=== PATIENT | female | born 1930 | race Two or more races ===

== ENCOUNTER 2016-03-18 13:18 | Inpatient (IN) | payer MEDICARE, OTHER ==
--- NOTE | 2016-03-18 17:34 | RAD ---
INDICATION: Shortness of breath. History of asthma. Previous cardiac surgery. COMPARISON: February 16, 2015 TECHNIQUE: Dual energy PA and routine lateral views of the chest were obtained. REPORT: Elevated lung volumes with mildly coarsened interstitial markings without change. Small calcified granulomas in the RIGHT mid to upper lung zone. LEFT nipple shadow noted. No alveolar consolidation, pleural effusion, pneumothorax. Median sternotomy wires, prosthetic aortic valve, RIGHT ventricular level solitary pacemaker lead. Cardiomegaly. Unremarkable central pulmonary vasculature. IMPRESSION: Stigmata of chronic obstructive pulmonary disease without superimposed acute pulmonary finding. Cardiomegaly without evidence for pulmonary edema.
[2016-03-18] MEDS ORDERED: Albuterol/Ipratropium NEB.SOL* Albuterol 2.5 MG/Ipratropium 0.5 MG 3 ML INH ONE (17:36)
[2016-03-18] MEDS ORDERED: predniSONE TAB* 20 MG PO ONE (17:36)
[2016-03-18 18:04] LABS: Add Diff/Slide Review? Slide Review Added; Comments Flag Yes; Hematocrit 25 % (35-47); Hemoglobin 8.6 g/dl (12.0-16.0); Mean Corpuscular HGB Conc 34 g/dl (31-36); Mean Corpuscular Hemoglobin 41 pg (27-31); Mean Corpuscular Volume 118 fL (80-97); Mean Platelet Volume 8 um3 (7.4-10.4); Red Blood Count 2.13 10^6/ul (4.0-5.4); Red Cell Distribution Width 22 % (10.5-15); White Blood Count 6.9 10^3/ul (3.5-10.8)
[2016-03-18 18:15] LABS: Albumin 4.7 g/dL (3.2-5.2); BUN/Creatinine Ratio 15.7 (8-20); EGFR African American 101.8 (>60); EGFR Non-African American 79.2 (>60); Globulin 2.1 g/dL (2-4); Potassium 3.6 mmol/L (3.5-5.0); Total Bilirubin 1.7 mg/dL (0.2-1.0); Total Protein 6.8 g/dL (6.4-8.9); Troponin I 0.03 ng/mL (<0.04)
[2016-03-18 18:24] LABS: Basophilic Stippling 1+; Macrocytosis 2+; Microcytosis 1+
[2016-03-18] MEDS ORDERED: Iodixanol* (CONTRAST) 320 MG/ML 100 ML SDV IV ONE (18:33)
--- NOTE | 2016-03-18 19:23 | RAD ---
INDICATION: Shortness of breath. Elevated d-dimer. COMPARISON: Chest radiograph of the same date. June 13, 2007 CT. TECHNIQUE: Multidetector CT images were obtained from the lung apices to the upper abdomen with 51 mL Visipaque 320 IV contrast. Pulmonary angiogram protocol. Multiplanar reformation including with maximum intensity projection. REPORT: Severe cardiomegaly as well as small dependent RIGHT pleural effusion with associated volume loss and bilateral compressive atelectasis. Prominence of the interstitial markings bilaterally with patchy groundglass opacity and prominent interlobular septa. Small calcified granulomas at the RIGHT upper to mid lung zone. No suspicious focal pulmonary lesions. Negative for pneumothorax. Negative for thoracic lymphadenopathy. Median sternotomy wires and prosthetic aortic valve. RIGHT ventricular pacemaker lead. Normal diameter thoracic aorta with calcific plaque. Early phase of enhancement precludes assessment for aortic dissection. Artifact mildly limits the CT pulmonary angiogram. No compelling filling defects are identified from the main to the subsegmental pulmonary arteries to indicate presence of a pulmonary embolism. Limited images through the upper abdomen are remarkable for cholelithiasis. Multiple healed bilateral rib fractures. Multilevel degenerative spondylosis. T10-T11 ankylosis. No suspicious focal osseous lesions evident. IMPRESSION: 1. No compelling evidence for pulmonary embolism. 2. The constellation of findings is most consistent with interstitial pulmonary edema with associated small RIGHT pleural effusion.
[2016-03-18] MEDS ORDERED: Ondansetron INJ* 2 MG/ML VIAL IV PRN (20:09)
[2016-03-18] MEDS ORDERED: Acetaminophen TAB* 325 MG PO PRN (20:09)
[2016-03-18] MEDS ORDERED: Furosemide IV* 10 MG/ML 10 ML VIAL (100 MG) IV ONE (20:16)
[2016-03-18] MEDS ORDERED: Potassium Chlor TAB* 20 MEQ TAB.ER PO ONE (20:47)
[2016-03-18] MEDS ORDERED: Enoxaparin(*) 30 MG/0.3 ML SYR SUBCUT SCH (21:00)
[2016-03-18 21:04] LABS: Magnesium 1.9 mg/dL (1.9-2.7)
[2016-03-18] MEDS: Albuterol 2.5 MG/3 ML NEB.SOL* (0.083%) INH PRN (21:04)
[2016-03-18] MEDS ORDERED: Magnesium Sulfate 1 GM IV* 1 GM/100 ML BAG IV ONE (21:10)
[2016-03-18] MEDS: Enoxaparin(*) 30 MG/0.3 ML SYR SUBCUT SCH (22:17)
[2016-03-19] MEDS: CMCS Pravastatin (NF) 20 MG TAB PO SCH ×2 (01:08→20:02)
[2016-03-19] MEDS ORDERED: Magnesium Oxide TAB* 400 MG PO ONE (01:41)
--- NOTE | 2016-03-19 01:44 | HP ---
MEDICINE HISTORY AND PHYSICAL: DATE OF ADMISSION: 03/18/16 PROVIDER: Eulogio Lynne NP ATTENDING PHYSICIAN: Dr. Lisa Marin* (as dictated by Eulogio Lynne NP). PRIMARY CARE PHYSICIAN: Dr. Emperatriz Holloway; Dr. Ana Oakley, Cardiology and Dr. Lunsford, credit risk specialist. CHIEF COMPLAINT: Shortness of breath, referred to ED by her credit risk specialist. HISTORY OF PRESENT ILLNESS: Ms. Hernandez is an 85-year-old female with a past medical history of chronic atrial fibrillation, hypertension, and COPD, who presents to the ED today for evaluation of shortness of breath. The patient herself is a fair historian and is able to tell me about events in her life in the past couple of days. However, in terms of medical history, the patient is very vague in terms of review of symptoms. She states that she does not know why she was brought here. She states that she went to her credit risk specialist this morning for her allergy shot, and she was seen by the credit risk specialist and told to come to the ER and was accompanied here by her aide. In discussion with the patient, I determined from the patient's conversation that she has been increasingly more short of breath, especially with activity. She says that she and her live in a two story home and that she goes up and down the stairs approximately "30 times a day" with no problem. However, recently she has had to stop and take a break while on the stairs. She also reports feeling weak last evening and having some weakness as well as not eating dinner the last evening and having decreased appetite and fluid intake. She also has not been able to do cooking at home as she usually does and does rely on her home health aide to assist with ADLs and activities throughout the home. She denies any chest pain. She denies any recent fever, cold or flu-like symptoms. She denies any weight gain or weight loss. She does not weigh herself. She denies any edema or orthopnea. She denies palpitations, dizziness or syncope. She denies abdominal pain, nausea, vomiting, diarrhea or dysuria. She denies any focal weakness or sensory loss, visual changes, hearing changes or swallowing difficulties. Upon arrival to the ED, the patient was reportedly short of breath and was found to be in AFib in the 80s and 90s. She reportedly was very dyspneic when lying flat on the ED stretcher. She did receive a DuoNeb, prednisone while here in the ER and reports feeling better at this time. At the time of my assessment, she is sitting up in the ED stretcher and is able to speak in full sentences without difficulty. PAST MEDICAL HISTORY: 1. Atrial fibrillation. 2. Hypertension. 3. COPD. 4. History of cardiac arrest x2. 5. History of tracheostomy with removal in the past. 6. History of PEG tube with removal in the past. 7. Osteoarthritis. 8. Osteoporosis. 9. Dyslipidemia. 10. History of TIA. 11. History of GI bleed while on Coumadin in 2012, not anticoagulated. 12. History of anxiety with depression. 13. Hypercholesterolemia. 14. History of hospitalization for chest pain in June 2011 during which time the patient's troponins were 0.1, 0.13 and 0.13. At that time, she was seen by Cardiology and discharged home. PAST SURGICAL HISTORY: 1. Aortic valve replacement with bioprosthetic valve and tricuspid repair at [facility] in January 2011. 2. Pacemaker placement in 2011. 3. History of bilateral total knee replacement. HOME MEDICATIONS: Per the patient's include: 1. Diltiazem ER 240 mg daily. 2. Aspirin 81 mg daily. 3. Pravastatin 10 mg daily. 4. Potassium chloride 20 mEq daily. 5. Levothyroxine 25 mcg daily. 6. Torsemide 10 mg Wednesday, Wednesdays and Fridays. 7. Albuterol 2 puffs inhaled q.4h. p.r.n. 8. Azelastine drops 1 drop both eyes b.i.d. ALLERGIES: No known allergies. FAMILY HISTORY: The patient reports parents who in their 50s while in [place]. No other known history. SOCIAL HISTORY: The patient denies any tobacco, alcohol or illicit drug use. She is retired. She used to do a lot of volunteer work, but states that she is no longer able to do this due to illness. She lives at home with her who is a [employer] professor. She does have a home health aide that helps to provide care at home. Her , Mr. Dariel Hernandez is her healthcare proxy and surrogate decision maker. REVIEW OF SYSTEMS: As per above. A 14-point review of systems was completed. All pertinent positives and negatives are included in the HPI, others not mentioned are negative. PHYSICAL EXAMINATION GENERAL: Ms. Hernandez is a very pleasant, talkative 85-year-old female. She is thin, frail appearing, sitting up in the ED stretcher in no acute distress. She is able to speak in full sentences. VITAL SIGNS: Temperature 97.2, heart rate 83, respiratory rate 22, blood pressure 110/58, and O2 saturation 96% on room air. HEENT: Head is atraumatic, normocephalic. Face is symmetrical. Pupils are equal, round and reactive to light. External ears and nose are normal. Oral mucosa appears moist. There is no oropharyngeal erythema. NECK: Supple. No lymphadenopathy appreciated. No JVD or bruits bilaterally. RESPIRATORY: Lungs are clear to auscultation but there are some mild basilar rales on auscultation posteriorly. There is no visible accessory muscle use. CARDIAC: Irregularly irregular rhythm with a notable systolic murmur that is heard at the upper sternal border and also at the apex. The patient did not have any lower extremity edema and distal pulses are 2+. ABDOMEN: Soft, nontender, nondistended. Bowel sounds are present in all 4 quadrants. MUSCULOSKELETAL: There is a no clubbing or cyanosis. The patient has full range of motion. NEUROLOGIC: Cranial nerves II through XII are grossly intact. The patient has equal other spatial scientist bilaterally. She is able to move all extremities. Sensation is intact to light touch to lower extremities. PSYCH: She is alert and oriented x3. Affect is appropriate. SKIN: Appears grossly intact. LABORATORY DATA AND DIAGNOSTIC STUDIES: CBC: WBC 6.9, hemoglobin 8.6, hematocrit 25, platelet count 307. D-dimer is 300. CMP: Sodium 125, potassium 3.6, chloride 97, carbon dioxide 29, BUN 11, creatinine 0.70, glucose 82. Lactic acid 1.0, calcium 10.0, total bilirubin 1.7, AST 24, ALT 18, alk phos 28, troponin 0.03. BNP 557. Albumin 4.7. The patient's chest x-ray shows stigmata of chronic obstructive pulmonary disease without superimposed acute pulmonary finding. Cardiomegaly without evidence of pulmonary edema. CT of the chest and thorax shows: 1. No compelling evidence of pulmonary embolism. 2. The constellation of findings is most consistent with interstitial pulmonary edema with associated small right pleural effusion. EKG shows atrial fibrillation with an incomplete right bundle branch blocks and nonspecific ST depression in the anterior leads. Old medical records were reviewed. ASSESSMENT AND PLAN: Ms. Hernandez is an 85-year-old female with a past medical history as stated above who presents today with shortness of breath, clinical history secondary to atrial fibrillation and mild congestive heart failure. We will admit her under OBV status to the telemetry floor. The plans are as follows: 1. Dyspnea, suspect congestive heart failure. Admit to telemetry. The patient will be on daily weights, I's and O's. Additionally, I will give her Lasix here and a small dose here in the ER, repeat in the morning. We will monitor patient on telemetry. She is currently rate controlled. Chest x-rays do not show any convincing infiltrates, and the patient is afebrile and has leukocytosis. She already appears to be somewhat improved. She did receive prednisone here in the ED. I did not appreciate any wheezing and will not continue the prednisone at this time but we will monitor closely. She is ordered p.r.n. albuterol as she does take at home. She is on torsemide at home which we will hold for the time being while she is taking IV Lasix. Also, recheck her troponins and maintain patient on aspirin. 2. Atrial fibrillation. Again, patient will be on telemetry, we will continue her on aspirin. Continue her home diltiazem per the patient's previous history and notes she was taken off Coumadin in the past due to gastrointestinal bleeding and is currently not anticoagulated. She is rate controlled, continue to monitor. Check K and mag and keep K above 4 and mag above 2, as well as trend troponins. 3. Asthma and chronic obstructive pulmonary disease. P.r.n. albuterol nebulizers are ordered. The patient has not ordered any other scheduled inhalers and does not appear she takes any other inhalers at home other than p.r.n. albuterol. I will ask nursing to obtain a medication list from the PCP to see if she is on other inhalers. However, the patient states that she only takes ProAir at home. 4. Anemia. The patient is markedly macrocytic, which I see she has had in the past. I will check a stool occult as well as a vitamin B12 and folate. This also may be secondary to chronic disease. Monitor this closely as this may be contributing to her symptoms. Recheck CBC tomorrow. 5. Hyperlipidemia. Continue statin. 6. Hypothyroidism. Continue levothyroxine. 7. FEN. The patient is ordered a heart healthy diet. 8. DVTs prophylaxis. Subcu Lovenox. 9. Code status. The patient is a full code. TIME SPENT: Time spent on this admission was approximately 60 minutes; more than half the time was spent [id number] with the patient obtaining history and physical, performing physical examination, and reviewing the plan of care. The plan of care was also reviewed with my attending, Dr. Marin, who is in agreement. EULOGIO LYNNE NP CC: Dr. Emperatriz Holloway; Dr. Ana Oakley* [id number]/CPS #: [id number] SOUMYA
[2016-03-19] MEDS: Azelastine 0.05% (OPHTH)(NF) 6 ML BTL BOTH EYES SCH ×3 (02:19→19:57)
[2016-03-19 05:08] LABS: Hematocrit 22 % (35-47); Hemoglobin 7.6 g/dl (12.0-16.0); Mean Corpuscular HGB Conc 34 g/dl (31-36); Mean Corpuscular Hemoglobin 40 pg (27-31); Mean Platelet Volume 8 um3 (7.4-10.4); Red Blood Count 1.89 10^6/ul (4.0-5.4); Red Cell Distribution Width 21 % (10.5-15)
[2016-03-19 05:10] LABS: Comments Flag Yes; Mean Corpuscular Volume 118 fL (80-97)
[2016-03-19 05:11] LABS: Add Diff/Slide Review? Slide Review Added
[2016-03-19 05:26] LABS: ALT 15 U/L (7-52); AST 20 U/L (13-39); Alkaline Phosphatase 40 U/L (34-104); Anion Gap 4 mmol/L (2-11); BUN/Creatinine Ratio 20.3 (8-20); Blood Urea Nitrogen 16 mg/dL (6-24); CO2 Carbon Dioxide 29 mmol/L (22-32); Calcium 9.3 mg/dL (8.6-10.3); Chloride 99 mmol/L (101-111); EGFR African American 88.5 (>60); EGFR Non-African American 68.8 (>60); Globulin 1.8 g/dL (2-4); Glucose 190 mg/dL (70-100); Indirect Bilirubin 0.8 mg/dL (0.3-1.0); Potassium 4.8 mmol/L (3.5-5.0); Sodium 132 mmol/L (133-145); Total Protein 5.8 g/dL (6.4-8.9)
[2016-03-19 05:28] LABS: Troponin I 0.03 ng/mL (<0.04)
[2016-03-19] MEDS: Levothyroxine TAB* 25 MCG TAB PO SCH (05:28)
[2016-03-19 06:08] LABS: Folate > 20.00 ng/mL (>3.99)
[2016-03-19 06:09] LABS: Vitamin B12 > 1450 pg/mL (180-914)
[2016-03-19 06:18] LABS: Immature Granulocytes 5 % (0-9); Neutrophil % 80 % (38-83)
[2016-03-19 06:19] LABS: Basophilic Stippling 1+; Hypochromasia 2+; Macrocytosis 2+; Polychromasia 1+
[2016-03-19] MEDS: Diltiazem CD CAP* 240 MG PO SCH (08:40)
[2016-03-19] MEDS: Aspirin Low Dose CHEW TAB* 81 MG PO SCH (08:41)
[2016-03-19] MEDS: Potassium Chlor TAB* 20 MEQ TAB.ER PO SCH (08:42)
[2016-03-19] MEDS: Furosemide IV* 10 MG/ML 10 ML VIAL (100 MG) IV SCH (08:43)
--- NOTE | 2016-03-19 10:53 | PN ---
Subjective Date of Service: 03/19/16 Interval History: Patient seen and examined at bedside. She denies CP, SOB, abd pain, n/v. She states, "I feel okay." Patient is calling out to staff on unit, rather than using call andrews. Telemetry: Atrial fibrillation 120s-140s Family History: Unchanged from Admission Social History: Unchanged from Admission Past Medical History: Unchanged from Admission Objective Active Medications: Acetaminophen (Tylenol Tab*) 650 mg PO Q4H PRN PRN Reason: FEVER/PAIN Albuterol (Ventolin 2.5 Mg/3 Ml Neb.Sasha*) 2.5 mg INH [id number] AWAKE PRN PRN Reason: sob/wheezing Last Admin: 03/18/16 21:04 Dose: 2.5 mg Aspirin (Aspirin Low Dose Tab*) 81 mg PO DAILY [facility] Last Admin: 03/19/16 08:41 Dose: 81 mg Azelastine HCl (Optivar 0.05% (Nf)) 1 drop BOTH EYES BID [facility] Last Admin: 03/19/16 07:18 Dose: Not Given Diltiazem HCl (Cardizem Cd Cap*) 240 mg PO DAILY [facility] Last Admin: 03/19/16 08:40 Dose: 240 mg Enoxaparin Sodium (Lovenox(*)) 30 mg SUBCUT Q24H [facility] Last Admin: 03/18/16 22:17 Dose: 30 mg Furosemide (Lasix Iv*) 20 mg IV DAILY [facility] Last Admin: 03/19/16 08:43 Dose: 20 mg Levothyroxine Sodium (Synthroid Tab*) 25 mcg PO DAILY@0600 [facility] Last Admin: 03/19/16 05:28 Dose: 25 mcg Ondansetron HCl (Zofran Inj*) 4 mg IV Q6H PRN PRN Reason: NAUSEA/VOMITING Potassium Chloride (Klor Con Er Tab*) 20 meq PO DAILY [facility] Last Admin: 03/19/16 08:42 Dose: 20 meq Pravastatin Sodium (Pravachol (Nf)) 10 mg PO QPM [facility] PRN Reason: Protocol Last Admin: 03/19/16 01:08 Dose: 10 mg Vital Signs 03/18/16 03/18/16 03/18/16 21:00 21:06 21:30 Temperature Pulse Rate 78 86 130 Respiratory 21 20 Rate Blood Pressure 124/66 119/75 (mmHg) O2 Sat by Pulse 97 99 94 Oximetry 03/18/16 03/18/16 03/18/16 22:00 22:11 22:30 Temperature Pulse Rate 84 79 91 Respiratory 24 24 27 Rate Blood Pressure 97/73 130/43 (mmHg) O2 Sat by Pulse 93 96 96 Oximetry 03/18/16 03/18/16 03/19/16 23:00 23:30 00:00 Temperature Pulse Rate 81 78 60 Respiratory 24 26 21 Rate Blood Pressure 132/78 (mmHg) O2 Sat by Pulse 93 95 97 Oximetry 03/19/16 03/19/16 03/19/16 00:01 00:30 01:00 Temperature Pulse Rate 72 65 82 Respiratory 23 26 25 Rate Blood Pressure 126/66 125/42 118/39 (mmHg) O2 Sat by Pulse 98 95 96 Oximetry 03/19/16 03/19/16 03/19/16 01:30 02:00 02:44 Temperature 98.3 F Pulse Rate 117 99 89 Respiratory 27 27 18 Rate Blood Pressure 147/47 114/69 141/50 (mmHg) O2 Sat by Pulse 95 97 99 Oximetry 03/19/16 03/19/16 03/19/16 02:54 03:06 07:32 Temperature 98.3 F 98.1 F Pulse Rate 89 85 Respiratory 16 16 18 Rate Blood Pressure 141/50 104/44 (mmHg) O2 Sat by Pulse 99 98 Oximetry 03/19/16 09:41 Temperature Pulse Rate 100 Respiratory 16 Rate Blood Pressure (mmHg) O2 Sat by Pulse 98 Oximetry Oxygen Devices in Use Now: None Appearance: Frail, elderly female, lying in bed, mildly tachypneic but able to talk in complete sentences Eyes: PERRLA Ears/Nose/Mouth/Throat: Clear Oropharnyx, Mucous Membranes Moist Neck: NL Appearance and Movements; NL JVP Respiratory: Symmetrical Chest Expansion and Respiratory Effort, Clear to Auscultation - diminished Cardiovascular: - - irregularly irregular, rapid, systolic murmur 3/6 Abdominal: NL Sounds; No Tenderness; No Distention Extremities: - - 1+ BLE edema Neurological: Alert and Oriented x 3 Lines/Tubes/Other Access: Clean, Dry and Intact Peripheral IV Nutrition: Taking PO's Result Diagrams: 03/19/16 04:58 03/19/16 04:58 Assess/Plan/Problems-Billing Assessment: Ms. Hernandez is an 85 yo female with a PMH of afib, HTN, COPD, OA, dyslipidemia, TIA, GIB, and anxiety/depression who presented on 03/18/16 with SOB secondary to afib and suspected CHF. - Patient Problems (1) Dyspnea Code(s): R06.00 - DYSPNEA, UNSPECIFIED Comment: Improved. Patient a poor historian; per her axle turner, pt presented to axle turner 's office SOB and with peripheral edema, suspect CHF exacerbation and afib with RVR. Patient also anemic. Continue small doses of IV Lasix, transfuse 2 unit PRBC today. Echocardiogram ordered. No increased O2 needs. (2) Atrial fibrillation with RVR Code(s): I48.91 - UNSPECIFIED ATRIAL FIBRILLATION Comment: Patient in RVR this morning; home diltiazem given. Patient also received 1 dose of digoxin with good effect, now rate controlled. Patient has a history of chronic atrial fibrillation, per her records. She is not on warfarin due to a previous GI bleed. (3) COPD (chronic obstructive pulmonary disease) Code(s): J44.9 - CHRONIC OBSTRUCTIVE PULMONARY DISEASE, UNSPECIFIED Comment: Continue Spiriva, PRN nebulizers. No increased oxygen needs. (4) Myelodysplasia (myelodysplastic syndrome) Code(s): D46.9 - MYELODYSPLASTIC SYNDROME, UNSPECIFIED Comment: Follows with Dr. Steel in the outpatient. Stool occult ordered. Patient dyspneic and has complicated cardiac history - in the presence of 7.6/22 on CBC , will transfuse 2 units. Recheck CBC in AM. (5) HLD (hyperlipidemia) Code(s): E78.5 - HYPERLIPIDEMIA, UNSPECIFIED Comment: Continue pravastatin. (6) Hypothyroidism Code(s): E03.9 - HYPOTHYROIDISM, UNSPECIFIED Comment: Continue levothyroxine. (7) DVT prophylaxis Comment: SQ Lovenox Status and Disposition: OBV admit to inpatient.
[2016-03-19] MEDS ORDERED: Digoxin IV* 0.5 MG/2 ML AMP (0.25 MG/ML) IV SLOW PU ONE (11:08)
[2016-03-19] MEDS: Albuterol 2.5 MG/3 ML NEB.SOL* (0.083%) INH PRN ×2 (17:09→21:21)
[2016-03-19] MEDS: MAGNESIUM CITRATE PO SCH (20:03)
[2016-03-19] MEDS: Enoxaparin(*) 30 MG/0.3 ML SYR SUBCUT SCH (21:26)
[2016-03-20 05:31] LABS: Hematocrit 32 % (35-47); Hemoglobin 11.2 g/dl (12.0-16.0); Mean Corpuscular HGB Conc 35 g/dl (31-36); Mean Corpuscular Hemoglobin 37 pg (27-31); Mean Corpuscular Volume 105 fL (80-97); Mean Platelet Volume 8 um3 (7.4-10.4); Red Blood Count 3.08 10^6/ul (4.0-5.4); Red Cell Distribution Width 30 % (10.5-15); White Blood Count 8.2 10^3/ul (3.5-10.8)
[2016-03-20 05:33] LABS: Add Diff/Slide Review? Slide Review Added; Comments Flag Yes
[2016-03-20] MEDS: Levothyroxine TAB* 25 MCG TAB PO SCH (05:39)
[2016-03-20] MEDS: MAGNESIUM CITRATE PO SCH (08:10)
[2016-03-20] MEDS: Azelastine 0.05% (OPHTH)(NF) 6 ML BTL BOTH EYES SCH (08:10)
[2016-03-20] MEDS: Potassium Chlor TAB* 20 MEQ TAB.ER PO SCH (08:15)
[2016-03-20] MEDS: Aspirin Low Dose CHEW TAB* 81 MG PO SCH (08:15)
[2016-03-20] MEDS: Diltiazem CD CAP* 240 MG PO SCH (08:15)
[2016-03-20] MEDS: Furosemide IV* 10 MG/ML 10 ML VIAL (100 MG) IV SCH (08:15)
[2016-03-20] MEDS ORDERED: Spiriva Inhaler DEVICE* 1 EACH DEVICE INH ONE (09:00)
[2016-03-20] MEDS ORDERED: Prenatal Vitamin TAB PO SCH (09:00)
[2016-03-20] MEDS ORDERED: Calcium Citrate TAB* 200 MG PO SCH (09:00)
[2016-03-20] MEDS ORDERED: Tiotropium CAP.INH* CAP.INH/18 MCG (USE ORDER SET !) INH SCH (09:00)
[2016-03-20] MEDS ORDERED: Cholecalciferol TAB* 400 UNIT PO SCH (09:00)
[2016-03-20] MEDS: Albuterol 2.5 MG/3 ML NEB.SOL* (0.083%) INH PRN (09:20)
[2016-03-20 11:29] VITALS: BP 126/50
--- NOTE | 2016-03-20 11:56 | ED ---
Brisa Gabriel Adam, scribed for Vito Hoyos MD on 03/18/16 at 1725 . Shortness of Breath - HPI Summary HPI Summary: An 85 y/o female presents to the ED sent from her carton forming machine tender (Dr. Lunsford) c/o SOB for 1 week, aggravated by movement and worse in the morning. Other symptoms include increased edema in her lower extremities, increased thirst, and decreased appetite. Uses a nebulizer at home. She denies any cough or CP. PMHx includes hyperlipidemia, paroxysmal Afib, osteoporosis, asthma, and an implanted pacemaker. FHx is negative. Does not use alcohol or tobacco. - History of Current Complaint Chief Complaint: EDShortnessOfBreath Time Seen by Provider: 03/18/16 16:42 Hx Obtained From: Patient, Family/Cooker Helper - and tree worker Onset/Duration: Gradual Onset, Lasting Weeks - 1 week Current Severity: Mild Dyspnea At: Exertion Aggrevating Factors: Movement Alleviating Factors: Nothing Associated Signs & Symptoms: Edema - lower extremity - Allergy/Home Medications Allergies/Adverse Reactions: Allergies Allergy/AdvReac Type Severity Reaction Status Date / Time No Known Allergies Allergy Verified 02/16/15 08:14 PMH/Surg Hx/FS Hx/Imm Hx Cardiovascular History: Reports: Hx Atrial Fibrillation, Hx Hypercholesterolemia , Hx Pacemaker/ICD, Other Cardiovascular Problems/Disorders - open heart surgery Respiratory History: Reports: Hx Asthma, Hx Chronic Obstructive Pulmonary Disease (COPD) - Surgical History Surgery Procedure, Year, and Place: open heart, unsure of year. knee surgery. Pacemaker Infectious Disease History: No Infectious Disease History: Denies: Traveled Outside the [place] in Last 30 Days - Family History Known Family History: Negative: Cardiac Disease, Diabetes - Social History Occupation: Retired Lives: With Family Alcohol Use: None Substance Use Type: Reports: None Smoking Status (MU): Never Smoked Tobacco Review of Systems Positive: Other - Decreased appetite. Increased thirst.. Negative: Fever, Chills Eyes: Negative Negative: Erythema ENT: Negative Negative: Sore Throat Cardiovascular: Negative Negative: Chest Pain Positive: Shortness Of Breath. Negative: Cough Negative: Abdominal Pain, Vomiting, Nausea Genitourinary: Negative Negative: dysuria, hematuria Positive: Edema - Lower extremity. Negative: Myalgia Skin: Negative Negative: Rash Neurological: Negative, Other - Negative: dizziness Psychological: Normal All Other Systems Reviewed And Are Negative: Yes Physical Exam - Summary Physical Exam Summary: Constitutional: Well-developed, Well-nourished, Alert. (-) Distressed Skin: Warm, Dry HENT: Normocephalic; Atraumatic Eyes: Conjunctiva normal Neck: Musculoskeletal ROM normal neck. (-) JVD, (-) Stridor, (-) Tracheal deviation Cardio: Rhythm regular, rate normal, Heart sounds normal; Intact distal pulses; The pedal pulses are 2+ and symmetric. Radial pulses are 2+ and symmetric. (-) Murmur Pulmonary/Chest wall: Effort normal. (-) Respiratory distress, (-) Wheezes, (-) Rales, Faint crackles in bilateral lung bases Abd: Soft, (-) Tenderness, (-) Distension, (-) Guarding, (-) Rebound Musculoskeletal: (-) Edema Lymph: (-) Cervical adenopathy Neuro: Alert, Oriented x3 Psych: Mood and affect Normal Vital Signs On Initial Exam: Initial Vitals Temp Pulse Resp BP Pulse Ox 97.2 F 90 16 121/78 97 03/18/16 13:26 03/18/16 13:26 03/18/16 13:26 03/18/16 13:26 03/18/16 13:26 Diagnostics - Vital Signs Vital Signs Temp Pulse Resp BP Pulse Ox 03/18/16 13:26 97.2 F 90 16 121/78 97 - Laboratory Result Diagrams: 03/18/16 17:47 03/18/16 17:47 Lab Statement: Any lab studies that have been ordered have been reviewed, and results considered in the medical decision making process. - Radiology CXR Xray Interpretation: Positive (See Comments) - IMPRESSION: Stigmata of chronic obstructive pulmonary disease without superimposed acute pulmonary finding. Cardiomegaly without evidence for pulmonary edema. Radiology Interpretation Completed By: Radiologist - EKG 13:33 Cardiac Rate: NL - 82 EKG Rhythm: Atrial Fibrillation EKG Interpretation: No STEMI, RBBB Course/Dx - Course Assessment/Plan: Chronic anemia. Do not suspect anemia sole source of SOB. R/O PE, RO acute coronary syndrome. - Diagnoses Provider Diagnoses: Dyspnea on exertion - Physician Notifications Discussed Care of Patient With: Dr. Schmidt (19:00) - Agrees to admit patient and is aware that CTA chest results are not back yet. Discharge - Discharge Plan Condition: Stable Disposition: ADMITTED TO [facility] documentation as recorded by the Brisa lobo Adam accurately reflects the service I personally performed and the decisions made by me, Vito Hoyos MD.
--- NOTE | 2016-03-20 12:38 | ECHO ---
Patient: KYUNG SAUCEDO [facility] Rec#: [id number] : 1930 Date: 03/20/2016 Age: 85y Height: 0 cm / .0 in Weight: 0 kg / .0 lbs Sex: F BSA: 1.13 Room#: [facility] Admit Date#: 03/19/2016 Type: Inpatient Referring: Renetta Ballard Reading: Aurelio Lisa MD Director Intelligence Analysis Programs: Derek Wooten RDCS Transthoracic Echocardiogram Indication: CHF BP: 148/77 HR: 84 Rhythm: A-Fib Findings History: A.fib, HTN, COPD, cardiomegaly, cardiac arrest, HLD, TIA, bioprosthetic AVR, pacemaker Technical Comments: The study quality is good. Left Ventricle: The left ventricular chamber size is normal. Mild concentric left ventricular hypertrophy is observed. Global left ventricular wall motion and contractility are within normal limits. The left ventricle appears hyperdynamic. The estimated ejection fraction is greater than 65%. The assessment of diastolic function is non-diagnostic. Left Atrium: The left atrium is severely dilated. Right Ventricle: The right ventricular cavity size is normal. A pacemaker wire is visualized in the right ventricle. Right Atrium: The right atrium is moderate to severely dilated. Aortic Valve: The bio-prosthetic aortic valve appears to be functioning normally. Mitral Valve: Moderate mitral annular calcification present. There is mild mitral valve prolapse. There is moderate mitral regurgitation. There is borderline mitral stenosis. Tricuspid Valve: There is mild tricuspid regurgitation. There is evidence of mild to moderate pulmonary hypertension. Pulmonic Valve: There is mild pulmonic regurgitation. Pericardium: There is no pericardial effusion. No pleural effusion is present. Aorta: There is no dilatation of the ascending aorta. The aortic arch is not well visualized. There is no dilation of the aortic root. Pulmonary Artery: The main pulmonary artery is not well visualized. Venous: The inferior vena cava appears normal in size. There is a greater than 50% respiratory change in the inferior vena cava dimension. Summary: There are no significant changes when compared to the previous study done on 02/28/16, no overt sig changes noticed. Conclusions Mild concentric left ventricular hypertrophy is observed. The left ventricle appears hyperdynamic. The estimated ejection fraction is greater than 65%. The left atrium is severely dilated. The right atrium is moderate to severely dilated. The right atrium is moderate to severely dilated. The bio-prosthetic aortic valve appears to be functioning normally. There is mild mitral valve prolapse. There is moderate mitral regurgitation. There is mild tricuspid regurgitation. There is evidence of mild to moderate pulmonary hypertension. Measurements Name Value Normal Range RVIDd (AP) 2D 1.2 cm (0.9 - 2.6) RVDdMajor (2D) 3 cm (2.2 - 4.4) RAd ISD 4CH 5.4 cm (3.4 - 4.9) RA (A4C)W 3.6 cm (2.9 - 4.6) IVSd (2D) 1.2 cm (0.6 - 1) LVPWd (2D) 1.1 cm (0.6 - 1) LVIDd (2D) 3.4 cm (3.6 - 5.4) LVIDs (2D) 3 cm - Aortic Annulus 1.3 cm (1.4 - 2.6) Ao root diameter (2D) 1.6 cm (2.1 - 3.5) Ascending Ao 3.5 cm (2.1 - 3.4) LA dimension (AP) 2D 4.6 cm (2.3 - 3.8) LAd ISD 4CH 5.5 cm (2.9 - 5.3) LA ISD 4CH W 5.3 cm (2.5 - 4.5) Name Value Normal Range LA ESV SP 4CH (A/L) 132.68 ml - LA ESV SP 2CH (A/L) 60.7 ml - LA ESV BP (A/L) 95.07 ml - LA ESV BP (A/L) index 84.13 ml/m2 - LA ESV SP 4CH (MOD) 106.65 ml - LA ESV SP 2CH (MOD) 61.79 ml - Name Value Normal Range MV E-wave Vmax 1.37 m/sec - MV deceleration time 102.08 msec - MV A-wave Vmax 0.44 m/sec - MV E:A ratio 3.16 ratio - LV septal e' Vmax 0.5 m/sec - LV lateral e' Vmax 0.7 m/sec - Name Value Normal Range AV Vmax 2.3 m/sec - AV VTI 40.5 cm - AV peak gradient 21 mmHg - AV mean gradient 12 mmHg - LVOT diameter 1.7 cm - LVOT Vmax 0.76 m/sec - LVOT VTI 14.8 cm - KIMBERLEY (continuity Vmax) 0.8 cm2 - KIMBERLEY (continuity VTI) 0.8 cm2 - Name Value Normal Range MV Vmax 0.97 m/sec - MV VTI 13.77 cm - MV peak gradient 5.38 mmHg - MV mean gradient 1.47 mmHg - MV PHT 38.79 msec - MVA (PHT) 5.67 cm2 - MVA (continuity VTI) 2.01 cm2 - Name Value Normal Range TR Vmax 3.3 m/sec - TR peak gradient 43 mmHg - IVC diameter 1.5 cm - Name Value Normal Range PV Vmax 0.87 m/sec - PV peak gradient 3.01 mmHg -
--- NOTE | 2016-03-20 14:10 | DCNOTE ---
Subjective Date of Service: 03/20/16 Interval History: Patient seen and examined at bedside. She is laying comfortably in the bed at 30 degrees. Her home health nurse and are in the room with her. The patient and her nurse report that she does much of the cooking. The nurse reports that the patient does use a lot of pre-prepared foods such as rice-a- nadine and canned goods. The patient also states, "I add a lot of salt with the spices." We discussed the risk of increased sodium intake with her history of right and left sided CHF. The patient and her were able to verbalize back to me the importance of reducing sodium intake and choosing no added sodium foods. The patient reports she "fatigues easily;" PT reports that the patient was very driven to walk and insisted on walking longer distances around the unit. No acute PT concerns. She reports chronic belly pain but agrees that she will follow up with her PCP and perhaps GI in order to address this, as it has been ongoing for several months. She has no increased O2 needs. She denies CP, SOB at rest, n/v. She does become mildly dyspneic with exertion. and home nurse feel she is at her baseline. Telemetry: Afib 70s-80s Family History: Unchanged from Admission Social History: Unchanged from Admission Past Medical History: Unchanged from Admission Objective Active Medications: Acetaminophen (Tylenol Tab*) 650 mg PO Q4H PRN PRN Reason: FEVER/PAIN Last Admin: 03/19/16 13:31 Dose: 650 mg Albuterol (Ventolin 2.5 Mg/3 Ml Neb.Sasha*) 2.5 mg INH [id number] AWAKE PRN PRN Reason: sob/wheezing Last Admin: 03/20/16 09:20 Dose: 2.5 mg Aspirin (Aspirin Low Dose Tab*) 81 mg PO DAILY [facility] Last Admin: 03/20/16 08:15 Dose: 81 mg Azelastine HCl (Optivar 0.05% (Nf)) 1 drop BOTH EYES BID [facility] Last Admin: 03/20/16 08:10 Dose: Not Given Calcium Citrate (Citracal Tab*) 200 mg PO DAILY [facility] Last Admin: 03/20/16 08:10 Dose: Not Given Cholecalciferol (Vitamin D Tab*) 400 unit PO DAILY [facility] Last Admin: 03/20/16 08:15 Dose: 400 unit Diltiazem HCl (Cardizem Cd Cap*) 240 mg PO DAILY [facility] Last Admin: 03/20/16 08:15 Dose: 240 mg Enoxaparin Sodium (Lovenox(*)) 30 mg SUBCUT Q24H [facility] Last Admin: 03/19/16 21:26 Dose: 30 mg Furosemide (Lasix Iv*) 20 mg IV DAILY [facility] Last Admin: 03/20/16 08:15 Dose: 20 mg Levothyroxine Sodium (Synthroid Tab*) 25 mcg PO DAILY@0600 [facility] Last Admin: 03/20/16 05:39 Dose: 25 mcg Multivitamins ( Vitamin Tab*) 1 tab PO DAILY [facility] Last Admin: 03/20/16 08:15 Dose: 1 tab Non-Formulary Medication (Magnesium Citrate (Mg Suppleme [Magnesium Citrate]) 200 mg PO BID [facility] Last Admin: 03/20/16 08:10 Dose: Not Given Ondansetron HCl (Zofran Inj*) 4 mg IV Q6H PRN PRN Reason: NAUSEA/VOMITING Potassium Chloride (Klor Con Er Tab*) 20 meq PO DAILY [facility] Last Admin: 03/20/16 08:15 Dose: 20 meq Pravastatin Sodium (Pravachol (Nf)) 10 mg PO QPM [facility] PRN Reason: Protocol Last Admin: 03/19/16 20:02 Dose: 10 mg Tiotropium [place] (Spiriva Cap.Inh*) 1 cap INH DAILY [facility] Last Admin: 03/20/16 09:20 Dose: 1 cap Vital Signs 03/19/16 03/19/16 03/19/16 20:00 20:11 20:16 Temperature 98.2 F 98.0 F Pulse Rate 84 72 Respiratory 16 17 Rate Blood Pressure 116/56 114/69 (mmHg) O2 Sat by Pulse 97 98 Oximetry 03/19/16 03/20/16 03/20/16 23:23 03:23 07:36 Temperature 98.4 F 97.7 F 97.4 F Pulse Rate 88 93 105 Respiratory 16 20 20 Rate Blood Pressure 145/58 148/77 143/61 (mmHg) O2 Sat by Pulse 95 99 96 Oximetry 03/20/16 03/20/16 03/20/16 08:00 09:23 10:58 Temperature 98.3 F Pulse Rate 55 108 Respiratory 20 20 18 Rate Blood Pressure 126/50 (mmHg) O2 Sat by Pulse 98 99 Oximetry Oxygen Devices in Use Now: None Appearance: Frail, elderly female patient, lying in bed, in NAD Eyes: PERRLA Ears/Nose/Mouth/Throat: Mucous Membranes Moist Neck: NL Appearance and Movements; NL JVP Respiratory: Symmetrical Chest Expansion and Respiratory Effort, Clear to Auscultation Cardiovascular: - - S1, S2 irregular rate/rhythm Abdominal: NL Sounds; No Tenderness; No Distention Extremities: No Edema Neurological: Alert and Oriented x 3 Lines/Tubes/Other Access: Clean, Dry and Intact Peripheral IV Nutrition: Taking PO's Result Diagrams: 03/20/16 05:03 03/19/16 04:58 Microbiology and Other Data: Microbiology 03/20/16 11:20 Nasal Screen MRSA (PCR)(JACOB) - Final Nasal Mrsa Negative Assess/Plan/Problems-Billing Assessment: Ms. Hernandez is an 85 yo female with a PMH of afib, HTN, COPD, OA, dyslipidemia, TIA, GIB, and anxiety/depression who presented on 03/18/16 with SOB secondary to afib and suspected CHF. - Patient Problems (1) Dyspnea Code(s): R06.00 - DYSPNEA, UNSPECIFIED Comment: Improved. Suspect CHF exacerbation and afib with RVR coupled with anemia. No increased O2 needs. (2) CHF exacerbation Code(s): I50.9 - HEART FAILURE, UNSPECIFIED Comment: Patient with a history of left and right sided CHF. Suspect patient's salt intake precipitated exacerbation and pushed patient into RVR. Extensive education provided on limiting salt intake. Family and pt verbalized understanding. Continue outpatient follow-up with PCP. Continue Torsemide. (3) Atrial fibrillation with RVR Code(s): I48.91 - UNSPECIFIED ATRIAL FIBRILLATION Comment: Rate controlled. Continue diltiazem. Patient has a history of chronic atrial fibrillation, per [facility] records. She is not on warfarin due to a previous GI bleed. I did discuss reinitiation of anticoagulation, pt and family will address with PCP. (4) COPD (chronic obstructive pulmonary disease) Code(s): J44.9 - CHRONIC OBSTRUCTIVE PULMONARY DISEASE, UNSPECIFIED Comment: Continue Spiriva, PRN nebulizers. No increased oxygen needs. (5) Myelodysplasia (myelodysplastic syndrome) Code(s): D46.9 - MYELODYSPLASTIC SYNDROME, UNSPECIFIED Comment: H/H improved. Recheck CBC next week and follow-up with PCP. Follows with Dr. Steel in the outpatient. Unable to obtain stool occult. (6) HLD (hyperlipidemia) Code(s): E78.5 - HYPERLIPIDEMIA, UNSPECIFIED Comment: Continue pravastatin. (7) Hypothyroidism Code(s): E03.9 - HYPOTHYROIDISM, UNSPECIFIED Comment: Continue levothyroxine. (8) DVT prophylaxis Comment: SQ Lovenox Status and Disposition: OBV admit to inpatient. D/c to home.
--- NOTE | 2016-03-21 21:23 | DS ---
MEDICINE DISCHARGE SUMMARY: DATE OF ADMISSION: 03/18/16 DATE OF DISCHARGE: 03/20/16 ATTENDING PHYSICIAN: Dr. Stephan Gonzales *(as dictated by Eulogio Lynne NP). PRIMARY CARE PROVIDER: Dr. Gudelia Holloway. PRIMARY DISCHARGE DIAGNOSES: 1. Congestive heart failure exacerbation. 2. Atrial fibrillation with RVR. 3. Anemia, likely secondary to myelodysplastic syndrome. SECONDARY DISCHARGE DIAGNOSES: 1. Hypertension. 2. Chronic obstructive pulmonary disease. 3. Osteoarthritis. 4. Osteoporosis. 5. Dyslipidemia. 6. History of GI bleed on Coumadin in 2011. 7. History of transient ischemic attack. 8. History of anxiety with depression. 9. Hypercholesterolemia. 10. History of hospitalization for chest pain in June 2011. 11. History of cardiac arrest x2. 12. History of tracheostomy removal in the past. 13. History of PEG tube with removal in the past. 14. History of aortic valve replacement with bioprosthetic valve and tricuspid repair in 2010. 15. Pacemaker placement in 2011. 16. History of congestive heart failure. 17. Myelodysplastic syndrome. MEDICATIONS AT DISCHARGE: 1. Torsemide 10 mg Wednesday, Wednesday, Wednesday. 2. Spiriva 18 mcg daily. 3. Pravastatin 10 mg daily. 4. Potassium chloride ER 10 mEq daily. 5. Multivitamin 1 tab daily. 6. Magnesium citrate 200 mg b.i.d. 7. Levothyroxine 25 mcg daily. 8. Glucosamine chondroitin 1 chew daily. 9. Perforomist nebulizer solution 20 mcg inhaled b.i.d. 10. Diltiazem 240 mg daily. 11. Calcium citrate vitamin D 1 tab daily. 12. Budesonide 0.25 mg inhaled b.i.d. 13. Azelastine eyedrops 1 drop both eyes b.i.d. 14. Aspirin 81 mg daily. 15. Albuterol 2 puffs inhaled q.4 hours p.r.n. DIAGNOSTIC TESTS DURING THE PATIENT'S COURSE OF STAY: Chest x-ray. Impression : Stigmata of chronic obstructive pulmonary disease without superimposed acute pulmonary findings. Cardiomegaly without evidence for pulmonary findings. Cardiomegaly without evidence for pulmonary edema. CT of the chest and thorax. Impression: No compelling evidence for pulmonary embolism. Constellation of findings is most consistent with interstitial pulmonary edema with associated small right pleural effusion. Transthoracic echocardiogram. Conclusion: Mild concentric left ventricular hypertrophy is observed. The left ventricle appears hyperdynamic. The estimated ejection is greater than 65%. The left atrium is severely dilated. The right atrium is moderately to severely dilated. The bioprosthetic aortic valve appears to be functionally normal. There is mild mitral valve prolapse. There is moderate mitral regurgitation. There is mild tricuspid regurgitation. There is evidence of [id number] pulmonary hypertension. There are no significant changes when compared to the previous study done on 02/28/16. No overt significant change is noted. HOSPITAL COURSE OF STAY: For full details, please refer to the H and P. In summary, Ms. Hernandez is an 85-year-old female with a past medical history as stated above who presented to the ED on 03/18/16 after being referred by her wood pile driver operator, Dr. Lunsford. I spoke with Dr. Lunsford and she stated that when the patient arrived to the office that she was short of breath and had peripheral edema. She stated that she did not know the patient even had a history of atrial fibrillation and was not aware of her cardiac history. This is conflicting with my interview with the patient who was very vague as per her cardiac history and her symptoms. She stated that she did not know why she was referred to the ED and stated that she felt fine. However, in conversation, the patient did state that she had increased dyspnea with exertion at home, had decreased p.o. intake, has been feeling increasingly more weak. Upon evaluation , the patient was found to be in atrial fibrillation in the ED and was noticeably dyspneic when she was lying flat on the ED stretcher. She was treated with DuoNeb with prednisone which did seem to treat her symptoms. I also gave the patient some Lasix with good effect and continued the patient on IV Lasix while she was here in the hospital. She did have a period the following morning where she went into rapid AFib which we were able to control with her home diltiazem and a dose of digoxin. The patient does have a history of MDS. She does follow Dr. Steel and she was notably anemic on 03/19/16 with a hemoglobin and hematocrit of 7.6 and 22; given her cardiac history and her symptoms, she was transfused 2 units of blood with good effect and she is now 11.2 and 32. I did attempt to obtain a stool occult, but the patient did not have any stool in the rectal vault at the time of my attempt. We were not able to obtain a stool sample prior to discharge. The patient will follow up with her PCP and obtain a CBC in the outpatient setting to monitor her CBC. Additionally, I was able to speak with the family regarding the patient prior to discharge. Again, the patient was not very forthcoming in providing details at home; however, when I spoke with her home health nurse and her who came in to see her on the day of discharge, I was able to determine that the patient does do cooking at home and she did state that she does add a lot of salt to her food. She also states that that they use a lot of prepared food such as Rice-A-Malcom and canned goods. We discussed hidden salt in these foods as well as the importance of limiting salt intake in order to help control her CHF and limit the strain on her heart. Her home health nurse and verbalized understanding. The patient was able to verbalize back to me that she will be more mindful of her salt intake and try not to use as much pre- prepared foods that comes with salt already added in. The patient most likely due to her diet had a CHF exacerbation which may have worsened her atrial fibrillation and precipitated her RVR. The patient's states that he does make sure she takes all of her medications when I expressed concern that the patient was not taking her medications as prescribed because when I asked her what she takes, she was unable to tell me and told me she takes no pills. She was also seen using her Spiriva as a rescue inhaler while she was here in the hospital. We did discuss the important use of this. However, her was able to appropriately tell me how to use these medications. In any case, we did obtain a VNS referral to evaluate in the home and to see if any additional services we can offer this family. The patient had some other chronic complaints prior to discharge such as belly pain that comes and goes. However, she denies any vomiting or bloody stools. She says it does happen after eating. I did advise her to stay sitting up after eating and also recommended that she discuss this with her PCP as she may need a GI referral. I saw in the records that she had a history of PEG tube in the past and stated that this also could be a good reason to have an endoscopy to further investigate this. She did agree with this as well. The patient requested to go home and both her and her home health nurse felt the patient is at her baseline and felt comfortable taking her home. CONDITION AT DISCHARGE: The patient is discharged to home on 03/20/16 with a plan to follow up with her PCP next week on 03/26/16. They state that there is an appointment with Dr. Oakley that they will keep. Additionally, I did remind them that they should have a repeat CBC prior to meeting with her physician in order to further monitor the patient's anemia. The patient should also follow up with Dr. Steel as appropriate. DIET: Heart healthy, low-sodium diet. ACTIVITY: As tolerated. CONDITION: Improved. DISPOSITION: To home with home health services. TIME SPENT: Time spent on this discharge was approximately 45 minutes. Again, this is only a brief summary of the patient's hospital course and stay. For full details, please refer to the full medical record. If you any further questions, please feel free to contact me at [phone]. EULOGIO LYNNE NP CC: Dr. Gudelia Holloway; Dr. Oakley; Dr. Steel* [id number]/[facility] #: [id number] SOUMYA
== END 2016-03-20 14:55 | disposition home health service (06) | DRG 293 ==
LOC: ED 13:18 → EDHOLD 20:09 → MEDTELE 03-19 01:08 → OBSVTOIN 03-19 17:37
PROVIDERS: ADMIT Pediatrics; ATTEND Internal Medicine
PROC: 30233N1 Transfusion of Nonautologous Red Blood Cells into Peripheral Vein, Percutaneous Approach (ICD-10-PCS; principal; 2016-03-19)
DX: I11.0 Hypertensive heart disease with heart failure (principal); I27.2 Other secondary pulmonary hypertension; I48.0 Paroxysmal atrial fibrillation; J44.9 Chronic obstructive pulmonary disease, unspecified; I48.2 Chronic atrial fibrillation; M19.90 Unspecified osteoarthritis, unspecified site; M81.0 Age-related osteoporosis without current pathological fracture; E78.5 Hyperlipidemia, unspecified; F41.9 Anxiety disorder, unspecified; F32.9 Major depressive disorder, single episode, unspecified; E78.00 Pure hypercholesterolemia, unspecified; Z96.653 Presence of artificial knee joint, bilateral; J45.909 Unspecified asthma, uncomplicated; E03.9 Hypothyroidism, unspecified; D53.9 Nutritional anemia, unspecified; D46.9 Myelodysplastic syndrome, unspecified; G89.29 Other chronic pain; R10.9 Unspecified abdominal pain; I50.9 Heart failure, unspecified; I08.1 Rheumatic disorders of both mitral and tricuspid valves; Z86.73 Personal history of transient ischemic attack (TIA), and cerebral infarction without residual deficits; Z95.2 Presence of prosthetic heart valve; Z95.0 Presence of cardiac pacemaker; Z79.82 Long term (current) use of aspirin
CPT/HCPCS: 36415; 71020; 71275; 80048; 80053; 80076; 82607; 82746; 83605; 83735; 83880; 84484; 85025; 85060; 85379; 86850; 86900; 86901; 86922; 87040; 87641; 93005; 93306; 94640; 94760; 96374; 99285; A9270-GY; G0378; G8978-GP-CJ; G8979-GP-CI; G8980-GP-CJ; J1160; J1650; J1940; J3475; J7512; P9016; Q9967

== ENCOUNTER 2016-07-02 23:12 | Inpatient (IN) | payer MEDICARE, OTHER ==
[2016-07-03 00:07] LABS: Hematocrit 27 % (35-47); Hemoglobin 8.9 g/dl (12.0-16.0); Mean Corpuscular HGB Conc 33 g/dl (31-36); Mean Corpuscular Hemoglobin 40 pg (27-31); Mean Corpuscular Volume 124 fL (80-97); Mean Platelet Volume 9 um3 (7.4-10.4); Red Blood Count 2.22 10^6/ul (4.0-5.4); Red Cell Distribution Width 24 % (10.5-15); White Blood Count 17.5 10^3/ul (3.5-10.8)
[2016-07-03 00:09] LABS: Add Diff/Slide Review? Slide Review Added; Comments Flag Yes
[2016-07-03 00:15] LABS: Albumin 4.4 g/dL (3.2-5.2); BUN/Creatinine Ratio 28.4 (8-20); Calcium 9.3 mg/dL (8.6-10.3); EGFR Non-African American 60.6 (>60); Globulin 2.4 g/dL (2-4); Total Bilirubin 1.1 mg/dL (0.2-1.0); Total Protein 6.8 g/dL (6.4-8.9)
[2016-07-03 00:18] LABS: Troponin I 0.03 ng/mL (<0.04)
[2016-07-03 00:22] LABS: PCO2 Arterial 38 mmHg (35-45)
[2016-07-03 00:29] LABS: EPAP 5; FIO2 50; IPAP 10
[2016-07-03 00:35] LABS: Potassium 4.7 mmol/L (3.5-5.0)
[2016-07-03 00:49] LABS: Burr Cells 1+; Eosinophils % 2 % (0-6); Immature Granulocytes 5 % (0-9); Macrocytosis 3+; Neutrophil % 75 % (38-83); Polychromasia 1+
[2016-07-03 00:50] LABS: Add Path Review? YES; Schistocytes 1+; Target Cells 1+; Toxic Granulation 1+
[2016-07-03] MEDS ORDERED: Furosemide IV* 10 MG/ML 10 ML VIAL (100 MG) IV ONE (00:53)
[2016-07-03] MEDS ORDERED: Albuterol HFA INHALER* 8 gm MDI INH PRN (01:55)
[2016-07-03] MEDS: methylPREDNISolone SOD 40 MG* 1 ML VIAL IV SCH ×2 (03:28→14:55)
[2016-07-03 03:58] LABS: Troponin I 0.05 ng/mL (<0.04)
[2016-07-03] MEDS ORDERED: Morphine INJ* 2 MG/ML 1 ML SYRINGE ONE (04:59)
[2016-07-03] MEDS: Morphine INJ* 2 MG/ML 1 ML SYRINGE IV PRN ×3 (05:01→19:54)
[2016-07-03] MEDS ORDERED: Levothyroxine TAB* 25 MCG TAB PO SCH (06:00)
[2016-07-03] MEDS ORDERED: Heparin VIAL(*) 5000 UNITS/ML VIAL (FIVE THOUSAND) SUBCUT SCH (06:00)
--- NOTE | 2016-07-03 07:47 | RAD ---
HISTORY: Shortness of breath COMPARISONS: March 18, 2016 VIEWS:1: Single frontal portable view of the chest at 12:20 AM FINDINGS: LINES AND TUBES: A left-sided pacemaker is noted. CARDIOMEDIASTINAL SILHOUETTE: The cardiac silhouette is enlarged. Prosthetic heart valves are noted.. PLEURA: The costophrenic angles are sharp. No pleural abnormalities are noted. LUNG PARENCHYMA: There is a diffuse reticular pattern with indistinct pulmonary vessels. ABDOMEN: The upper abdomen is clear. There is no subphrenic gas. BONES AND SOFT TISSUES: The patient is status post median sternotomy. IMPRESSION: CARDIOMEGALY. PULMONARY INTERSTITIAL EDEMA.
[2016-07-03] MEDS: Heparin VIAL(*) 5000 UNITS/ML VIAL (FIVE THOUSAND) SUBCUT SCH ×3 (08:17→22:02)
[2016-07-03] MEDS: Budesonide NEB* 0.5 MG/2 ML NEB.SOLN INH SCH ×2 (08:20→20:17)
[2016-07-03] MEDS: Tiotropium CAP.INH* CAP.INH/18 MCG INH SCH (08:20)
[2016-07-03] MEDS: CMCS: Formoterol 20 MCG/2ML NEB (NF) 10 MCG/ML NEB.SOLN INH SCH ×2 (08:20→20:17)
[2016-07-03] MEDS: Levothyroxine TAB* 25 MCG TAB PO SCH (08:24)
[2016-07-03] MEDS: Diltiazem CD CAP* 240 MG PO SCH (08:24)
[2016-07-03 08:25] LABS: Total Iron Binding Capacity 333 mcg/dL (250-450); Transferrin 238 mg/dL (203-362)
[2016-07-03] MEDS: Cyanocobalamin TAB* 500 MCG PO SCH (08:27)
[2016-07-03] MEDS: Cholecalciferol TAB* 1000 UNITS PO SCH (08:27)
[2016-07-03] MEDS: Potassium Chlor TAB* 10 MEQ TAB.ER PO SCH (08:27)
[2016-07-03] MEDS: Prenatal Vitamin TAB PO SCH (08:28)
[2016-07-03] MEDS: CMC:Pravastatin (NF) 20 MG TAB PO SCH (08:28)
[2016-07-03 08:38] LABS: Albumin 4.1 g/dL (3.2-5.2); Direct Bilirubin 0.3 mg/dL (0.03-0.18); Globulin 2.3 g/dL (2-4); Total Bilirubin 1.3 mg/dL (0.2-1.0); Total Protein 6.4 g/dL (6.4-8.9)
[2016-07-03 08:50] LABS: Ferritin 460.9 ng/mL (11-307)
[2016-07-03 08:53] LABS: Folate > 20.00 ng/mL (>3.99)
[2016-07-03 08:54] LABS: Vitamin B12 > 1450 pg/mL (180-914)
[2016-07-03] MEDS ORDERED: MAGNESIUM CITRATE PO SCH (09:00)
[2016-07-03] MEDS ORDERED: Furosemide IV* 10 MG/ML VIAL (40 MG) IV SLOW PU SCH (09:00)
[2016-07-03] MEDS ORDERED: Spiriva Inhaler DEVICE* 1 EACH DEVICE INH ONE (09:00)
[2016-07-03] MEDS ORDERED: LYSINE HCL 500 MG PO SCH (09:00)
[2016-07-03] MEDS ORDERED: CALCIUM CITRATE VITAMIN D PO SCH (09:00)
[2016-07-03 09:01] LABS: Iron 87 ug/dL (50-212)
--- NOTE | 2016-07-03 09:01 | ED ---
Pascual Gabriel Janilya, scribed for Lidia Purcell MD on 07/02/16 at 2323 . Shortness of Breath - HPI Summary HPI Summary: An 86 y/o female was BIBA to [facility] presenting in extreme resp distress w/ a gradual onset of constant SOB starting sometime today. Per EMS, pt was at home when pt started having difficulty breathing for about 5 hours before EMS was called. There is PMHx of chronic asthma that is worsened when the weather is humid or rainy. Pt started feeling increasingly fatigued and anxious. En route, pt was given two 0.3 epi injections, three albuterol nebs, and one 10 mg Decadron IM. Daughter present with pt, and confirms that pt is a full code PMHx stroke, afib, CHF, Pacemaker. SHx not a tobacco user. - History of Current Complaint Hx Obtained From: Patient Onset/Duration: Gradual Onset, Lasting Hours, Still Present Timing: Constant Current Severity: Moderate Dyspnea At: Rest Aggrevating Factors: Deep Breaths Alleviating Factors: Nothing Associated Signs & Symptoms: Cough (Nonproductive), Wheezing - Risk Factors Pulmonary Embolism: Negative Cardiac: CAD Pseudomonas: Chronic Lung Disease Tuberculosis: Negative - Allergy/Home Medications Allergies/Adverse Reactions: Allergies Allergy/AdvReac Type Severity Reaction Status Date / Time No Known Allergies Allergy Verified 07/03/16 00:26 Home Medications: Home Medications Cholecalciferol [Vitamin D3] 5,000 unit PO DAILY 07/03/16 [History Confirmed ] Cyanocobalamin TAB* [Vitamin B12 TAB*] 1,000 mcg PO DAILY 07/03/16 [History Confirmed 07/03/16] Flaxseed (Linseed) [Flaxseed Oil] 1,000 mg PO DAILY 07/03/16 [History Confirmed 07/03/16] Folic Acid 800 mcg PO DAILY 07/03/16 [History Confirmed 07/03/16] Lysine HCl [l-Lysine] 500 mg PO DAILY 07/03/16 [History Confirmed 07/03/16] Tragacanth [Astragalus Root] 2 ea PO DAILY 07/03/16 [History Confirmed 07/03/16] PMH/Surg Hx/FS Hx/Imm Hx Previously Healthy: Yes Endocrine/Hematology History: Reports: Hx Thyroid Disease - hypothyroid Cardiovascular History: Reports: Hx Atrial Fibrillation, Hx Cardiac Arrest - x2 , Hx Congestive Heart Failure, Hx Hypercholesterolemia, Hx Hypertension, Hx Pacemaker/ICD, Other Cardiovascular Problems/Disorders - open heart surgery Respiratory History: Reports: Hx Asthma, Hx Chronic Obstructive Pulmonary Disease (COPD) GI History: Reports: Hx Gastrointestinal Bleed Musculoskeletal History: Reports: Hx Osteoporosis, Other Musculoskeletal History - osteoarthritis Sensory History: Reports: Hx Contacts or Glasses, Hx Hearing Aid Opthamlomology History: Reports: Hx Contacts or Glasses Psychiatric History: Reports: Hx Anxiety, Hx Depression - Surgical History Surgery Procedure, Year, and Place: open heart, unsure of year. knee surgery. Pacemaker - Immunization History Date of Tetanus Vaccine: unknown Infectious Disease History: Denies: Traveled Outside the [place] in Last 30 Days - Family History Known Family History: Negative: Cardiac Disease, Diabetes - Social History Alcohol Use: None Substance Use Type: Reports: None Smoking Status (MU): Never Smoked Tobacco Review of Systems Positive: Fatigue Cardiovascular: Negative Positive: Shortness Of Breath Positive: Anxious All Other Systems Reviewed And Are Negative: Yes Physical Exam Triage Information Reviewed: Yes Vital Signs On Initial Exam: Vital Signs (72 hours) 07/02/16 07/03/16 23:39 00:20 Temperature 97.8 F Pulse Rate 63 61 Respiratory 32 22 Rate Blood Pressure 146/35 (mmHg) O2 Sat by Pulse 99 96 Oximetry Vital Signs Reviewed: Yes Appearance: Positive: No Pain Distress, Well-Nourished, Ill-Appearing - severe resp distress, unable to speak, pursed lip breathing, BiPAP applied upon admission to ED Skin: Positive: Warm, Skin Color Reflects Adequate Perfusion, Dry Head/Face: Positive: Normal Head/Face Inspection Eyes: Positive: EOMI, Conjunctiva Clear ENT: Positive: Normal ENT inspection, Hearing grossly normal, Pharynx normal, TMs normal. Negative: Muffled/hoarse voice Neck: Positive: Supple, Nontender Respiratory/Lung Sounds: Positive: Clear to Auscultation, Breath Sounds Present , Rales - alf up chest, Unable to speak in full sentences, Other - Respiratory distress, extremis, BiPAP applied Cardiovascular: Positive: RRR - 100% paced, Pulses are Symmetrical in both Upper and Lower Extremities. Negative: Murmur, Leg Edema Left, Leg Edema Right Abdomen Description: Positive: Nontender, Soft Bowel Sounds: Positive: Present Musculoskeletal: Positive: Strength/ROM Intact. Negative: Edema Left, Edema Right Neurological: Positive: Sensory/Motor Intact, Alert, Oriented to Person Place, Time. Negative: Facial Droop, Focal Deficit @, Slurred Speech Psychiatric: Positive: Normal Diagnostics - Vital Signs Vital Signs Temp Pulse Resp BP Pulse Ox 07/03/16 01:30 60 121/38 96 07/03/16 01:00 63 29 121/38 99 07/03/16 00:30 64 24 121/66 100 07/03/16 00:26 63 22 125/34 100 07/03/16 00:20 97.8 F 61 22 146/35 96 07/03/16 00:01 60 23 142/102 100 07/03/16 00:00 60 22 100 07/02/16 23:48 60 24 100 07/02/16 23:46 146/35 07/02/16 23:39 63 32 99 - Laboratory Lab Results: Lab Results 07/02/16 07/02/16 07/02/16 Range/Units 23:25 23:25 23:25 WBC 17.5 H (3.5-10.8) 10^3/ul RBC 2.22 L (4.0-5.4) 10^6/ul Hgb 8.9 L (12.0-16.0) g/dl Hct 27 L (35-47) % MCV 124 H (80-97) fL MCH 40 H (27-31) pg MCHC 33 (31-36) g/dl RDW 24 H (10.5-15) % Plt Count 331 (150-450) 10^3/ul MPV 9 (7.4-10.4) um3 Immature Gran % (Auto) 5 (0-9) % Neut % (Auto) 72.6 (38-83) % Lymph % (Auto) 16.6 L (25-47) % Traill % (Auto) 9.1 H (1-9) % Eos % (Auto) 1.5 (0-6) % Baso % (Auto) 0.2 (0-2) % Absolute Neuts (auto) 12.7 H (1.5-7.7) 10^3/ul Absolute Lymphs (auto) 2.9 (1.0-4.8) 10^3/ul Absolute Monos (auto) 1.6 H (0-0.8) 10^3/ul Absolute Eos (auto) 0.3 (0-0.6) 10^3/ul Absolute Basos (auto) 0 (0-0.2) 10^3/ul Absolute Nucleated RBC 0.30 10^3/ul Neutrophils % 75 (38-83) % Band Neutrophils % 5 (0-8) % Lymphocytes % 11 L (25-47) % Monocytes % 7 (0-13) % Eosinophils % 2 (0-6) % Nucleated RBC % 1.7 Nucleated RBCs/100 WBC 2 H (0-0) Toxic Granulation 1+ Normal RBC Morphology Not Reportable Polychromasia 1+ Macrocytosis 3+ Target Cells 1+ Alicia Cells 1+ Elliptocytes 1+ Schistocytes 1+ Hem Pathologist Commnt Pending Patient Temperature ABG pH (7.35-7.45) ABG pCO2 (35-45) mmHg ABG pO2 (80-100) mmHg ABG HCO3 (19-31) mmol/L ABG O2 Saturation (95-98) % ABG Base Excess (-2.0-2.0) Respiration Rate O2 Delivery Device Ventilator Type Vent Mode FiO2 Inspiratory Time PEEP Pressure Support Pressure Control EPAP IPAP BiPAP Sodium 133 (133-145) mmol/L Potassium 4.7 (3.5-5.0) mmol/L Chloride 100 L (101-111) mmol/L Carbon Dioxide 25 (22-32) mmol/L Anion Gap 8 (2-11) mmol/L BUN 25 H (6-24) mg/dL Creatinine 0.88 (0.51-0.95) mg/dL Est GFR ( Amer) 78.0 (>60) Est GFR (Non-Af Amer) 60.6 (>60) BUN/Creatinine Ratio 28.4 H (8-20) Glucose 222 H (70-100) mg/dL Lactic Acid 1.5 (0.5-2.0) mmol/L Calcium 9.3 (8.6-10.3) mg/dL Total Bilirubin 1.10 H (0.2-1.0) mg/dL AST 34 (13-39) U/L ALT 15 (7-52) U/L Alkaline Phosphatase 56 (34-104) U/L Troponin I 0.03 (<0.04) ng/mL B-Natriuretic Peptide ( - 100) pg/mL Total Protein 6.8 (6.4-8.9) g/dL Albumin 4.4 (3.2-5.2) g/dL Globulin 2.4 (2-4) g/dL Albumin/Globulin Ratio 1.8 (1-3) 07/02/16 07/03/16 Range/Units 23:25 00:15 WBC (3.5-10.8) 10^3/ul RBC (4.0-5.4) 10^6/ul Hgb (12.0-16.0) g/dl Hct (35-47) % MCV (80-97) fL MCH (27-31) pg MCHC (31-36) g/dl RDW (10.5-15) % Plt Count (150-450) 10^3/ul MPV (7.4-10.4) um3 Immature Gran % (Auto) (0-9) % Neut % (Auto) (38-83) % Lymph % (Auto) (25-47) % Traill % (Auto) (1-9) % Eos % (Auto) (0-6) % Baso % (Auto) (0-2) % Absolute Neuts (auto) (1.5-7.7) 10^3/ul Absolute Lymphs (auto) (1.0-4.8) 10^3/ul Absolute Monos (auto) (0-0.8) 10^3/ul Absolute Eos (auto) (0-0.6) 10^3/ul Absolute Basos (auto) (0-0.2) 10^3/ul Absolute Nucleated RBC 10^3/ul Neutrophils % (38-83) % Band Neutrophils % (0-8) % Lymphocytes % (25-47) % Monocytes % (0-13) % Eosinophils % (0-6) % Nucleated RBC % Nucleated RBCs/100 WBC (0-0) Toxic Granulation Normal RBC Morphology Polychromasia Macrocytosis Target Cells Warren Cells Elliptocytes Schistocytes Hem Pathologist Commnt Patient Temperature Not Reportable ABG pH 7.38 (7.35-7.45) ABG pCO2 38 (35-45) mmHg ABG pO2 179 H (80-100) mmHg ABG HCO3 23.1 (19-31) mmol/L ABG O2 Saturation 100.1 H (95-98) % ABG Base Excess -2.4 L (-2.0-2.0) Respiration Rate Not Reportable O2 Delivery Device V60 Ventilator Type Not Reportable Vent Mode Not Reportable FiO2 50 Inspiratory Time Not Reportable PEEP Not Reportable Pressure Support Not Reportable Pressure Control Not Reportable EPAP 5 IPAP 10 BiPAP Not Reportable Sodium (133-145) mmol/L Potassium (3.5-5.0) mmol/L Chloride (101-111) mmol/L Carbon Dioxide (22-32) mmol/L Anion Gap (2-11) mmol/L BUN (6-24) mg/dL Creatinine (0.51-0.95) mg/dL Est GFR ( Amer) (>60) Est GFR (Non-Af Amer) (>60) BUN/Creatinine Ratio (8-20) Glucose (70-100) mg/dL Lactic Acid (0.5-2.0) mmol/L Calcium (8.6-10.3) mg/dL Total Bilirubin (0.2-1.0) mg/dL AST (13-39) U/L ALT (7-52) U/L Alkaline Phosphatase (34-104) U/L Troponin I (<0.04) ng/mL B-Natriuretic Peptide 643 H ( - 100) pg/mL Total Protein (6.4-8.9) g/dL Albumin (3.2-5.2) g/dL Globulin (2-4) g/dL Albumin/Globulin Ratio (1-3) Result Diagrams: 07/02/16 23:25 07/02/16 23:25 Lab Statement: Any lab studies that have been ordered have been reviewed, and results considered in the medical decision making process. - Radiology CXR Xray Interpretation: Positive (See Comments) - Pulmonary edema Radiology Interpretation Completed By: ED Physician - Dr. Purcell - EKG 2318 Cardiac Rate: NL - 60 bpm EKG Rhythm: Sinus Rhythm EKG Interpretation: Paced Re-Evaluation - Re-Evaluation First Eval Re-Evaluation Time: 23:27 Change: Unchanged Comment: Received a list of current medication and PMHx from daughter. Second Eval Re-Evaluation Time: 12:59 Comment: Discussed EKG and CXR results as well as admission to hospital. Course/Dx - Course Course Of Treatment: BiPAP applied and decreased resp distress. Pt remains a full code. Attempt to DC BiPAP not tolerated. Admit hospitalist. - Diagnoses Differential Diagnosis/HQI/PQRI: Positive: Asthma, Bronchitis, CHF, COPD Exacerbation, SC, Pneumonia Provider Diagnoses: CHF exacerbation, COPD (chronic obstructive pulmonary disease) - Physician Notifications Discussed Care of Patient With: Dr. Summers (hospitalist) at 1255: discussed pt' s PMHx, cc, Xray, EKG, and current condition. Dr. Summers agrees to accept pt into hospital. Discharge - Discharge Plan Condition: Stable Disposition: ADMITTED TO [facility] documentation as recorded by the Pascual lobo Janilya accurately reflects the service I personally performed and the decisions made by Binh ross Barbara J, MD.
--- NOTE | 2016-07-03 12:48 | HP ---
HISTORY AND PHYSICAL: DATE OF ADMISSION: 07/03/16 CHIEF COMPLAINT: Shortness of breath. HISTORY OF PRESENT ILLNESS: The patient is an 86-year-old woman, who says she went to dinner tonight, feeling in her usual state of health and on the way home , she started not to feel well. She became short of breath and she took 2 puffs of albuterol. By the time she got home, she did not feel much better, so she used her nebulizer as well. She has been increasingly stressed lately as her daughter notes. She administered a smooth soup and a small enchilada for dinner. She had no chest pain, a little cough. She did not think she was wheezing. In the ED, the patient was evaluated and it was unclear she had an asthma exacerbation or CHF exacerbation. Interestingly, EMS did give her 2 shots of epi thinking it was asthma exacerbation. It is unclear of the benefit of this treatment. The patient is currently on BiPAP. PAST MEDICAL HISTORY: Significant for atrial fibrillation; hypertension; COPD; cardiac arrest x2; tracheostomy with removal in the past; PEG tube with removal in the past; osteoarthritis; osteoporosis; dyslipidemia; TIA; GI bleed, while on Coumadin in 2011; anxiety with depression; hyperlipidemia. PAST SURGICAL HISTORY: 1. Aortic valve replacement, bioprosthetic valve, and tricuspid repair at [facility] in 2010. 2. Pacemaker placement in 2011. 3. Bilateral total knee replacement. CURRENT MEDICATIONS: 1. Astragalus root 2 each daily. 2. Lysine 500 mg daily. 3. Torsemide 10 mg Wednesday, Wednesday, Wednesday. 4. Spiriva 18 mcg in the morning. 5. Pravastatin 10 mg daily. 6. Potassium chloride 10 mEq daily. 7. Multivitamin 1 tablet daily. 8. Mag citrate 200 mg twice daily. 9. Synthroid 25 mcg daily. 10. Glucosamine chondroitin 1 chewable daily. 11. Formoterol 20 mcg inhaled twice daily. 12. Folic acid 800 mcg daily. 13. Flaxseed 1000 mg daily. 14. Diltiazem CD 240 mg daily. 15. Cholecalciferol 5000 units daily. 16. Calcium citrate and vitamin D 1 tablet daily. 17. Budesonide 0.5 mg twice daily. 18. Albuterol sulfate 2 puffs every 4 hours as needed. 19. Vitamin B12 1000 mcg daily. ALLERGIES: No known drug allergies. FAMILY HISTORY: Parents in their 50s while in [place], but she has no other history. SOCIAL HISTORY: No tobacco, alcohol, or recreational drug use. She is . Her is a [employer] professor. He and his daughter are her healthcare proxies. His name is Dariel Hernandez, and Patricio Hernandez, daughter, and she is also healthcare proxy. REVIEW OF SYSTEMS: A 14-point review of systems was completed with the patient. All pertinent positives and negatives are in the history of present illness, otherwise it is negative. PHYSICAL EXAMINATION GENERAL: A pleasant woman lying in bed, in no acute distress. VITAL SIGNS: Heart rate 61 beats per minute, respiratory rate 17 breaths per minute, blood pressure 130/44, temperature is 98.8 degrees. HEENT: Normocephalic and atraumatic. Pupils are equal, round, and reactive to light. Moist mucous membranes. NECK: Supple. No JVD, bruits, palpable thyroid, or lymphadenopathy. CHEST: She has got bilateral wheezing. CARDIOVASCULAR: S1, S2 appreciated. ABDOMEN: Positive bowel sounds in all 4 quadrants. Soft, nontender, and nondistended. EXTREMITIES: No cyanosis, clubbing, or edema. +2 peripheral pulses bilaterally. NEURO: Alert and oriented x3. Moves all extremities. SKIN: No rashes or abnormalities. DIAGNOSTIC STUDIES/LAB DATA: White count 17.5, hemoglobin 8.9, hematocrit 27, platelets 331. Sodium 133, potassium 4.7, chloride 100, CO2 25, BUN 25, creatinine 0.88, Troponin is 0.03. BNP is 643. Chest x-ray shows bilateral fluffy infiltrates consistent with CHF. EKG shows AFib/flutter with V paced rhythm. ASSESSMENT AND PLAN: 1. Shortness of breath. It certainly looks like a congestive heart failure exacerbation based on the x-ray and BNP elevation which is the highest it has been. So, I will try to be more aggressive in her diuresis. Her daughter notes that her torsemide was actually decreased 6 months ago to 10 mg 3 times a day. It is unclear why but I suspect it is probably from somewhat worsening of renal function at that time. She will get 40 mg IV Lasix a day. Strict I's and O's, daily weights. She had an echocardiogram this past March. I will hold off on repeating it. She did have an ejection fraction of greater than 65% at that time. I did not discuss whether or not there was evidence of diastolic dysfunction, although there was left ventricular hypertrophy. 2. Asthma exacerbation. This again is a possibility or combined manifestation. I will place her on Solu-Medrol 40 IV q.12, continue her inhalers. 3. Hypothyroidism. Stable. Continue Synthroid. 4. FEN. Low-sodium diet. 5. DVT prophylaxis. Heparin subcu. 6. The patient is a full code. TIME SPENT: Over 75 minutes was spent on this H and P; more than 40 minutes of which was spent in direct [id number] contact with the patient in evaluation, physical exam, counseling, and coordination of care. CC: Dr. Gudelia Holloway* [id number]/CPS #: [id number] MTDStanley
--- NOTE | 2016-07-03 12:56 | ECHO ---
Patient: KYUNG SAUCEDO [facility] Rec#: [id number] : 1930 Date: 07/03/2016 Age: 86y Height: 142.24 cm / 56.0 in Weight: 38.1 kg / 84.0 lbs Sex: F BSA: 1.23 Room#: [facility]7 Admit Date#: 07/03/2016 Type: Inpatient Referring: Pop Martini DO Reading: Pop Martini DO Cake Knocker: LENA Cake Knocker: [place] Cake Knocker: Soheila Amaya RDCS CC: Gudelia Holloway MD Transthoracic Echocardiogram Indication: CHF BP: 130/62 HR: 72 Rhythm: Paced Findings History: S/p pacer, asthma, CVA, a-fib, CHF, cardiac arrest x2, HLD, HTN, COPD, bioprosthetic AVR. Technical Comments: The study quality is fair. The study is technically limited due to patient body habitus. The study is technically limited due to the patient's history of COPD. Left Ventricle: The left ventricular chamber size is normal. Mild concentric left ventricular hypertrophy is observed. Global left ventricular wall motion and contractility are within normal limits. The left ventricle appears hyperdynamic. The estimated ejection fraction is greater than 65%. The assessment of diastolic function is non-diagnostic. Left Atrium: The left atrium is severely dilated. Right Ventricle: The right ventricular chamber size and systolic function are within normal limits. A pacemaker wire is visualized in the right ventricle. Right Atrium: The right atrial cavity size is severely dilated. A pacemaker wire is visualized in the right atrium. Aortic Valve: The aortic valve is trileaflet. The aortic valve leaflets are mildly thickened. There is a trace of aortic regurgitation. There is no evidence of aortic stenosis. The mean gradient of the aortic valve is 21.2 mmHg. Peak velocity 3.37 m/s, acceleration time 94 msec. Previous 03/2016 TTE with peak velocity 2.3 m/s, mean gradient 12 mmHg The highest aortic valve velocity was obtained with the standard probe from the A5C view. A bio-prosthetic aortic valve is present. Mitral Valve: There is mitral annular calcification. The mitral valve leaflets are moderately thickened. There is mild mitral valve prolapse. There is moderate to severe mitral regurgitation. that is eccentric and posterior direct. It may be underestimated in severity. There is some degree of mitral valve prolapse. Cannot exclude severe primary MR. There is no evidence of mitral stenosis. Tricuspid Valve: There is tricuspid annular calcification. The tricuspid valve leaflets are moderately thickened. There is moderate to severe tricuspid regurgitation. There is evidence of severe pulmonary hypertension. There is no tricuspid stenosis. Pulmonic Valve: The pulmonic valve appears normal. There is mild pulmonic regurgitation. There is no pulmonic stenosis. Pericardium: There is no significant pericardial effusion. Aorta: There is no dilatation of the ascending aorta. The aortic arch is not well visualized. There is no dilation of the aortic root. Pulmonary Artery: The main pulmonary artery appears normal. Venous: The inferior vena cava appears normal in size. There is less than 50% respiratory change in the inferior vena cava dimension. Conclusions The left ventricular chamber size is normal. Mild concentric left ventricular hypertrophy is observed. The left ventricle appears hyperdynamic. The estimated ejection fraction is greater than 65%. The left atrium is very severely dilated. The right ventricular chamber size and systolic function are within normal limits. A pacemaker wire is visualized in the right ventricle. The right atrial cavity size is severely dilated. There is moderate to severe tricuspid regurgitation. There is evidence of severe pulmonary hypertension. Moderate mitral annulus calcification The aortic bioprosthesis peak velocity and gradient are higher than prior. Visualized leaflet portions appear to open adequately although cannot exlude some degree of obstruction There is moderate to severe mitral regurgitation that is eccentric and posterior directed It may be underestimated in severity. There is some degree of mitral valve prolapse. Cannot exclude severe primary MR. Compared to prior study from 02/2016, tricuspid regurgitation and pulmonary hypertension are worse. Again cannot exclude severe primary MR, would need CRUZ to clarify. Measurements Name Value Normal Range RVIDd (AP) 2D 1.6 cm (0.9 - 2.6) RVDdMajor (2D) 2.4 cm (2.2 - 4.4) RAd ISD 4CH 5.9 cm (3.4 - 4.9) RA (A4C)W 4.2 cm (2.9 - 4.6) IVSd (2D) 1.1 cm (0.6 - 1) LVPWd (2D) 1.2 cm (0.6 - 1) LVIDd (2D) 3.9 cm (3.6 - 5.4) LVIDs (2D) 1.7 cm - LV FS (2D) 56 % (25 - 45) Aortic Annulus 1.8 cm (1.4 - 2.6) Ao root diameter (2D) 2.4 cm (2.1 - 3.5) Ascending Ao 3.4 cm (2.1 - 3.4) LA dimension (AP) 2D 5.1 cm (2.3 - 3.8) LAd ISD 4CH 5.7 cm (2.9 - 5.3) LA ISD 4CH W 5.2 cm (2.5 - 4.5) Name Value Normal Range LA ESV SP 4CH (A/L) 125 ml - LA ESV SP 2CH (A/L) 118 ml - LA ESV BP (A/L) index 101 ml/m2 - LA ESV SP 4CH (MOD) 117 ml - LA ESV SP 2CH (MOD) 115 ml - Name Value Normal Range MV E-wave Vmax 1.3 m/sec - MV deceleration time 158 msec - LV septal e' Vmax 0.04 m/sec - LV lateral e' Vmax 0.05 m/sec - LV E:e' septal ratio 32.5 ratio - LV E:e' lateral ratio 26 ratio - Name Value Normal Range AV Vmax 3.37 m/sec - AV VTI 74 cm - AV peak gradient 45.43 mmHg - AV mean gradient 21.2 mmHg - LVOT diameter 1.8 cm - LVOT Vmax 1.22 m/sec - LVOT VTI 29.34 cm - LVOT peak gradient 5.99 mmHg - LVOT mean gradient 3.83 mmHg - DOI (VTI) 0.4 ratio - KIMBERLEY (continuity Vmax) 0.92 cm2 - KIMBERLEY (continuity VTI) 1.01 cm2 - Name Value Normal Range MV Vmax 1.3 m/sec - MV VTI 32.87 cm - MV peak gradient 6.76 mmHg - MV mean gradient 2.15 mmHg - MV PHT 67 msec - MR Vmax 6.36 m/sec - MR VTI 165 cm - MR volume (PISA) 36.3 ml - MR flow (PISA) 139.93 ml/sec - MR ERO 0.22 cm2 - MR PISA radius 0.71 cm - MR alias Vmax 44.2 cm/sec - MVA (PHT) 3.28 cm2 - MVA (continuity VTI) 2.27 cm2 - Name Value Normal Range TR Vmax 3.9 m/sec - TR peak gradient 61 mmHg - RAP 8 mmHg - RVSP 68.84 mmHg - IVC diameter 1.6 cm - Name Value Normal Range PV Vmax 1.1 m/sec - PV peak gradient 4.84 mmHg - TX end-diastolic Vmax 1.5 m/sec - PA end-diastolic [id number] mmHg -
--- NOTE | 2016-07-03 13:33 | PN ---
Progress Note - Progress Note Note: see consult note
--- NOTE | 2016-07-03 13:35 | CONSULT ---
Subjective Date of Service: 07/03/16 Interval History: PMD: Dr. Holloway Principal Military Analyst: Dr. Oakley DATE OF ADMISSION: 07/03/16 CHIEF COMPLAINT: Shortness of breath. Reason for consult: CHF HISTORY OF PRESENT ILLNESS: The patient is an 86-year-old woman with a history of AVR, pacemaker, CHF who was admitted with dyspnea not relieved with inhalers subsequently found with CHF exacerbation. She was admitted 3 months ago with heart failure as well. She has received IV diuretics and is on high flow oxygen. She is reportedly improved. She can speak in very short sentences but appears tachypneic with increased work of breathing and is on high flow oxygen. There was some thought about intubation but from conversation with her and family it appears she will be DNI. There has been no cough, sputum, or fevers. PAST MEDICAL HISTORY: Significant for atrial fibrillation; hypertension; COPD; cardiac arrest x2; tracheostomy with removal in the past; PEG tube with removal in the past; osteoarthritis; osteoporosis; dyslipidemia; TIA; GI bleed, while on Coumadin in 2011; anxiety with depression; hyperlipidemia. PAST SURGICAL HISTORY: 1. Aortic valve replacement, bioprosthetic valve, and tricuspid repair at [facility] in 2010. 2. Pacemaker placement in 2011. 3. Bilateral total knee replacement. ALLERGIES: No known drug allergies. FAMILY HISTORY: Parents in their 50s while in [place], but she has no other history. SOCIAL HISTORY: No tobacco, alcohol, or recreational drug use. She is . Her is a [employer] professor. He and his daughter are her healthcare proxies. His name is Dariel Hernandez, and Patricio Hernandez, daughter, and she is also healthcare prox Medications Active Medications: Albuterol (Ventolin Hfa Inhaler*) 2 puff INH Q4H PRN PRN Reason: SOB/WHEEZING Budesonide (Pulmicort Neb*) 0.5 mg INH BID [facility] Last Admin: 07/03/16 08:20 Dose: 0.5 mg Cholecalciferol (Vitamin D Tab*) 5,000 units PO DAILY [facility] Last Admin: 07/03/16 08:27 Dose: Not Given Cyanocobalamin (Vitamin B12 Tab*) 1,000 mcg PO DAILY [facility] Last Admin: 07/03/16 08:27 Dose: Not Given Diltiazem HCl (Cardizem Cd Cap*) 240 mg PO DAILY [facility] Last Admin: 07/03/16 08:24 Dose: 240 mg Formoterol Fumarate (Perforomist Neb.Soln*(Nf)) 20 mcg INH BID [facility] Last Admin: 07/03/16 08:20 Dose: 20 mcg Furosemide (Lasix Iv*) 40 mg IV SLOW PU DAILY [facility] Last Admin: 07/03/16 08:17 Dose: 40 mg Heparin Sodium (Porcine) (Heparin Vial(*)) 5,000 units SUBCUT Q8HR [facility] Last Admin: 07/03/16 08:17 Dose: 5,000 units Levothyroxine Sodium (Synthroid Tab*) 25 mcg PO 0600 [facility] Last Admin: 07/03/16 08:24 Dose: 25 mcg Methylprednisolone Sodium Succinate (Solu-Medrol*) 40 mg IV Q12H [facility] Last Admin: 07/03/16 03:28 Dose: 40 mg Morphine Sulfate (Morphine Inj (Syringe)*) 2 mg IV Q4H PRN PRN Reason: PAIN - MILD Last Admin: 07/03/16 05:01 Dose: 2 mg Multivitamins ( Vitamin Tab*) 1 tab PO DAILY [facility] Last Admin: 07/03/16 08:28 Dose: Not Given Potassium Chloride (Klor Con Er Tab*) 10 meq PO DAILY [facility] Last Admin: 07/03/16 08:27 Dose: Not Given Pravastatin Sodium (Pravachol (Nf)) 10 mg PO DAILY [facility] PRN Reason: Protocol Last Admin: 07/03/16 08:28 Dose: Not Given Tiotropium [place] (Spiriva Cap.Inh*) 1 cap INH DAILY [facility] Last Admin: 07/03/16 08:20 Dose: 1 cap Home Medications: Levothyroxine Sodium [Synthroid] 25 mcg PO DAILY 09/15/12 [History Confirmed ] Magnesium Citrate (mg Suppleme [Magnesium Citrate] 200 mg PO BID 09/15/12 [ History Confirmed 07/03/16] Multiple Vitamin [One Daily] 1 tab PO DAILY 09/15/12 [History Confirmed 07/03/16 ] Potassium Chloride Microencaps [Potassium Chloride ER] 10 meq PO DAILY 09/15/12 [History Confirmed 07/03/16] Pravastatin (NF) [Pravachol (NF)] 10 mg PO DAILY 09/15/12 [History Confirmed ] Torsemide 10 mg PO MOWEFR 09/15/12 [History Confirmed 07/03/16] Calcium Citrate-Vitamin D 1 tab PO DAILY 09/26/13 [History Confirmed 07/03/16] Diltiazem HCl Extended Release [Diltiazem HCl ER] 240 mg PO DAILY 09/26/13 [ History Confirmed 07/03/16] Tiotropium [place] Monohydrate [Spiriva Handihaler] 18 mcg IN DAILY 09/26/13 [ History Confirmed 07/03/16] Albuterol Sulfate [Proair Hfa] 2 puff INH Q4H PRN 03/18/16 [History Confirmed ] Budesonide NEB* [Pulmicort Neb*] 0.5 mg INH BID 03/19/16 [History Confirmed ] Formoterol 20 MCG/2ML NEB (NF) [Perforomist NEB.SOLN*(NF)] 20 mcg INH BID [History Confirmed 07/03/16] Glucosamine-Chondroitin [Glucosamine/Chondroitin 750-600 mg] 1 chw PO DAILY 07/29 [History Confirmed 07/03/16] Cholecalciferol [Vitamin D3] 5,000 unit PO DAILY 07/03/16 [History Confirmed ] Cyanocobalamin TAB* [Vitamin B12 TAB*] 1,000 mcg PO DAILY 07/03/16 [History Confirmed 07/03/16] Flaxseed (Linseed) [Flaxseed Oil] 1,000 mg PO DAILY 07/03/16 [History Confirmed 07/03/16] Folic Acid 800 mcg PO DAILY 07/03/16 [History Confirmed 07/03/16] Lysine HCl [l-Lysine] 500 mg PO DAILY 07/03/16 [History Confirmed 07/03/16] Tragacanth [Astragalus Root] 2 ea PO DAILY 07/03/16 [History Confirmed 07/03/16] Review of Systems - Measurements Intake and Output: Intake and Output Last 24 Hours 07/01/16 07/02/16 07/03/16 07/04/16 06:59 06:59 06:59 06:59 Intake Total 100 200 Output Total 300 400 Balance -200 -200 Weight 84 lb 6.4 oz Intake: Oral 100 200 Output: Urine 300 400 - Review of Systems Constitutional Symptoms: Positive: Weakness, Fatigue Negative: Weight Gain, Weight Loss, Fever, Night Sweats, Unexplained Falls Dermatology: Negative: Skin Lesions, Cancer, Skin Lumps HEENT: Negative: Change in Hearing, Vertigo, Dental Problems Eyes: Negative: Change in Vision, Double Vision, Eye Pain Thyroid: Negative: Tremor, Frequent Defecation, Constipation, Palpitations, Primary Hypothyroidism, Primary Hyperthyroidism, Weight Loss, Weight Gain, Change in Menstration Pulmonary: Negative: Cough, Sputum, Hemoptysis, Wheezing, Respiratory Distress, Shortness of Breath, COPD, Asthma, Exercise Intolerance, Home Oxygen, Other Cardiology: Positive: Shortness of Breath, Orthopnea Negative: Chest Pain, Palpitations, Swelling of Ankles, Peripheral Vascular Dis, Edema, Faintness, Syncope, Claudication Gastroenterology: Negative: Abdominal Pain, Nausea, Vomiting, Anorexia, Constipation, Diarrhea Genital - Urinary: Negative: Dysuria, Hematuria, Polyuria Musculoskeletal: Negative: Joint Pain, Joint Stiffness, Arthritis, Osteoporosis, Low Back Pain , Sciatica Endocrinology: Positive: Pituitary Disease Negative: Obesity, Diabetes, Polydipsia, Polyuria Hematologic/Lymphatic: Positive: Anemia, Use of Anticoagulant Negative: Hx Leukemia, Hx Lymphoma, Use of Antiplatelet Drugs Neurology: Positive: Normal Negative: Headaches, Migraines, Change in Vision, Diplopia, Dizziness, Change in Balancing, Change in Coordination, Change in Memory, Change in Speech , Change in Sphincter Function, Change in Walking, Numbness\Paresthesiae, Unexplained Weakness Psychiatry: Negative: Depressed Mood, Adhedonia, Unusual Anxiety, Suicidal Ideation, Hypomania, Eating Disorders Allergic/Immunologic: Negative: Hx Anaphylaxis, Hx Angioedema, Hx HIV, Immunocompromise Review of Systems Statement: All other review of systems negative, unless stated above. Objective Vital Signs: Temp Pulse Resp BP Pulse Ox 97.2 F 59 12 120/41 100 07/03/16 08:00 07/03/16 13:00 07/03/16 13:17 07/03/16 13:00 07/03/16 13:00 Appearance: frail, elderly, cachectic, ill appearing Ears/Nose/Mouth/Throat: Clear Oropharnyx Neck: - - + severe JVD Respiratory: - - tachypnea with increased work of breathing, b/l crackles Cardiovascular: No Edema, - - irregularly irregular, 3/6 murmur difficult to further characterize due to fast, deep breathing Abdominal: NL Sounds; No Tenderness; No Distention Extremities: No Clubbing, Cyanosis Skin: No Rash or Ulcers Neurological: Alert and Oriented x 3 Laboratory Results: 07/02/16 23:25 07/02/16 23:25 Total Bilirubin 1.30 mg/dL (0.2-1.0) H 07/03/16 03:20 Direct Bilirubin 0.30 mg/dL (0.03-0.18) H 07/03/16 03:20 Indirect Bilirubin 1.0 mg/dL (0.3-1.0) 07/03/16 03:20 AST 21 U/L (13-39) 07/03/16 03:20 ALT 13 U/L (7-52) 07/03/16 03:20 Alkaline Phosphatase 53 U/L (34-104) 07/03/16 03:20 B-Natriuretic Peptide 643 pg/mL (-100) H 07/02/16 23:25 Total Protein 6.4 g/dL (6.4-8.9) 07/03/16 03:20 Albumin 4.1 g/dL (3.2-5.2) 07/03/16 03:20 Globulin 2.3 g/dL (2-4) 07/03/16 03:20 Albumin/Globulin Ratio 1.8 (1-3) 07/03/16 03:20 07/02/16 07/03/16 07/03/16 23:25 03:20 08:35 Troponin I 0.03 0.05 H* 0.04 H* Diagnostic Imaging: cxr this admission: B/l pulmonary edema EKG Data: EKG this admission: AFib, demand V-paced Assessment/Plan I reviewed her echocardiogram today in detail. It is not significantly different from 02/2016 except there is now worsening TR and pulmonary hypertension. Her LVEF is hyperdynamic and CXR shows b/l pulmonary edema. There appears to be moderate to severe eccentric MR but I think we may be missing eccentric severe primary mitral regurgitation because of shadowing from the aortic valve bioprosthesis and mitral annulus calcification. This would fit the clinical scenario. The only way to be certain would be to do a CRUZ. She might then see if she is a candidate for a mitral valve clip. I discussed this with her, daughter, and son in law. They do not seem to be interested in pursuing this at this time. She may require more IV diuretics and her creatinine may rise significantly with enough diuresis to make her comfortable. Will follow Thank you for allowing me to participate in the cardiovascular care of this patient. Please do not hesitate to contact me with questions or concerns.
--- NOTE | 2016-07-03 13:36 | PN ---
Subjective Date of Service: 07/03/16 Interval History: HOSPITALIST PROGRESS NOTE Patient seen and examined at bedside. When I saw her, she had just been released from BiPAP and was in respiratory distress, with accessory muscle use, could not provide much history. As per daughter, patient was doing well after her admission in March, following a low salt diet as prescribed, but yesterday was her 65th anniversary and she went to dinner at [employer]. Her symptoms started shortly after, not relieved by her inhalers. Family History: Unchanged from Admission Social History: Unchanged from Admission Past Medical History: Unchanged from Admission Objective Active Medications: Albuterol (Ventolin Hfa Inhaler*) 2 puff INH Q4H PRN PRN Reason: SOB/WHEEZING Budesonide (Pulmicort Neb*) 0.5 mg INH BID [facility] Last Admin: 07/03/16 08:20 Dose: 0.5 mg Cholecalciferol (Vitamin D Tab*) 5,000 units PO DAILY [facility] Last Admin: 07/03/16 08:27 Dose: Not Given Cyanocobalamin (Vitamin B12 Tab*) 1,000 mcg PO DAILY [facility] Last Admin: 07/03/16 08:27 Dose: Not Given Diltiazem HCl (Cardizem Cd Cap*) 240 mg PO DAILY [facility] Last Admin: 07/03/16 08:24 Dose: 240 mg Formoterol Fumarate (Perforomist Neb.Soln*(Nf)) 20 mcg INH BID [facility] Last Admin: 07/03/16 08:20 Dose: 20 mcg Furosemide (Lasix Iv*) 40 mg IV SLOW PU DAILY [facility] Last Admin: 07/03/16 08:17 Dose: 40 mg Heparin Sodium (Porcine) (Heparin Vial(*)) 5,000 units SUBCUT Q8HR [facility] Last Admin: 07/03/16 08:17 Dose: 5,000 units Levothyroxine Sodium (Synthroid Tab*) 25 mcg PO 0600 [facility] Last Admin: 07/03/16 08:24 Dose: 25 mcg Methylprednisolone Sodium Succinate (Solu-Medrol*) 40 mg IV Q12H [facility] Last Admin: 07/03/16 03:28 Dose: 40 mg Morphine Sulfate (Morphine Inj (Syringe)*) 2 mg IV Q4H PRN PRN Reason: PAIN - MILD Last Admin: 07/03/16 05:01 Dose: 2 mg Multivitamins ( Vitamin Tab*) 1 tab PO DAILY [facility] Last Admin: 07/03/16 08:28 Dose: Not Given Potassium Chloride (Klor Con Er Tab*) 10 meq PO DAILY [facility] Last Admin: 07/03/16 08:27 Dose: Not Given Pravastatin Sodium (Pravachol (Nf)) 10 mg PO DAILY [facility] PRN Reason: Protocol Last Admin: 07/03/16 08:28 Dose: Not Given Tiotropium [place] (Spiriva Cap.Inh*) 1 cap INH DAILY [facility] Last Admin: 07/03/16 08:20 Dose: 1 cap Vital Signs 07/03/16 07/03/16 07/03/16 11:00 11:49 12:00 Temperature 97.8 F Pulse Rate 59 59 Respiratory 17 15 20 Rate Blood Pressure 137/48 122/59 (mmHg) O2 Sat by Pulse 100 100 Oximetry Oxygen Devices in Use Now: High Flow Nasal Cannula Appearance: Elderly frail lady sitting up in bed in respiratory distress, using accessory muscles. Eyes: No Scleral Icterus Ears/Nose/Mouth/Throat: Mucous Membranes Moist Neck: Trachea Midline Respiratory: Symmetrical Chest Expansion and Respiratory Effort, - - BS+ bilaterally with bilateral crackles Cardiovascular: RRR - Normal S1 and S2, tachycardic, +SM Abdominal: NL Sounds; No Tenderness; No Distention Extremities: No Edema Neurological: Alert and Oriented x 3, NL Muscle Strength and Tone Lines/Tubes/Other Access: Clean, Dry and Intact Peripheral IV Result Diagrams: 07/02/16 23:25 07/02/16 23:25 Assess/Plan/Problems-Billing Assessment: Mrs. Hernandez is a 86yo F with PMH of Afib, HTN, diastolic CHF, s/p AVR, s/p pacer , MDS, COPD, cardiac arrest x 2, h/o trach/PEG, HLD, TIA, GI bleed, anxiety, depression, who presents with acute hypoxemic respiratory failure secondary to acute CHF exacerbation. - Patient Problems (1) Acute hypoxemic respiratory failure Comment: - Secondary to CHF exacerbation. - She could not tolerate Vapotherm and was placed back on BiPAP. - D/w daughter at bedside - patient is full code and would agree with intubation if required. - Critical care consult requested with Dr. Vasquez. (2) Acute diastolic CHF (congestive heart failure) Comment: - Secondary to dietary non-compliance. - Continue diuresis. - Check echocardiogram. - Cardiology consult requested. (3) COPD (chronic obstructive pulmonary disease) Comment: - Continue steroids and bronchodilators. (4) MDS (myelodysplastic syndrome) Comment: - Hb is below baseline and she has no signs of bleeding at this time. (5) DVT prophylaxis Comment: - Heparin. (6) Full code status Status and Disposition: Inpatient. Condition is guarded.
[2016-07-03] MEDS: Furosemide IV* 10 MG/ML VIAL (40 MG) IV SLOW PU SCH (16:04)
--- NOTE | 2016-07-03 16:14 | CONSULT ---
Consult Consult: CRITICAL CARE MEDICINE DATE: 07/03/16 TIME: 1200 REFERRING PROVIDER: Pia REASON/CHIEF COMPLAINT: sob HISTORY OF PRESENT ILLNESS: 86 F with multiple medical ailments presenting with acute on chronic systolic hf and acute hypoxic resp failure. Wore bipap overnight but was unable to come off easily this and concern for potentials for intubation. ICU consulted. REVIEW OF SYSTEMS: As per HPI and H&P reviewed PAST MEDICAL HISTORY: As per HPI. prosthetic AVR, afib, cardiac arrests, trach/ peg in past with reversal MEDICATIONS: Reviewed. ALLERGIES: NKDA SOCIAL HISTORY: Reviewed. . no tob. FAMILY HISTORY: Noncontributory at present. PHYSICAL EXAM: thin, frail Vital Signs: Reviewed. Neurologic: awake, communicating HEENT: anicteric, mm dry Cardiovascular: prominent sternotomy scar. 3/6 patti at apex Respiratory: rales bl, poor excursion Abdomen: soft, nt Extremities: warm, no edema Access: piv LABS: Reviewed. IMAGING: Reviewed. pulm edema MEDICATIONS: Reviewed. ASSESSMENT: 86F Acute hypoxic resp failure Acute on chronic systolic heart failure secondary to mitral valve regurg ?copd. appears to be more restrictive then obstructive PLAN: Perfusing ok. vol status intravascular up a little, but interstial compartment overloaded. Much of this seems more secondary to mitral valve disease, as she is not that overloaded, she her colloid pressures are stable enough, and her hydrostatic pressures did not seem to be too overt, nor does she show any real signs of copd. Now, she has component of tessy and should at least be on O2 at night and avoid worsening her degree of pulm htn. Can remain on HFO2 today with intermittent bipap needs and likely bipap tonight. Would want to avoid intubation, as one, this is unlikely to help her cardiopulm state but would certainly deprive her of her autonomy. She is tolerating hfo2 this am and if she can mobilize fluid as able to find appropriate preload and afterload balance with her degree of MR, we may be able to keep what little reserve she has going. Afterload reduction at this point not going to benefit her and too little preload may lead to worsening R heart failure. Explained this to her and her family at bedside. They expressed understanding and [facility] as [facility]. Soft diet today. supportive care and give her some time. d/w hopsitalists, cards , & pulm. Supportive and preventative care as ordered. SUP: po VTE prophylaxis: heparin Disposition: ICU will follow Code Status: Full presently Critical Care Time: 45min Niko Vasquez DO
[2016-07-03] MEDS: LORazepam TAB(*) 0.5 MG PO PRN (22:05)
[2016-07-04] MEDS: Heparin VIAL(*) 5000 UNITS/ML VIAL (FIVE THOUSAND) SUBCUT SCH ×3 (05:31→20:45)
[2016-07-04] MEDS: Levothyroxine TAB* 25 MCG TAB PO SCH (05:31)
[2016-07-04 06:50] LABS: Hematocrit 23 % (35-47); Hemoglobin 7.6 g/dl (12.0-16.0); Mean Corpuscular HGB Conc 33 g/dl (31-36); Mean Corpuscular Hemoglobin 41 pg (27-31); Mean Corpuscular Volume 122 fL (80-97); Mean Platelet Volume 9 um3 (7.4-10.4); Red Blood Count 1.88 10^6/ul (4.0-5.4); Red Cell Distribution Width 25 % (10.5-15); White Blood Count 3.8 10^3/ul (3.5-10.8)
[2016-07-04 06:51] LABS: Calcium 8.4 mg/dL (8.6-10.3); Comments Flag Yes; EGFR African American 67.3 (>60); EGFR Non-African American 52.3 (>60); Magnesium 2.2 mg/dL (1.9-2.7); Phosphorus 4.6 mg/dL (2.5-5.0); Potassium 4.8 mmol/L (3.5-5.0)
[2016-07-04] MEDS: CMCS: Formoterol 20 MCG/2ML NEB (NF) 10 MCG/ML NEB.SOLN INH SCH ×2 (08:24→21:04)
[2016-07-04] MEDS: Budesonide NEB* 0.5 MG/2 ML NEB.SOLN INH SCH ×2 (08:24→21:04)
[2016-07-04] MEDS: Tiotropium CAP.INH* CAP.INH/18 MCG INH SCH (08:24)
[2016-07-04] MEDS ORDERED: Furosemide IV* 10 MG/ML VIAL (40 MG) IV SLOW PU ONE ×2 (08:28→09:41)
[2016-07-04] MEDS: Furosemide IV* 10 MG/ML VIAL (40 MG) IV SLOW PU SCH (08:30)
[2016-07-04] MEDS: CMC:Pravastatin (NF) 20 MG TAB PO SCH (08:38)
[2016-07-04] MEDS: Prenatal Vitamin TAB PO SCH (08:38)
[2016-07-04] MEDS: Cyanocobalamin TAB* 500 MCG PO SCH (08:38)
[2016-07-04] MEDS: Potassium Chlor TAB* 10 MEQ TAB.ER PO SCH (08:38)
[2016-07-04] MEDS: LORazepam TAB(*) 0.5 MG PO PRN (08:39)
[2016-07-04] MEDS: Diltiazem CD CAP* 240 MG PO SCH (08:39)
[2016-07-04] MEDS: Cholecalciferol TAB* 1000 UNITS PO SCH (08:39)
--- NOTE | 2016-07-04 10:27 | PN ---
Progress Note - Progress Note Note: CRITICAL CARE MEDICINE DATE: 07/04/16 TIME: 810 SUBJECTIVE: Patient seen and examined. PHYSICAL EXAM: thin, frail Vital Signs: Reviewed. Neurologic: awake, communicating HEENT: anicteric, jvp up Cardiovascular: prominent sternotomy scar. 3/6 patti at apex Respiratory: basilar rales less but still audible, stable excursion and less distress; + conversational dyspnea still Abdomen: soft, nt Extremities: warm, no edema Access: piv LABS: Reviewed. IMAGING: Reviewed. MEDICATIONS: Reviewed. ASSESSMENT: 86F Acute hypoxic resp failure Acute on chronic systolic heart failure secondary to mitral valve regurg ?copd. appears to be more restrictive then obstructive PLAN: stablized. was on hfo2 overnight and should be able to avoid bipap today. wean to [place] and may need flow rescue if any flash pulm edema events that she can be prone too. Give additional lasix this am to ensure she can stay on the dry side. Cr will be up tomorrow and f/u maintenance needs from there. oob as able. inc diet as able. Consider palliative eval wednesday as pt would like to discuss options. Would benefit likely from home O2. Would have her f/u with Dr. Oakley for valve eval and options as well. ICU today. Likely floor tomorrow. Supportive and preventative care as ordered. SUP: po VTE prophylaxis: heparin Disposition: ICU today Code Status: Full presently Critical Care Time: 25min FGeorge Vasquez DO
[2016-07-04] MEDS: guaiFENesin LIQ* 100 MG/5 ML UDC PO PRN (14:48)
--- NOTE | 2016-07-04 15:16 | PN ---
Subjective Date of Service: 07/04/16 Interval History: HOSPITALIST PROGRESS NOTE Patient seen and examined at bedside. She feels better this AM and asks when can she go home. Just released from BiPAP and appears to be comfortable. Family History: Unchanged from Admission Social History: Unchanged from Admission Past Medical History: Unchanged from Admission Objective Active Medications: Albuterol (Ventolin Hfa Inhaler*) 2 puff INH Q4H PRN PRN Reason: SOB/WHEEZING Budesonide (Pulmicort Neb*) 0.5 mg INH BID [facility] Last Admin: 07/04/16 08:24 Dose: 0.5 mg Cholecalciferol (Vitamin D Tab*) 5,000 units PO DAILY [facility] Last Admin: 07/04/16 08:39 Dose: 5,000 units Cyanocobalamin (Vitamin B12 Tab*) 1,000 mcg PO DAILY [facility] Last Admin: 07/04/16 08:38 Dose: 1,000 mcg Diltiazem HCl (Cardizem Cd Cap*) 240 mg PO DAILY [facility] Last Admin: 07/04/16 08:39 Dose: 240 mg Formoterol Fumarate (Perforomist Neb.Soln*(Nf)) 20 mcg INH BID [facility] Last Admin: 07/04/16 08:24 Dose: 20 mcg Guaifenesin (Robitussin*) 5 ml PO Q4H PRN PRN Reason: COUGH Last Admin: 07/04/16 14:48 Dose: 5 ml Heparin Sodium (Porcine) (Heparin Vial(*)) 5,000 units SUBCUT Q8HR [facility] Last Admin: 07/04/16 14:48 Dose: 5,000 units Levothyroxine Sodium (Synthroid Tab*) 25 mcg PO 0600 [facility] Last Admin: 07/04/16 05:31 Dose: 25 mcg Lorazepam (Ativan Tab(*)) 0.5 mg PO Q4H PRN PRN Reason: ANXIETY Last Admin: 07/04/16 08:39 Dose: 0.5 mg Morphine Sulfate (Morphine Inj (Syringe)*) 2 mg IV Q4H PRN PRN Reason: PAIN - MILD Last Admin: 07/03/16 19:54 Dose: 2 mg Multivitamins ( Vitamin Tab*) 1 tab PO DAILY [facility] Last Admin: 07/04/16 08:38 Dose: 1 tab Potassium Chloride (Klor Con Er Tab*) 10 meq PO DAILY [facility] Last Admin: 07/04/16 08:38 Dose: 10 meq Pravastatin Sodium (Pravachol (Nf)) 10 mg PO DAILY [facility] PRN Reason: Protocol Last Admin: 07/04/16 08:38 Dose: 10 mg Tiotropium [place] (Spiriva Cap.Inh*) 1 cap INH DAILY [facility] Last Admin: 07/04/16 08:24 Dose: 1 cap Vital Signs 07/04/16 07/04/16 07/04/16 10:54 11:00 12:00 Temperature 96.8 F Pulse Rate 98 Respiratory 12 11 21 Rate Blood Pressure 108/46 (mmHg) O2 Sat by Pulse 95 Oximetry 07/04/16 07/04/16 07/04/16 12:02 12:54 13:00 Temperature Pulse Rate 39 93 Respiratory 20 12 12 Rate Blood Pressure 122/42 112/58 (mmHg) O2 Sat by Pulse 87 100 Oximetry Oxygen Devices in Use Now: High Flow Nasal Cannula - Vapotherm 30 liters Appearance: Elderly frail lady lying in bed in [facility]. Eyes: No Scleral Icterus Ears/Nose/Mouth/Throat: Mucous Membranes Moist Neck: Trachea Midline Respiratory: Symmetrical Chest Expansion and Respiratory Effort, - - BS+ bilaterally with bibasilar crackles Cardiovascular: RRR - Normal S1 and S2, +SM Abdominal: NL Sounds; No Tenderness; No Distention Extremities: No Edema Neurological: Alert and Oriented x 3, NL Muscle Strength and Tone Lines/Tubes/Other Access: Clean, Dry and Intact Peripheral IV Nutrition: Taking PO's Result Diagrams: 07/04/16 05:56 07/04/16 05:56 Assess/Plan/Problems-Billing Assessment: Mrs. Hernandez is a 86yo F with PMH of Afib, HTN, diastolic CHF, s/p AVR, s/p pacer , MDS, COPD, cardiac arrest x 2, h/o trach/PEG, HLD, TIA, GI bleed, anxiety, depression, who presents with acute hypoxemic respiratory failure secondary to acute CHF exacerbation. - Patient Problems (1) Acute hypoxemic respiratory failure Comment: - Secondary to CHF exacerbation. - Critical care input appreciated. - Doing better today, released from BiPAP. - Continue Vapotherm, will try to wean to [place]. (2) Acute diastolic CHF (congestive heart failure) Comment: - Secondary to dietary non-compliance in patient with advanced CHF and minimal reserve. - Continue diuresis. - Echocardiogram showed a hyperdynamic LV, EF>65%, RA/LA severely dilated, with severe TR/MR. - Cardiology consult appreciated. (3) Severe mitral regurgitation Comment: - After acute episode is resolved, will d/w patient and family if she has any interest in aggressive procedures (mitral valve clip). - If not, considering her age, frailty, and comorbidities, I believe is time for Palliative care consultation. (4) COPD (chronic obstructive pulmonary disease) Comment: - Continue inhaled steroids and bronchodilators. (5) MDS (myelodysplastic syndrome) Comment: - Hb is below baseline and she has no signs of bleeding at this time. (6) DVT prophylaxis Comment: - SQ Heparin. (7) Full code status Status and Disposition: Inpatient. Condition is guarded.
--- NOTE | 2016-07-04 19:10 | PN ---
Subjective Date of Service: 07/04/16 Interval History: Discussion with RN has received 80 mg IV lasix today and good urine output Patient breathing significantly improved Reading comics, can speak in regular sentences but does cause dyspnea still on high flow 02 Medications Active Medications: Albuterol (Ventolin Hfa Inhaler*) 2 puff INH Q4H PRN PRN Reason: SOB/WHEEZING Budesonide (Pulmicort Neb*) 0.5 mg INH BID [facility] Last Admin: 07/04/16 08:24 Dose: 0.5 mg Cholecalciferol (Vitamin D Tab*) 5,000 units PO DAILY [facility] Last Admin: 07/04/16 08:39 Dose: 5,000 units Cyanocobalamin (Vitamin B12 Tab*) 1,000 mcg PO DAILY [facility] Last Admin: 07/04/16 08:38 Dose: 1,000 mcg Diltiazem HCl (Cardizem Cd Cap*) 240 mg PO DAILY [facility] Last Admin: 07/04/16 08:39 Dose: 240 mg Formoterol Fumarate (Perforomist Neb.Soln*(Nf)) 20 mcg INH BID [facility] Last Admin: 07/04/16 08:24 Dose: 20 mcg Guaifenesin (Robitussin*) 5 ml PO Q4H PRN PRN Reason: COUGH Last Admin: 07/04/16 14:48 Dose: 5 ml Heparin Sodium (Porcine) (Heparin Vial(*)) 5,000 units SUBCUT Q8HR [facility] Last Admin: 07/04/16 14:48 Dose: 5,000 units Levothyroxine Sodium (Synthroid Tab*) 25 mcg PO 0600 [facility] Last Admin: 07/04/16 05:31 Dose: 25 mcg Lorazepam (Ativan Tab(*)) 0.5 mg PO Q4H PRN PRN Reason: ANXIETY Last Admin: 07/04/16 08:39 Dose: 0.5 mg Morphine Sulfate (Morphine Inj (Syringe)*) 2 mg IV Q4H PRN PRN Reason: PAIN - MILD Last Admin: 07/03/16 19:54 Dose: 2 mg Multivitamins ( Vitamin Tab*) 1 tab PO DAILY [facility] Last Admin: 07/04/16 08:38 Dose: 1 tab Potassium Chloride (Klor Con Er Tab*) 10 meq PO DAILY [facility] Last Admin: 07/04/16 08:38 Dose: 10 meq Pravastatin Sodium (Pravachol (Nf)) 10 mg PO DAILY [facility] PRN Reason: Protocol Last Admin: 07/04/16 08:38 Dose: 10 mg Tiotropium [place] (Spiriva Cap.Inh*) 1 cap INH DAILY [facility] Last Admin: 07/04/16 08:24 Dose: 1 cap Objective Vital Signs: Temp Pulse Resp BP Pulse Ox 96.9 F 86 11 110/41 100 07/04/16 16:00 07/04/16 18:00 07/04/16 18:00 07/04/16 18:00 07/04/16 18:00 Oxygen Devices in Use Now: High Flow Nasal Cannula - Vapotherm 30 liters Appearance: frail, elderly, cachectic, Ears/Nose/Mouth/Throat: Clear Oropharnyx Neck: - - + moderate JVD Respiratory: - - mild tachypnea, improved crackles Cardiovascular: No Edema, - - irregularly irregular, 3/6 murmur apex Abdominal: NL Sounds; No Tenderness; No Distention Extremities: No Clubbing, Cyanosis Skin: No Rash or Ulcers Neurological: Alert and Oriented x 3 Laboratory Results: 07/04/16 05:56 07/04/16 05:56 Total Bilirubin 1.30 mg/dL (0.2-1.0) H 07/03/16 03:20 Direct Bilirubin 0.30 mg/dL (0.03-0.18) H 07/03/16 03:20 Indirect Bilirubin 1.0 mg/dL (0.3-1.0) 07/03/16 03:20 AST 21 U/L (13-39) 07/03/16 03:20 ALT 13 U/L (7-52) 07/03/16 03:20 Alkaline Phosphatase 53 U/L (34-104) 07/03/16 03:20 B-Natriuretic Peptide 643 pg/mL (-100) H 07/02/16 23:25 Total Protein 6.4 g/dL (6.4-8.9) 07/03/16 03:20 Albumin 4.1 g/dL (3.2-5.2) 07/03/16 03:20 Globulin 2.3 g/dL (2-4) 07/03/16 03:20 Albumin/Globulin Ratio 1.8 (1-3) 07/03/16 03:20 07/03/16 07/03/16 03:20 08:35 Troponin I 0.05 H* 0.04 H* Diagnostic Imaging: cxr this admission: B/l pulmonary edema EKG Data: EKG this admission: AFib, demand V-paced Assessment/Plan 86 year old woman history of bioprosthetic AVR and MR of questionable severity admitted with ADHF now improving with BIPAP/high flow 02 and diuresis. - Continue diuresis, her BUN and creatinine may continue to rise with further diuresis enough to make comfortable - Monitor for UGIB Thank you for allowing me to participate in the cardiovascular care of this patient. Please do not hesitate to contact me with questions or concerns.
[2016-07-04] MEDS: Morphine INJ* 2 MG/ML 1 ML SYRINGE IV PRN (20:45)
[2016-07-05] MEDS: guaiFENesin LIQ* 100 MG/5 ML UDC PO PRN ×3 (04:35→16:31)
[2016-07-05] MEDS: Morphine INJ* 2 MG/ML 1 ML SYRINGE IV PRN ×3 (05:06→20:58)
[2016-07-05] MEDS: Levothyroxine TAB* 25 MCG TAB PO SCH (05:06)
[2016-07-05] MEDS: Heparin VIAL(*) 5000 UNITS/ML VIAL (FIVE THOUSAND) SUBCUT SCH ×3 (05:06→20:57)
[2016-07-05 05:41] LABS: BUN/Creatinine Ratio 51.9 (8-20); Calcium 8.3 mg/dL (8.6-10.3); EGFR Non-African American 70.7 (>60); Magnesium 2.3 mg/dL (1.9-2.7); Phosphorus 2.9 mg/dL (2.5-5.0); Potassium 4.3 mmol/L (3.5-5.0)
[2016-07-05] MEDS ORDERED: Furosemide IV* 10 MG/ML 2 ML VIAL (20 MG) IV SLOW PU ONE (07:53)
[2016-07-05] MEDS: CMCS: Formoterol 20 MCG/2ML NEB (NF) 10 MCG/ML NEB.SOLN INH SCH ×2 (08:33→20:13)
[2016-07-05] MEDS: Tiotropium CAP.INH* CAP.INH/18 MCG INH SCH (08:33)
[2016-07-05] MEDS: Budesonide NEB* 0.5 MG/2 ML NEB.SOLN INH SCH ×2 (08:33→20:12)
[2016-07-05] MEDS: Potassium Chlor TAB* 10 MEQ TAB.ER PO SCH (09:30)
[2016-07-05] MEDS: Cyanocobalamin TAB* 500 MCG PO SCH (09:33)
[2016-07-05] MEDS: CMC:Pravastatin (NF) 20 MG TAB PO SCH (09:33)
[2016-07-05] MEDS: Diltiazem CD CAP* 240 MG PO SCH (09:33)
[2016-07-05] MEDS: Prenatal Vitamin TAB PO SCH (09:33)
[2016-07-05] MEDS: Cholecalciferol TAB* 1000 UNITS PO SCH (09:44)
--- NOTE | 2016-07-05 14:29 | PN ---
Subjective Date of Service: 07/05/16 Interval History: HOSPITALIST PROGRESS NOTE Patient seen and examined at bedside. She feels much better today, comfortable on a Salter cannula. Family History: Unchanged from Admission Social History: Unchanged from Admission Past Medical History: Unchanged from Admission Objective Active Medications: Albuterol (Ventolin Hfa Inhaler*) 2 puff INH Q4H PRN PRN Reason: SOB/WHEEZING Budesonide (Pulmicort Neb*) 0.5 mg INH BID [facility] Last Admin: 07/05/16 08:33 Dose: 0.5 mg Cholecalciferol (Vitamin D Tab*) 5,000 units PO DAILY [facility] Last Admin: 07/05/16 09:44 Dose: 5,000 units Cyanocobalamin (Vitamin B12 Tab*) 1,000 mcg PO DAILY [facility] Last Admin: 07/05/16 09:33 Dose: 1,000 mcg Diltiazem HCl (Cardizem Cd Cap*) 240 mg PO DAILY [facility] Last Admin: 07/05/16 09:33 Dose: 240 mg Formoterol Fumarate (Perforomist Neb.Soln*(Nf)) 20 mcg INH BID [facility] Last Admin: 07/05/16 08:33 Dose: 20 mcg Guaifenesin (Robitussin*) 5 ml PO Q4H PRN PRN Reason: COUGH Last Admin: 07/05/16 11:12 Dose: 5 ml Heparin Sodium (Porcine) (Heparin Vial(*)) 5,000 units SUBCUT Q8HR [facility] Last Admin: 07/05/16 05:06 Dose: 5,000 units Levothyroxine Sodium (Synthroid Tab*) 25 mcg PO 0600 [facility] Last Admin: 07/05/16 05:06 Dose: 25 mcg Lorazepam (Ativan Tab(*)) 0.5 mg PO Q4H PRN PRN Reason: ANXIETY Last Admin: 07/04/16 08:39 Dose: 0.5 mg Morphine Sulfate (Morphine Inj (Syringe)*) 2 mg IV Q4H PRN PRN Reason: PAIN - MILD Last Admin: 07/05/16 10:08 Dose: 2 mg Multivitamins ( Vitamin Tab*) 1 tab PO DAILY [facility] Last Admin: 07/05/16 09:33 Dose: 1 tab Potassium Chloride (Klor Con Er Tab*) 10 meq PO DAILY [facility] Last Admin: 07/05/16 09:30 Dose: 10 meq Pravastatin Sodium (Pravachol (Nf)) 10 mg PO DAILY [facility] PRN Reason: Protocol Last Admin: 07/05/16 09:33 Dose: 10 mg Tiotropium [place] (Spiriva Cap.Inh*) 1 cap INH DAILY [facility] Last Admin: 07/05/16 08:33 Dose: 1 cap Vital Signs 07/05/16 07/05/16 07/05/16 10:08 11:00 11:26 Temperature 98.6 F Pulse Rate 92 Respiratory 22 11 Rate Blood Pressure 130/56 (mmHg) O2 Sat by Pulse 95 Oximetry 07/05/16 07/05/16 07/05/16 12:00 13:00 14:00 Temperature Pulse Rate 93 108 93 Respiratory 12 18 10 Rate Blood Pressure 128/56 120/64 112/49 (mmHg) O2 Sat by Pulse 95 92 95 Oximetry Oxygen Devices in Use Now: High Flow Nasal Cannula - Salter at 13 liters Appearance: Pleasant, frail, elderly lady, lying in bed in NAD. Eyes: No Scleral Icterus Ears/Nose/Mouth/Throat: Mucous Membranes Moist Neck: Trachea Midline Respiratory: Symmetrical Chest Expansion and Respiratory Effort, - - BS+ bilaterally with bibasilar rales Cardiovascular: RRR - Normal S1 and S2, +SM Abdominal: NL Sounds; No Tenderness; No Distention Extremities: No Edema Neurological: Alert and Oriented x 3, NL Muscle Strength and Tone Lines/Tubes/Other Access: Clean, Dry and Intact Peripheral IV Nutrition: Taking PO's Result Diagrams: 07/04/16 05:56 07/05/16 05:18 Assess/Plan/Problems-Billing Assessment: Mrs. Hernandez is a 86yo F with PMH of Afib, HTN, diastolic CHF, s/p AVR, s/p pacer , MDS, COPD, cardiac arrest x 2, h/o trach/PEG, HLD, TIA, GI bleed, anxiety, depression, who presents with acute hypoxemic respiratory failure secondary to acute CHF exacerbation. - Patient Problems (1) Acute hypoxemic respiratory failure Comment: - Secondary to CHF exacerbation. - Critical care input appreciated. - Doing better today, released from BiPAP, tolerating Salter. (2) Acute diastolic CHF (congestive heart failure) Comment: - Secondary to dietary non-compliance in patient with advanced CHF and minimal reserve. - Continue diuresis, but with lower dose. - Echocardiogram showed a hyperdynamic LV, EF>65%, RA/LA severely dilated, with severe TR/MR. - Cardiology consult appreciated. (3) Severe mitral regurgitation Comment: - After acute episode is resolved, will d/w patient and family if she has any interest in aggressive procedures (mitral valve clip). - If not, considering her age, frailty, and comorbidities, I believe is time for Palliative care consultation. (4) COPD (chronic obstructive pulmonary disease) Comment: - Continue inhaled steroids and bronchodilators. (5) MDS (myelodysplastic syndrome) Comment: - Hb is below baseline and she has no signs of bleeding at this time. (6) DVT prophylaxis Comment: - SQ Heparin. (7) Full code status Status and Disposition: Inpatient. Condition is guarded.
--- NOTE | 2016-07-05 18:20 | PN ---
Subjective Date of Service: 07/05/16 Interval History: patient continues to improve off high flow 02 breathing more comfortably Medications Active Medications: Albuterol (Ventolin Hfa Inhaler*) 2 puff INH Q4H PRN PRN Reason: SOB/WHEEZING Budesonide (Pulmicort Neb*) 0.5 mg INH BID [facility] Last Admin: 07/05/16 08:33 Dose: 0.5 mg Cholecalciferol (Vitamin D Tab*) 5,000 units PO DAILY [facility] Last Admin: 07/05/16 09:44 Dose: 5,000 units Cyanocobalamin (Vitamin B12 Tab*) 1,000 mcg PO DAILY [facility] Last Admin: 07/05/16 09:33 Dose: 1,000 mcg Diltiazem HCl (Cardizem Cd Cap*) 240 mg PO DAILY [facility] Last Admin: 07/05/16 09:33 Dose: 240 mg Formoterol Fumarate (Perforomist Neb.Soln*(Nf)) 20 mcg INH BID [facility] Last Admin: 07/05/16 08:33 Dose: 20 mcg Guaifenesin (Robitussin*) 5 ml PO Q4H PRN PRN Reason: COUGH Last Admin: 07/05/16 16:31 Dose: 5 ml Heparin Sodium (Porcine) (Heparin Vial(*)) 5,000 units SUBCUT Q8HR [facility] Last Admin: 07/05/16 15:04 Dose: 5,000 units Levothyroxine Sodium (Synthroid Tab*) 25 mcg PO 0600 [facility] Last Admin: 07/05/16 05:06 Dose: 25 mcg Lorazepam (Ativan Tab(*)) 0.5 mg PO Q4H PRN PRN Reason: ANXIETY Last Admin: 07/04/16 08:39 Dose: 0.5 mg Morphine Sulfate (Morphine Inj (Syringe)*) 2 mg IV Q4H PRN PRN Reason: PAIN - MILD Last Admin: 07/05/16 10:08 Dose: 2 mg Multivitamins ( Vitamin Tab*) 1 tab PO DAILY [facility] Last Admin: 07/05/16 09:33 Dose: 1 tab Potassium Chloride (Klor Con Er Tab*) 10 meq PO DAILY [facility] Last Admin: 07/05/16 09:30 Dose: 10 meq Pravastatin Sodium (Pravachol (Nf)) 10 mg PO DAILY [facility] PRN Reason: Protocol Last Admin: 07/05/16 09:33 Dose: 10 mg Tiotropium [place] (Spiriva Cap.Inh*) 1 cap INH DAILY [facility] Last Admin: 07/05/16 08:33 Dose: 1 cap Objective Vital Signs: Temp Pulse Resp BP Pulse Ox 98.1 F 66 15 117/75 93 07/05/16 16:00 07/05/16 18:00 07/05/16 18:00 07/05/16 18:00 07/05/16 18:00 Oxygen Devices in Use Now: High Flow Nasal Cannula - Salter at 13 liters Appearance: frail, elderly, cachectic, Ears/Nose/Mouth/Throat: Clear Oropharnyx Neck: - - + mild to moderate JVD Respiratory: - - no tachypnea, b/l crackles Cardiovascular: No Edema, - - irregularly irregular, 3/6 murmur apex Abdominal: NL Sounds; No Tenderness; No Distention Extremities: No Clubbing, Cyanosis Skin: No Rash or Ulcers Neurological: Alert and Oriented x 3 Laboratory Results: 07/04/16 05:56 07/05/16 05:18 Total Bilirubin 1.30 mg/dL (0.2-1.0) H 07/03/16 03:20 Direct Bilirubin 0.30 mg/dL (0.03-0.18) H 07/03/16 03:20 Indirect Bilirubin 1.0 mg/dL (0.3-1.0) 07/03/16 03:20 AST 21 U/L (13-39) 07/03/16 03:20 ALT 13 U/L (7-52) 07/03/16 03:20 Alkaline Phosphatase 53 U/L (34-104) 07/03/16 03:20 B-Natriuretic Peptide 643 pg/mL (-100) H 07/02/16 23:25 Total Protein 6.4 g/dL (6.4-8.9) 07/03/16 03:20 Albumin 4.1 g/dL (3.2-5.2) 07/03/16 03:20 Globulin 2.3 g/dL (2-4) 07/03/16 03:20 Albumin/Globulin Ratio 1.8 (1-3) 07/03/16 03:20 07/03/16 07/03/16 03:20 08:35 Troponin I 0.05 H* 0.04 H* Diagnostic Imaging: cxr this admission: B/l pulmonary edema EKG Data: EKG this admission: AFib, demand V-paced Assessment/Plan 86 year old woman history of bioprosthetic AVR and MR of questionable severity admitted with ADHF now improving with medical therapy. Also has anemia - Continue diuresis, her BUN and creatinine may continue to rise with further diuresis enough to make her more comfortable - Monitor for UGIB Thank you for allowing me to participate in the cardiovascular care of this patient. Please do not hesitate to contact me with questions or concerns.
[2016-07-06] MEDS: Levothyroxine TAB* 25 MCG TAB PO SCH (05:54)
[2016-07-06] MEDS: Heparin VIAL(*) 5000 UNITS/ML VIAL (FIVE THOUSAND) SUBCUT SCH ×3 (05:54→21:59)
[2016-07-06 06:10] LABS: Calcium 8.5 mg/dL (8.6-10.3); EGFR Non-African American 59.9 (>60); Potassium 4.3 mmol/L (3.5-5.0)
[2016-07-06] MEDS: CMCS: Formoterol 20 MCG/2ML NEB (NF) 10 MCG/ML NEB.SOLN INH SCH ×2 (07:53→21:25)
[2016-07-06] MEDS: Budesonide NEB* 0.5 MG/2 ML NEB.SOLN INH SCH ×2 (07:53→21:25)
[2016-07-06] MEDS: Tiotropium CAP.INH* CAP.INH/18 MCG INH SCH (07:53)
[2016-07-06] MEDS: Cholecalciferol TAB* 1000 UNITS PO SCH (08:34)
[2016-07-06] MEDS: Diltiazem CD CAP* 240 MG PO SCH (08:34)
[2016-07-06] MEDS: Morphine INJ* 2 MG/ML 1 ML SYRINGE IV PRN ×2 (08:34→13:40)
[2016-07-06] MEDS: Prenatal Vitamin TAB PO SCH (08:34)
[2016-07-06] MEDS: Cyanocobalamin TAB* 500 MCG PO SCH (08:34)
[2016-07-06] MEDS: CMC:Pravastatin (NF) 20 MG TAB PO SCH (08:34)
[2016-07-06] MEDS: Potassium Chlor TAB* 10 MEQ TAB.ER PO SCH (08:35)
--- NOTE | 2016-07-06 08:42 | PN ---
Subjective Date of Service: 07/06/16 Interval History: HOSPITALIST PROGRESS NOTE Patient seen and examined at bedside. She feels better this AM, was able to sleep last night, and wants to move. Family History: Unchanged from Admission Social History: Unchanged from Admission Past Medical History: Unchanged from Admission Objective Active Medications: Albuterol (Ventolin Hfa Inhaler*) 2 puff INH Q4H PRN PRN Reason: SOB/WHEEZING Budesonide (Pulmicort Neb*) 0.5 mg INH BID [facility] Last Admin: 07/06/16 07:53 Dose: 0.5 mg Cholecalciferol (Vitamin D Tab*) 5,000 units PO DAILY [facility] Last Admin: 07/05/16 09:44 Dose: 5,000 units Cyanocobalamin (Vitamin B12 Tab*) 1,000 mcg PO DAILY [facility] Last Admin: 07/05/16 09:33 Dose: 1,000 mcg Diltiazem HCl (Cardizem Cd Cap*) 240 mg PO DAILY [facility] Last Admin: 07/05/16 09:33 Dose: 240 mg Formoterol Fumarate (Perforomist Neb.Soln*(Nf)) 20 mcg INH BID [facility] Last Admin: 07/06/16 07:53 Dose: 20 mcg Guaifenesin (Robitussin*) 5 ml PO Q4H PRN PRN Reason: COUGH Last Admin: 07/05/16 16:31 Dose: 5 ml Heparin Sodium (Porcine) (Heparin Vial(*)) 5,000 units SUBCUT Q8HR [facility] Last Admin: 07/06/16 05:54 Dose: 5,000 units Levothyroxine Sodium (Synthroid Tab*) 25 mcg PO 0600 [facility] Last Admin: 07/06/16 05:54 Dose: 25 mcg Lorazepam (Ativan Tab(*)) 0.5 mg PO Q4H PRN PRN Reason: ANXIETY Last Admin: 07/04/16 08:39 Dose: 0.5 mg Morphine Sulfate (Morphine Inj (Syringe)*) 2 mg IV Q4H PRN PRN Reason: PAIN - MILD Last Admin: 07/05/16 20:58 Dose: 2 mg Multivitamins ( Vitamin Tab*) 1 tab PO DAILY [facility] Last Admin: 07/05/16 09:33 Dose: 1 tab Potassium Chloride (Klor Con Er Tab*) 10 meq PO DAILY [facility] Last Admin: 07/05/16 09:30 Dose: 10 meq Pravastatin Sodium (Pravachol (Nf)) 10 mg PO DAILY [facility] PRN Reason: Protocol Last Admin: 07/05/16 09:33 Dose: 10 mg Tiotropium [place] (Spiriva Cap.Inh*) 1 cap INH DAILY [facility] Last Admin: 07/06/16 07:53 Dose: 1 cap Vital Signs 07/06/16 07/06/16 07/06/16 07:53 07:59 08:00 Temperature 98.2 F Pulse Rate 19 Respiratory 20 Rate Blood Pressure (mmHg) O2 Sat by Pulse 99 99 Oximetry 07/06/16 08:02 Temperature Pulse Rate 96 Respiratory 19 Rate Blood Pressure 140/54 (mmHg) O2 Sat by Pulse 97 Oximetry Oxygen Devices in Use Now: Nasal Cannula - 5 liters Appearance: Frail, elderly lady lying in bed in NAD. Eyes: No Scleral Icterus Ears/Nose/Mouth/Throat: Mucous Membranes Moist Neck: Trachea Midline Respiratory: Symmetrical Chest Expansion and Respiratory Effort, Clear to Auscultation Cardiovascular: - - Normal S1 and S2, irregular, +SM Neurological: Alert and Oriented x 3, NL Muscle Strength and Tone Lines/Tubes/Other Access: Clean, Dry and Intact Peripheral IV Nutrition: Taking PO's Result Diagrams: 07/04/16 05:56 07/06/16 05:45 Assess/Plan/Problems-Billing Assessment: Mrs. Hernandez is a 86yo F with PMH of Afib, HTN, diastolic CHF, s/p AVR, s/p pacer , MDS, COPD, cardiac arrest x 2, h/o trach/PEG, HLD, TIA, GI bleed, anxiety, depression, who presents with acute hypoxemic respiratory failure secondary to acute CHF exacerbation. - Patient Problems (1) Acute hypoxemic respiratory failure Comment: - Secondary to CHF exacerbation. - Continues to improved, now on nasal cannula 5 liters. (2) Acute diastolic CHF (congestive heart failure) Comment: - Secondary to dietary non-compliance in patient with advanced CHF and minimal reserve. - Continue diuresis, but with lower dose. - Echocardiogram showed a hyperdynamic LV, EF>65%, RA/LA severely dilated, with severe TR/MR. - Cardiology follow up appreciated. (3) Severe mitral regurgitation Comment: - After acute episode is resolved, will d/w patient and family if she has any interest in aggressive procedures (mitral valve clip). - If not, considering her age, frailty, and comorbidities, I believe is time for Palliative care consultation. (4) COPD (chronic obstructive pulmonary disease) Comment: - Continue inhaled steroids and bronchodilators. (5) MDS (myelodysplastic syndrome) Comment: - Hb is below baseline and she has no signs of bleeding at this time. (6) DVT prophylaxis Comment: - SQ Heparin. (7) Full code status Status and Disposition: Inpatient. Prognosis is still poor, but she is improving. Transfer to Telemetry.
[2016-07-06] MEDS ORDERED: Furosemide IV* 10 MG/ML 2 ML VIAL (20 MG) IV SLOW PU ONE (08:46)
[2016-07-06] MEDS: Senna TAB PO PRN (22:00)
[2016-07-07] MEDS: Morphine INJ* 2 MG/ML 1 ML SYRINGE IV PRN (01:30)
[2016-07-07] MEDS: Heparin VIAL(*) 5000 UNITS/ML VIAL (FIVE THOUSAND) SUBCUT SCH ×3 (05:46→21:15)
[2016-07-07] MEDS: Levothyroxine TAB* 25 MCG TAB PO SCH (05:47)
[2016-07-07 07:03] LABS: Hematocrit 22 % (35-47); Hemoglobin 7.2 g/dl (12.0-16.0); Mean Corpuscular HGB Conc 33 g/dl (31-36); Mean Corpuscular Hemoglobin 40 pg (27-31); Mean Platelet Volume 8 um3 (7.4-10.4); Red Blood Count 1.79 10^6/ul (4.0-5.4); Red Cell Distribution Width 23 % (10.5-15)
[2016-07-07 07:17] LABS: Add Diff/Slide Review? Slide Review Added; BUN/Creatinine Ratio 24.7 (8-20); Calcium 8.5 mg/dL (8.6-10.3); Comments Flag Yes; EGFR African American 85.8 (>60); EGFR Non-African American 66.7 (>60); Mean Corpuscular Volume 121 fL (80-97); Potassium 3.8 mmol/L (3.5-5.0)
[2016-07-07 08:13] LABS: Basophilic Stippling 1+; Schistocytes 1+
[2016-07-07 08:15] LABS: Hypochromasia 2+; Macrocytosis 2+; Microcytosis 2+
[2016-07-07] MEDS: Tiotropium CAP.INH* CAP.INH/18 MCG INH SCH (09:28)
[2016-07-07] MEDS: Budesonide NEB* 0.5 MG/2 ML NEB.SOLN INH SCH ×2 (09:28→19:43)
[2016-07-07] MEDS: CMCS: Formoterol 20 MCG/2ML NEB (NF) 10 MCG/ML NEB.SOLN INH SCH ×2 (09:28→19:43)
[2016-07-07] MEDS: Cyanocobalamin TAB* 500 MCG PO SCH (10:34)
[2016-07-07] MEDS: Diltiazem CD CAP* 240 MG PO SCH (10:34)
[2016-07-07] MEDS: CMC:Pravastatin (NF) 20 MG TAB PO SCH (10:34)
[2016-07-07] MEDS: Cholecalciferol TAB* 1000 UNITS PO SCH (10:35)
[2016-07-07] MEDS: Potassium Chlor TAB* 10 MEQ TAB.ER PO SCH (10:35)
[2016-07-07] MEDS: Prenatal Vitamin TAB PO SCH (10:35)
[2016-07-07] MEDS: LORazepam TAB(*) 0.5 MG PO PRN (10:36)
--- NOTE | 2016-07-07 13:53 | PN ---
Subjective Date of Service: 07/07/16 Interval History: HOSPITALIST PROGRESS NOTE Patient seen and examined at bedside. She is frustrated with her condition today: "I'm used to do everything, and now I can't". Family History: Unchanged from Admission Social History: Unchanged from Admission Past Medical History: Unchanged from Admission Objective Active Medications: Acetaminophen (Tylenol Tab*) 650 mg PO Q6H PRN PRN Reason: pain/fever Albuterol (Ventolin Hfa Inhaler*) 2 puff INH Q4H PRN PRN Reason: SOB/WHEEZING Budesonide (Pulmicort Neb*) 0.5 mg INH BID [facility] Last Admin: 07/07/16 09:28 Dose: 0.5 mg Cholecalciferol (Vitamin D Tab*) 5,000 units PO DAILY [facility] Last Admin: 07/07/16 10:35 Dose: 5,000 units Cyanocobalamin (Vitamin B12 Tab*) 1,000 mcg PO DAILY [facility] Last Admin: 07/07/16 10:34 Dose: 1,000 mcg Diltiazem HCl (Cardizem Cd Cap*) 240 mg PO DAILY [facility] Last Admin: 07/07/16 10:34 Dose: 240 mg Formoterol Fumarate (Perforomist Neb.Soln*(Nf)) 20 mcg INH BID [facility] Last Admin: 07/07/16 09:28 Dose: 20 mcg Guaifenesin (Robitussin*) 5 ml PO Q4H PRN PRN Reason: COUGH Last Admin: 07/05/16 16:31 Dose: 5 ml Heparin Sodium (Porcine) (Heparin Vial(*)) 5,000 units SUBCUT Q8HR [facility] Last Admin: 07/07/16 05:46 Dose: 5,000 units Levothyroxine Sodium (Synthroid Tab*) 25 mcg PO 0600 [facility] Last Admin: 07/07/16 05:47 Dose: 25 mcg Lorazepam (Ativan Tab(*)) 0.5 mg PO Q4H PRN PRN Reason: ANXIETY Last Admin: 07/07/16 10:36 Dose: 0.5 mg Morphine Sulfate (Morphine Inj (Syringe)*) 2 mg IV Q4H PRN PRN Reason: PAIN - MILD Last Admin: 07/07/16 01:30 Dose: 2 mg Multivitamins ( Vitamin Tab*) 1 tab PO DAILY [facility] Last Admin: 07/07/16 10:35 Dose: 1 tab Potassium Chloride (Klor Con Er Tab*) 10 meq PO DAILY [facility] Last Admin: 07/07/16 10:35 Dose: 10 meq Pravastatin Sodium (Pravachol (Nf)) 10 mg PO DAILY [facility] PRN Reason: Protocol Last Admin: 07/07/16 10:34 Dose: 10 mg Senna (Senokot Tab*) 2 tab PO BEDTIME PRN PRN Reason: CONSTIPATION Last Admin: 07/06/16 22:00 Dose: 2 tab Tiotropium [place] (Spiriva Cap.Inh*) 1 cap INH DAILY [facility] Last Admin: 07/07/16 09:28 Dose: 1 cap Vital Signs 07/07/16 07/07/16 07/07/16 10:36 11:04 12:36 Temperature 98.3 F Pulse Rate 84 Respiratory 18 17 16 Rate Blood Pressure 140/49 (mmHg) O2 Sat by Pulse 100 Oximetry Oxygen Devices in Use Now: Nasal Cannula - 3 liters Appearance: Frail, elderly lady sitting up in a chair in [facility]. Eyes: No Scleral Icterus Ears/Nose/Mouth/Throat: Mucous Membranes Moist Neck: Trachea Midline Respiratory: Symmetrical Chest Expansion and Respiratory Effort, - - BS+ bilaterally with bibasilar rales Cardiovascular: RRR - Normal S1 and S2 Abdominal: NL Sounds; No Tenderness; No Distention Neurological: Alert and Oriented x 3, NL Muscle Strength and Tone Lines/Tubes/Other Access: Clean, Dry and Intact Peripheral IV Nutrition: Taking PO's Result Diagrams: 07/07/16 06:34 07/07/16 06:34 Assess/Plan/Problems-Billing Assessment: Mrs. Hernandez is a 86yo F with PMH of Afib, HTN, diastolic CHF, s/p AVR, s/p pacer , MDS, COPD, cardiac arrest x 2, h/o trach/PEG, HLD, TIA, GI bleed, anxiety, depression, who presents with acute hypoxemic respiratory failure secondary to acute CHF exacerbation. - Patient Problems (1) Acute hypoxemic respiratory failure Comment: - Secondary to CHF exacerbation. - Continues to improved, now on nasal cannula 3 liters. (2) Acute diastolic CHF (congestive heart failure) Comment: - Secondary to dietary non-compliance in patient with advanced CHF and minimal reserve.. - Echocardiogram showed a hyperdynamic LV, EF>65%, RA/LA severely dilated, with severe TR/MR. - Cardiology follow up appreciated. (3) Severe mitral regurgitation Comment: - After acute episode is resolved, will d/w patient and family if she has any interest in aggressive procedures (mitral valve clip). - If not, considering her age, frailty, and comorbidities, I believe is time for Palliative care consultation. (4) COPD (chronic obstructive pulmonary disease) Comment: - Continue inhaled steroids and bronchodilators. (5) MDS (myelodysplastic syndrome) Comment: - Hb is below baseline and she has no signs of bleeding at this time. (6) DVT prophylaxis Comment: - SQ Heparin. (7) Full code status Status and Disposition: Inpatient. Prognosis is still poor, but she is improving. and daughter updated over the phone.
[2016-07-08] MEDS: Levothyroxine TAB* 25 MCG TAB PO SCH (05:23)
[2016-07-08] MEDS: Heparin VIAL(*) 5000 UNITS/ML VIAL (FIVE THOUSAND) SUBCUT SCH ×3 (05:23→22:54)
[2016-07-08] MEDS: guaiFENesin LIQ* 100 MG/5 ML UDC PO PRN (05:25)
[2016-07-08] MEDS: Budesonide NEB* 0.5 MG/2 ML NEB.SOLN INH SCH ×2 (08:41→21:41)
[2016-07-08] MEDS: CMCS: Formoterol 20 MCG/2ML NEB (NF) 10 MCG/ML NEB.SOLN INH SCH ×2 (08:41→21:45)
[2016-07-08] MEDS: Tiotropium CAP.INH* CAP.INH/18 MCG INH SCH (08:41)
[2016-07-08] MEDS: Cyanocobalamin TAB* 500 MCG PO SCH (09:08)
[2016-07-08] MEDS: Potassium Chlor TAB* 10 MEQ TAB.ER PO SCH (09:08)
[2016-07-08] MEDS: CMC:Pravastatin (NF) 20 MG TAB PO SCH (09:08)
[2016-07-08] MEDS: Cholecalciferol TAB* 1000 UNITS PO SCH (09:09)
[2016-07-08] MEDS: Prenatal Vitamin TAB PO SCH (09:09)
[2016-07-08] MEDS: Diltiazem CD CAP* 240 MG PO SCH (09:09)
--- NOTE | 2016-07-08 13:52 | PN ---
Subjective Date of Service: 07/08/16 Interval History: HOSPITALIST PROGRESS NOTE Patient seen and examined at bedside. She states her breathing is much better. She denies CP, palpitations. Her major concern at this time is she needs dental floss and we don't have it in the hospital. Family History: Unchanged from Admission Social History: Unchanged from Admission Past Medical History: Unchanged from Admission Objective Active Medications: Acetaminophen (Tylenol Tab*) 650 mg PO Q6H PRN PRN Reason: pain/fever Albuterol (Ventolin Hfa Inhaler*) 2 puff INH Q4H PRN PRN Reason: SOB/WHEEZING Budesonide (Pulmicort Neb*) 0.5 mg INH BID [facility] Last Admin: 07/08/16 08:41 Dose: 0.5 mg Cholecalciferol (Vitamin D Tab*) 5,000 units PO DAILY [facility] Last Admin: 07/08/16 09:09 Dose: 5,000 units Cyanocobalamin (Vitamin B12 Tab*) 1,000 mcg PO DAILY [facility] Last Admin: 07/08/16 09:08 Dose: 1,000 mcg Diltiazem HCl (Cardizem Cd Cap*) 240 mg PO DAILY [facility] Last Admin: 07/08/16 09:09 Dose: 240 mg Formoterol Fumarate (Perforomist Neb.Soln*(Nf)) 20 mcg INH BID [facility] Last Admin: 07/08/16 08:41 Dose: 20 mcg Guaifenesin (Robitussin*) 5 ml PO Q4H PRN PRN Reason: COUGH Last Admin: 07/08/16 05:25 Dose: 5 ml Heparin Sodium (Porcine) (Heparin Vial(*)) 5,000 units SUBCUT Q8HR [facility] Last Admin: 07/08/16 05:23 Dose: 5,000 units Levothyroxine Sodium (Synthroid Tab*) 25 mcg PO 0600 [facility] Last Admin: 07/08/16 05:23 Dose: 25 mcg Lorazepam (Ativan Tab(*)) 0.5 mg PO Q4H PRN PRN Reason: ANXIETY Last Admin: 07/07/16 10:36 Dose: 0.5 mg Morphine Sulfate (Morphine Inj (Syringe)*) 2 mg IV Q4H PRN PRN Reason: PAIN - MILD Last Admin: 07/07/16 01:30 Dose: 2 mg Multivitamins ( Vitamin Tab*) 1 tab PO DAILY [facility] Last Admin: 07/08/16 09:09 Dose: 1 tab Potassium Chloride (Klor Con Er Tab*) 10 meq PO DAILY [facility] Last Admin: 07/08/16 09:08 Dose: 10 meq Pravastatin Sodium (Pravachol (Nf)) 10 mg PO DAILY [facility] PRN Reason: Protocol Last Admin: 07/08/16 09:08 Dose: 10 mg Senna (Senokot Tab*) 2 tab PO BEDTIME PRN PRN Reason: CONSTIPATION Last Admin: 07/06/16 22:00 Dose: 2 tab Tiotropium [place] (Spiriva Cap.Inh*) 1 cap INH DAILY [facility] Last Admin: 07/08/16 08:41 Dose: 1 cap Vital Signs 07/08/16 07/08/16 08:47 11:26 Temperature 97.8 F Pulse Rate 96 84 Respiratory 22 18 Rate Blood Pressure 126/46 (mmHg) O2 Sat by Pulse 99 100 Oximetry Oxygen Devices in Use Now: Nasal Cannula - 3 liters Appearance: Frail, elderly lady sitting up in bed in [facility]. Eyes: No Scleral Icterus Ears/Nose/Mouth/Throat: Mucous Membranes Moist Neck: Trachea Midline Respiratory: Symmetrical Chest Expansion and Respiratory Effort, Clear to Auscultation Cardiovascular: RRR - Normal S1 and S2, +SM Abdominal: NL Sounds; No Tenderness; No Distention Extremities: No Edema Neurological: Alert and Oriented x 3, NL Muscle Strength and Tone Lines/Tubes/Other Access: Clean, Dry and Intact Peripheral IV Nutrition: Taking PO's Result Diagrams: 07/07/16 06:34 07/07/16 06:34 Assess/Plan/Problems-Billing Assessment: Mrs. Hernanedz is a 86yo F with PMH of Afib, HTN, diastolic CHF, s/p AVR, s/p pacer , MDS, COPD, cardiac arrest x 2, h/o trach/PEG, HLD, TIA, GI bleed, anxiety, depression, who presents with acute hypoxemic respiratory failure secondary to acute CHF exacerbation. - Patient Problems (1) Acute hypoxemic respiratory failure Comment: - Secondary to CHF exacerbation. - Continues to improved, now on nasal cannula 2 liters. (2) Acute diastolic CHF (congestive heart failure) Comment: - Secondary to dietary non-compliance in patient with advanced CHF and minimal reserve.. - Echocardiogram showed a hyperdynamic LV, EF>65%, RA/LA severely dilated, with severe TR/MR. - Will be seen by Dr. Oakley today to discuss CRUZ and MV clipping. (3) Severe mitral regurgitation Comment: - After acute episode is resolved, will d/w patient and family if she has any interest in aggressive procedures (mitral valve clip). - If not, considering her age, frailty, and comorbidities, I believe is time for Palliative care consultation. (4) COPD (chronic obstructive pulmonary disease) Comment: - Continue inhaled steroids and bronchodilators. (5) MDS (myelodysplastic syndrome) Comment: - Hb is below baseline and she has no signs of bleeding at this time. (6) DVT prophylaxis Comment: - SQ Heparin. (7) Full code status Status and Disposition: Inpatient. Prognosis is still poor, but she continues to improve.
--- NOTE | 2016-07-08 14:24 | PN ---
Subjective Date of Service: 07/08/16 - CC: I am suffocating. Interval History: Breathing is better but she still get winded, is having trouble sleeping at 40 degrees. She doesn't want to go home now as she feels she will be a burden on her and doesn't feel up to caring for her whom she has cared for her entire life. She feels he is less and less able to care for himself. Medications Active Medications: Acetaminophen (Tylenol Tab*) 650 mg PO Q6H PRN PRN Reason: pain/fever Albuterol (Ventolin Hfa Inhaler*) 2 puff INH Q4H PRN PRN Reason: SOB/WHEEZING Budesonide (Pulmicort Neb*) 0.5 mg INH BID [facility] Last Admin: 07/08/16 08:41 Dose: 0.5 mg Cholecalciferol (Vitamin D Tab*) 5,000 units PO DAILY [facility] Last Admin: 07/08/16 09:09 Dose: 5,000 units Cyanocobalamin (Vitamin B12 Tab*) 1,000 mcg PO DAILY [facility] Last Admin: 07/08/16 09:08 Dose: 1,000 mcg Diltiazem HCl (Cardizem Cd Cap*) 240 mg PO DAILY [facility] Last Admin: 07/08/16 09:09 Dose: 240 mg Formoterol Fumarate (Perforomist Neb.Soln*(Nf)) 20 mcg INH BID [facility] Last Admin: 07/08/16 08:41 Dose: 20 mcg Guaifenesin (Robitussin*) 5 ml PO Q4H PRN PRN Reason: COUGH Last Admin: 07/08/16 05:25 Dose: 5 ml Heparin Sodium (Porcine) (Heparin Vial(*)) 5,000 units SUBCUT Q8HR [facility] Last Admin: 07/08/16 05:23 Dose: 5,000 units Levothyroxine Sodium (Synthroid Tab*) 25 mcg PO 0600 [facility] Last Admin: 07/08/16 05:23 Dose: 25 mcg Lorazepam (Ativan Tab(*)) 0.5 mg PO Q4H PRN PRN Reason: ANXIETY Last Admin: 07/07/16 10:36 Dose: 0.5 mg Morphine Sulfate (Morphine Inj (Syringe)*) 2 mg IV Q4H PRN PRN Reason: PAIN - MILD Last Admin: 07/07/16 01:30 Dose: 2 mg Multivitamins ( Vitamin Tab*) 1 tab PO DAILY [facility] Last Admin: 07/08/16 09:09 Dose: 1 tab Potassium Chloride (Klor Con Er Tab*) 10 meq PO DAILY [facility] Last Admin: 07/08/16 09:08 Dose: 10 meq Pravastatin Sodium (Pravachol (Nf)) 10 mg PO DAILY [facility] PRN Reason: Protocol Last Admin: 07/08/16 09:08 Dose: 10 mg Senna (Senokot Tab*) 2 tab PO BEDTIME PRN PRN Reason: CONSTIPATION Last Admin: 07/06/16 22:00 Dose: 2 tab Tiotropium [place] (Spiriva Cap.Inh*) 1 cap INH DAILY [facility] Last Admin: 07/08/16 08:41 Dose: 1 cap Objective Vital Signs: Temp Pulse Resp BP Pulse Ox 97.8 F 84 18 126/46 100 07/08/16 11:26 07/08/16 11:26 07/08/16 11:26 07/08/16 11:26 07/08/16 11:26 Oxygen Devices in Use Now: Nasal Cannula - 3 liters Appearance: frail, elderly, cachectic, winded talking. Eyes: No Scleral Icterus, PERRLA Ears/Nose/Mouth/Throat: Clear Oropharnyx Neck: Trachea Midline, No Thyroid Enlargement, Masses, - - + mild to moderate JVD, uses accesory muscles to breath. Respiratory: Symmetrical Chest Expansion and Respiratory Effort, - - coarse rales bilaterally left greater than right. Cardiovascular: No Edema, - - irregularly irregular, 3/6 murmur apex, soft murmer USB. Abdominal: NL Sounds; No Tenderness; No Distention - pulsitile liver noted. Extremities: No Edema, No Clubbing, Cyanosis Skin: No Rash or Ulcers - pacer site left unremarkable. Neurological: Alert and Oriented x 3 Laboratory Results: 07/07/16 06:34 07/07/16 06:34 Total Bilirubin 1.30 mg/dL (0.2-1.0) H 07/03/16 03:20 Direct Bilirubin 0.30 mg/dL (0.03-0.18) H 07/03/16 03:20 Indirect Bilirubin 1.0 mg/dL (0.3-1.0) 07/03/16 03:20 AST 21 U/L (13-39) 07/03/16 03:20 ALT 13 U/L (7-52) 07/03/16 03:20 Alkaline Phosphatase 53 U/L (34-104) 07/03/16 03:20 B-Natriuretic Peptide 643 pg/mL (-100) H 07/02/16 23:25 Total Protein 6.4 g/dL (6.4-8.9) 07/03/16 03:20 Albumin 4.1 g/dL (3.2-5.2) 07/03/16 03:20 Globulin 2.3 g/dL (2-4) 07/03/16 03:20 Albumin/Globulin Ratio 1.8 (1-3) 07/03/16 03:20 07/03/16 07/03/16 03:20 08:35 Troponin I 0.05 H* 0.04 H* EKG Data: Monitor: chronic afib. Assessment/Plan 86 year old woman history of bioprosthetic AVR and MR of questionable severity admitted with acute CHF with salt load on top of chronic CHF now improving with medical therapy. Also has anemia (chronic). -I recommend resuming Torsemide 10mg 3 days weekly and adding aldactone 4 days weekly (and no KCl). -I am not recommending CRUZ/evaluation for mitral valve procedure at this time. -I had comprehensive discussions with the patient. She doen't feel she can take care of her who she has cared for her whole life, she can't physically do it. She doesn't want to burden her and her daughters aren't able to care for her, they live out of town. She is amenable to palliative care and understands the goals would be to keep her medically comfortable not extending her life, intubating her. She feels she has lived a long life. I will talk to her daughter Vas today/lenin about the above.
[2016-07-08] MEDS: Acetaminophen TAB* 325 MG PO PRN (17:12)
[2016-07-08] MEDS: Morphine INJ* 2 MG/ML 1 ML SYRINGE IV PRN (22:53)
[2016-07-09] MEDS: Levothyroxine TAB* 25 MCG TAB PO SCH (05:50)
[2016-07-09] MEDS: Heparin VIAL(*) 5000 UNITS/ML VIAL (FIVE THOUSAND) SUBCUT SCH ×3 (05:50→21:59)
[2016-07-09 05:59] LABS: Hematocrit 21 % (35-47); Hemoglobin 7.2 g/dl (12.0-16.0); Mean Corpuscular HGB Conc 34 g/dl (31-36); Mean Corpuscular Hemoglobin 41 pg (27-31); Mean Platelet Volume 8 um3 (7.4-10.4); Red Blood Count 1.77 10^6/ul (4.0-5.4); White Blood Count 6.5 10^3/ul (3.5-10.8)
[2016-07-09 06:00] LABS: Comments Flag Yes; Mean Corpuscular Volume 120 fL (80-97)
[2016-07-09 06:01] LABS: Add Diff/Slide Review? Slide Review Added; Red Cell Distribution Width 22 % (10.5-15)
[2016-07-09 06:22] LABS: Eosinophils % 7 % (0-6); Immature Granulocytes 1 % (0-9); Neutrophil % 65 % (38-83)
[2016-07-09 06:22] LABS: Calcium 8.8 mg/dL (8.6-10.3); EGFR Non-African American 108.9 (>60); Potassium 4.7 mmol/L (3.5-5.0)
[2016-07-09 06:23] LABS: Hypochromasia 1+; Macrocytosis 2+; Polychromasia 1+; Schistocytes 1+; Target Cells 1+
[2016-07-09 06:24] LABS: Add Path Review? YES; Tear Drop Cells 1+
[2016-07-09] MEDS: Budesonide NEB* 0.5 MG/2 ML NEB.SOLN INH SCH ×2 (08:40→20:55)
[2016-07-09] MEDS: Tiotropium CAP.INH* CAP.INH/18 MCG INH SCH (08:41)
[2016-07-09] MEDS: Cyanocobalamin TAB* 500 MCG PO SCH (08:53)
[2016-07-09] MEDS: Diltiazem CD CAP* 240 MG PO SCH (08:53)
[2016-07-09] MEDS: Cholecalciferol TAB* 1000 UNITS PO SCH (08:53)
[2016-07-09] MEDS: Spironolactone TAB* 25 MG PO SCH (08:53)
[2016-07-09] MEDS: Prenatal Vitamin TAB PO SCH (08:53)
[2016-07-09] MEDS: CMC:Pravastatin (NF) 20 MG TAB PO SCH (08:53)
[2016-07-09] MEDS: CMCS: Formoterol 20 MCG/2ML NEB (NF) 10 MCG/ML NEB.SOLN INH SCH ×2 (09:23→20:54)
[2016-07-09] MEDS: Acetaminophen TAB* 325 MG PO PRN (16:25)
[2016-07-09] MEDS ORDERED: Morphine ORAL CONCENTRATE* 5 MG/0.25 ML ORAL.SYRIN SL PRN (17:09)
--- NOTE | 2016-07-09 18:31 | PN ---
Subjective Date of Service: 07/09/16 Interval History: Pt feels well today. Wants to go home, refuses STR Family History: Unchanged from Admission Social History: Unchanged from Admission Past Medical History: Unchanged from Admission Objective Active Medications: Acetaminophen (Tylenol Tab*) 650 mg PO Q6H PRN PRN Reason: pain/fever Last Admin: 07/09/16 16:25 Dose: 650 mg Albuterol (Ventolin Hfa Inhaler*) 2 puff INH Q4H PRN PRN Reason: SOB/WHEEZING Last Admin: 07/09/16 03:44 Dose: 2 inhaler Budesonide (Pulmicort Neb*) 0.5 mg INH BID [facility] Last Admin: 07/09/16 08:40 Dose: 0.5 mg Cholecalciferol (Vitamin D Tab*) 5,000 units PO DAILY [facility] Last Admin: 07/09/16 08:53 Dose: 5,000 units Cyanocobalamin (Vitamin B12 Tab*) 1,000 mcg PO DAILY [facility] Last Admin: 07/09/16 08:53 Dose: 1,000 mcg Diltiazem HCl (Cardizem Cd Cap*) 240 mg PO DAILY [facility] Last Admin: 07/09/16 08:53 Dose: 240 mg Formoterol Fumarate (Perforomist Neb.Soln*(Nf)) 20 mcg INH BID [facility] Last Admin: 07/09/16 09:23 Dose: 20 mcg Guaifenesin (Robitussin*) 5 ml PO Q4H PRN PRN Reason: COUGH Last Admin: 07/08/16 05:25 Dose: 5 ml Heparin Sodium (Porcine) (Heparin Vial(*)) 5,000 units SUBCUT Q8HR [facility] Last Admin: 07/09/16 14:12 Dose: 5,000 units Levothyroxine Sodium (Synthroid Tab*) 25 mcg PO 0600 [facility] Last Admin: 07/09/16 05:50 Dose: 25 mcg Lorazepam (Ativan Tab(*)) 0.5 mg PO Q4H PRN PRN Reason: ANXIETY Last Admin: 07/07/16 10:36 Dose: 0.5 mg Morphine Sulfate (Morphine Inj (Syringe)*) 2 mg IV Q4H PRN PRN Reason: PAIN - MILD Last Admin: 07/08/16 22:53 Dose: 2 mg Morphine Sulfate (Morphine Oral Concentrate*) 1.5 mg SL Q2H PRN PRN Reason: PAIN Multivitamins ( Vitamin Tab*) 1 tab PO DAILY [facility] Last Admin: 07/09/16 08:53 Dose: 1 tab Pravastatin Sodium (Pravachol (Nf)) 10 mg PO DAILY [facility] PRN Reason: Protocol Last Admin: 07/09/16 08:53 Dose: 10 mg Senna (Senokot Tab*) 2 tab PO BEDTIME PRN PRN Reason: CONSTIPATION Last Admin: 07/06/16 22:00 Dose: 2 tab Spironolactone (Aldactone Tab*) 25 mg PO SUTUTHSA [facility] Last Admin: 07/09/16 08:53 Dose: 25 mg Tiotropium [place] (Spiriva Cap.Inh*) 1 cap INH DAILY [facility] Last Admin: 07/09/16 08:41 Dose: 1 cap Torsemide (Demadex*) 10 mg PO MOWEFR [facility] Vital Signs 07/08/16 07/08/16 07/08/16 19:49 20:28 21:45 Temperature 97.1 F Pulse Rate 83 76 Respiratory 18 18 18 Rate Blood Pressure 117/75 (mmHg) O2 Sat by Pulse 100 97 Oximetry 07/08/16 07/08/16 07/09/16 22:53 23:53 00:05 Temperature 98.3 F Pulse Rate 72 Respiratory 18 16 16 Rate Blood Pressure 122/96 (mmHg) O2 Sat by Pulse 100 Oximetry 07/09/16 07/09/16 07/09/16 03:55 07:17 08:00 Temperature 98.5 F 98.1 F Pulse Rate 80 86 Respiratory 18 17 Rate Blood Pressure 123/40 120/41 (mmHg) O2 Sat by Pulse 100 100 Oximetry 07/09/16 07/09/16 07/09/16 08:46 11:21 13:06 Temperature Pulse Rate 73 44 Respiratory 16 18 Rate Blood Pressure 114/56 (mmHg) O2 Sat by Pulse 99 99 90 Oximetry 07/09/16 07/09/16 14:00 14:08 Temperature 98.8 F 98.8 F Pulse Rate 74 81 Respiratory 20 20 Rate Blood Pressure 100/40 100/40 (mmHg) O2 Sat by Pulse 95 93 Oximetry Oxygen Devices in Use Now: Nasal Cannula - 2 liters Appearance: 86 yo F in NAD, AAOx3 Eyes: No Scleral Icterus, PERRLA Ears/Nose/Mouth/Throat: NL Teeth, Lips, Gums, Mucous Membranes Moist Neck: NL Appearance and Movements; NL JVP, Trachea Midline Respiratory: Symmetrical Chest Expansion and Respiratory Effort Cardiovascular: - - irregular, 2/6 OSIRIS at apex Abdominal: NL Sounds; No Tenderness; No Distention, No Hepatosplenomegaly Lymphatic: No Cervical Adenopathy Extremities: No Edema, No Clubbing, Cyanosis Skin: No Nodules or Sclerosis Neurological: Alert and Oriented x 3, NL Muscle Strength and Tone Result Diagrams: 07/09/16 05:38 07/09/16 05:39 Additional Lab and Data: Lab Results 07/02/16 07/02/16 07/02/16 Range/Units 23:25 23:25 23:25 WBC 17.5 H (3.5-10.8) 10^3/ul RBC 2.22 L (4.0-5.4) 10^6/ul Hgb 8.9 L (12.0-16.0) g/dl Hct 27 L (35-47) % MCV 124 H (80-97) fL MCH 40 H (27-31) pg MCHC 33 (31-36) g/dl RDW 24 H (10.5-15) % Plt Count 331 (150-450) 10^3/ul MPV 9 (7.4-10.4) um3 Immature Gran % (Auto) 5 (0-9) % Neut % (Auto) 72.6 (38-83) % Lymph % (Auto) 16.6 L (25-47) % [place] % (Auto) 9.1 H (1-9) % Eos % (Auto) 1.5 (0-6) % Baso % (Auto) 0.2 (0-2) % Absolute Neuts (auto) 12.7 H (1.5-7.7) 10^3/ul Absolute Lymphs (auto) 2.9 (1.0-4.8) 10^3/ul Absolute Monos (auto) 1.6 H (0-0.8) 10^3/ul Absolute Eos (auto) 0.3 (0-0.6) 10^3/ul Absolute Basos (auto) 0 (0-0.2) 10^3/ul Absolute Nucleated RBC 0.30 10^3/ul Neutrophils % 75 (38-83) % Band Neutrophils % 5 (0-8) % Lymphocytes % 11 L (25-47) % Monocytes % 7 (0-13) % Eosinophils % 2 (0-6) % Nucleated RBC % 1.7 Nucleated RBCs/100 WBC 2 H (0-0) Toxic Granulation 1+ Normal RBC Morphology Not Reportable Polychromasia 1+ Macrocytosis 3+ Target Cells 1+ [place] Cells 1+ Elliptocytes 1+ Schistocytes 1+ Hem Pathologist Commnt Pending Patient Temperature ABG pH (7.35-7.45) ABG pCO2 (35-45) mmHg ABG pO2 (80-100) mmHg ABG HCO3 (19-31) mmol/L ABG O2 Saturation (95-98) % ABG Base Excess (-2.0-2.0) Respiration Rate O2 Delivery Device Ventilator Type Vent Mode FiO2 Inspiratory Time PEEP Pressure Support Pressure Control EPAP IPAP BiPAP Sodium 133 (133-145) mmol/L Potassium 4.7 (3.5-5.0) mmol/L Chloride 100 L (101-111) mmol/L Carbon Dioxide 25 (22-32) mmol/L Anion Gap 8 (2-11) mmol/L BUN 25 H (6-24) mg/dL Creatinine 0.88 (0.51-0.95) mg/dL Est GFR ( Amer) 78.0 (>60) Est GFR (Non-Af Amer) 60.6 (>60) BUN/Creatinine Ratio 28.4 H (8-20) Glucose 222 H (70-100) mg/dL Lactic Acid 1.5 (0.5-2.0) mmol/L Calcium 9.3 (8.6-10.3) mg/dL Total Bilirubin 1.10 H (0.2-1.0) mg/dL AST 34 (13-39) U/L ALT 15 (7-52) U/L Alkaline Phosphatase 56 (34-104) U/L Troponin I 0.03 (<0.04) ng/mL B-Natriuretic Peptide ( - 100) pg/mL Total Protein 6.8 (6.4-8.9) g/dL Albumin 4.4 (3.2-5.2) g/dL Globulin 2.4 (2-4) g/dL Albumin/Globulin Ratio 1.8 (1-3) 07/02/16 07/03/16 Range/Units 23:25 00:15 WBC (3.5-10.8) 10^3/ul RBC (4.0-5.4) 10^6/ul Hgb (12.0-16.0) g/dl Hct (35-47) % MCV (80-97) fL MCH (27-31) pg MCHC (31-36) g/dl RDW (10.5-15) % Plt Count (150-450) 10^3/ul MPV (7.4-10.4) um3 Immature Gran % (Auto) (0-9) % Neut % (Auto) (38-83) % Lymph % (Auto) (25-47) % [place] % (Auto) (1-9) % Eos % (Auto) (0-6) % Baso % (Auto) (0-2) % Absolute Neuts (auto) (1.5-7.7) 10^3/ul Absolute Lymphs (auto) (1.0-4.8) 10^3/ul Absolute Monos (auto) (0-0.8) 10^3/ul Absolute Eos (auto) (0-0.6) 10^3/ul Absolute Basos (auto) (0-0.2) 10^3/ul Absolute Nucleated RBC 10^3/ul Neutrophils % (38-83) % Band Neutrophils % (0-8) % Lymphocytes % (25-47) % Monocytes % (0-13) % Eosinophils % (0-6) % Nucleated RBC % Nucleated RBCs/100 WBC (0-0) Toxic Granulation Normal RBC Morphology Polychromasia Macrocytosis Target Cells [place] Cells Elliptocytes Schistocytes Hem Pathologist Commnt Patient Temperature Not Reportable ABG pH 7.38 (7.35-7.45) ABG pCO2 38 (35-45) mmHg ABG pO2 179 H (80-100) mmHg ABG HCO3 23.1 (19-31) mmol/L ABG O2 Saturation 100.1 H (95-98) % ABG Base Excess -2.4 L (-2.0-2.0) Respiration Rate Not Reportable O2 Delivery Device V60 Ventilator Type Not Reportable Vent Mode Not Reportable FiO2 50 Inspiratory Time Not Reportable PEEP Not Reportable Pressure Support Not Reportable Pressure Control Not Reportable EPAP 5 IPAP 10 BiPAP Not Reportable Sodium (133-145) mmol/L Potassium (3.5-5.0) mmol/L Chloride (101-111) mmol/L Carbon Dioxide (22-32) mmol/L Anion Gap (2-11) mmol/L BUN (6-24) mg/dL Creatinine (0.51-0.95) mg/dL Est GFR ( Amer) (>60) Est GFR (Non-Af Amer) (>60) BUN/Creatinine Ratio (8-20) Glucose (70-100) mg/dL Lactic Acid (0.5-2.0) mmol/L Calcium (8.6-10.3) mg/dL Total Bilirubin (0.2-1.0) mg/dL AST (13-39) U/L ALT (7-52) U/L Alkaline Phosphatase (34-104) U/L Troponin I (<0.04) ng/mL B-Natriuretic Peptide 643 H ( - 100) pg/mL Total Protein (6.4-8.9) g/dL Albumin (3.2-5.2) g/dL Globulin (2-4) g/dL Albumin/Globulin Ratio (1-3) Assess/Plan/Problems-Billing Assessment: Mrs. Hernandez is a 86yo F with PMH of Afib, HTN, diastolic CHF, s/p AVR, s/p pacer , MDS, COPD, cardiac arrest x 2, h/o trach/PEG, HLD, TIA, GI bleed, anxiety, depression, who presents with acute hypoxemic respiratory failure secondary to acute CHF exacerbation. - Patient Problems (1) Acute hypoxemic respiratory failure Comment: - Secondary to CHF exacerbation. - Continues to improved, now on nasal cannula 2 liters. -qualifies for 02 at home (2) Acute diastolic CHF (congestive heart failure) Comment: - Secondary to dietary non-compliance in patient with advanced CHF and minimal reserve.. - Echocardiogram showed a hyperdynamic LV, EF>65%, RA/LA severely dilated, with severe TR/MR. - was seen seen by Dr. Oakley on 07/08/16 to discuss CRUZ and MV clipping.Pt is not a candidate for surgery right now. Pt and family are aware. Palliative care consult ordered. (3) Severe mitral regurgitation Comment: - After acute episode is resolved, - considering her age, frailty, and comorbidities pt is appropiatefor Palliative care consultation. (4) COPD (chronic obstructive pulmonary disease) Comment: - Continue inhaled steroids and bronchodilators. (5) MDS (myelodysplastic syndrome) Comment: - Hb is below baseline and she has no signs of bleeding at this time. (6) DVT prophylaxis Comment: - SQ Heparin. (7) Full code status Status and Disposition: Inpatient. Plan to d/c tomorrow home with Juliet. Awaiting Palliative care consult
--- NOTE | 2016-07-09 18:59 | CONS ---
PALLIATIVE CARE CONSULTATION REPORT: DATE OF CONSULT: 07/09/16 PRIMARY CARE PHYSICIAN: Gudelia Holloway MD REQUESTING PHYSICIAN FOR CONSULT: Alana Sharma MD HISTORY OF PRESENT ILLNESS: This is an 86-year-old female with a past medical history of atrial fibrillation, asthma with COPD, severe pulmonary hypertension , and diastolic heart failure, who presented to the emergency room on the and was admitted with shortness of breath and diagnosed with acute decompensated congestive heart failure. The patient was admitted and aggressively diuresed. There was also concern for an asthma exacerbation and was started on steroids and inhalers. Cardiology was involved and there was an ICU consult on the in the evening due to worsening hypoxic respiratory failure requiring BiPAP. The patient was then transferred to the ICU for further care and remained a full code. Dr. Martini initially saw the patient. Her echocardiogram shows severe pulmonary hypertension, knujsilr-nb-zazpeh TR, ejection fraction greater than 65%, moderate- to-severe MR, and cannot exclude severe primary MR, and she has an aortic bioprosthetic valve. The patient was continued to be diuresed and was seen by Dr. Oakley on the for potential discussion of doing a CRUZ to get further evaluation of her mitral valve. Dr. Oakley discussed palliative care options and she is agreeable to this. She does not think CRUZ is indicated at this time due to the risks outweighing the benefits. On my discussion with the patient, she states that she has had a significant amount of weight loss. She has no appetite. She has been having breathing problems with her asthma and does not seem to be aware of the extent of severity of her cardiac problems. According to her history, the patient has had a cardiac arrest, when I asked her this, she states that no, she has never had a cardiac arrest, trach, or PEG tube placed. When discussing further discussion about going home with hospice or her code status, she wanted me to defer to her and to call him to discuss that further that she would rely on him. She denies any shortness of breath, no pain, no issues at this time , other than no appetite. Otherwise, remainder of the review of systems is negative. PAST MEDICAL HISTORY: 1. History of myelodysplastic syndrome. 2. Iron deficiency anemia. 3. History of paroxysmal AFib. 4. Asthma/COPD. 5. History of TIA. 6. Severe pulmonary hypertension. 7. Dfdhkcwo-tl-lmzwdn MR. 8. Cvuvrjya-yi-gqngiu TR. 9. History of diastolic heart failure. 10. History of a GI bleed. PAST SURGICAL HISTORY: Aortic valve replacement with bioprosthetic valve and tricuspid repair in 2010; pacemaker placement, 2011; bilateral total knee replacement. INPATIENT MEDICATIONS: 1. Tylenol 650 mg every 6 hours as needed. 2. Albuterol 2 puffs inhaled q.4 hours as needed. 3. Budesonide 0.5 mg inhaled b.i.d. 4. Cholecalciferol 5000 units daily. 5. Cyanocobalamin 1000 mcg daily. 6. Diltiazem CD 240 daily. 7. Formoterol 20 mcg inhaled b.i.d. 8. Heparin 5000 units subcu t.i.d. 9. Lorazepam 0.5 mg q.4 hours as needed. 10. Levothyroxine 25 mcg daily. 11. Morphine 2 mg IV q.4 hours as needed. 12. Pravastatin 10 mg p.o. daily. 13. vitamin 1 tab p.o. daily. 14. Senna tab 2 tabs at bedtime. 15. Spironolactone 25 mg p.o. Wednesday, Wednesday, , Wednesday. 16. Theotropium inhaler 1 cap inhaled daily. 17. Torsemide 10 mg Wednesday, Wednesday, Wednesday. 18. Guaifenesin 5 mL q.4 hours as needed. ALLERGIES: No known drug allergies. FAMILY HISTORY: Parents in their 50s while in [place], unclear why. SOCIAL HISTORY: The patient was living at home, prior to this ambulating with a walker, relatively independent. 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 No history of tobacco, alcohol, or illicit drug use. Her is her primary healthcare proxy, Dariel Hernandez, and his phone number is [phone], secondary proxy is the daughter. Code status at this time is full code. REVIEW OF SYSTEMS: As mentioned in the HPI. PHYSICAL EXAM: Vitals: Temp 98.8, pulse rate 81, respiratory rate is 20, oxygen saturation 93% on 2 L, blood pressure 100/40. General: Frail, elderly female, in no acute distress. She does have conversational dyspnea. HEENT: Oropharynx: Mucous membranes are dry. Pupils are pinpoint and reactive, anicteric. Head: Normocephalic. Neck: Supple. No lymphadenopathy. Respiratory: Diminished breath sounds. Bilateral rhonchi with expiratory wheezing and prolonged expiratory phase. No increased work of breathing but noted to be conversationally dyspneic. Cardiac: Irregularly irregular rate and rhythm with systolic murmur heard throughout. Abdomen: Soft, nontender, nondistended. Extremities: No clubbing, cyanosis, or edema. Neurologic: Alert and oriented x3. No focal neurologic deficits. LABORATORY DATA: White count 6.5, hemoglobin 7.2, hematocrit 21, platelets 227. Sodium 132, potassium 4.7, chloride 98, bicarb 30, BUN 9, creatinine 0.53. ASSESSMENT AND PLAN: This is an 86-year-old female with a past medical history of pulmonary hypertension, atrial fibrillation, and diastolic heart failure, who was admitted on the with acute decompensated diastolic heart failure with transfer to the ICU for respiratory distress and followed by the stock raiser service, Cardiology was also involved. There was concern about her mitral valve. Dr. Oakley saw her yesterday and did not think that a CRUZ was appropriate and recommended palliative care. Based on the patient's severe pulmonary hypertension with comorbidities of lmnsesxm-bn-gzewkn TR and MR with her history of asthma and atrial fibrillation, she is a candidate and eligible for hospice. When discussing with her, she defers all her decisions to her . When I called the , he wanted me to talk to the daughter. The daughter wanted to discuss this with the family before making decision regarding enrolment in hospice and also discussion regarding her code status. I spoke with the family regarding my concern, the patient would not survive if she required CPR or intubation. They are going to follow up tomorrow with answers regarding the MOLST form and if discharge home with hospice is something that they are interested. They have [facility] 24-hour care at home, which is wonderful, but I discussed the additional services that hospice would provide that [facility] does not do with the daughter. Thank you for this consultation. I will talk with Abbie to follow up with them as well tomorrow regarding disposition planning. PATIENT TIME: Greater than 90 minutes was spent doing the consultation; more than half the time was spent in direct patient contact. CC: Gudelia Holloway MD* [id number]/[facility] #: [id number] SOUMYA
[2016-07-09] MEDS: LORazepam TAB(*) 0.5 MG PO PRN (23:31)
[2016-07-10] MEDS: Levothyroxine TAB* 25 MCG TAB PO SCH (05:58)
[2016-07-10] MEDS: Heparin VIAL(*) 5000 UNITS/ML VIAL (FIVE THOUSAND) SUBCUT SCH ×3 (05:58→21:53)
[2016-07-10] MEDS: Budesonide NEB* 0.5 MG/2 ML NEB.SOLN INH SCH ×2 (07:35→19:59)
[2016-07-10] MEDS: Tiotropium CAP.INH* CAP.INH/18 MCG INH SCH (07:35)
[2016-07-10] MEDS: CMCS: Formoterol 20 MCG/2ML NEB (NF) 10 MCG/ML NEB.SOLN INH SCH ×2 (07:35→19:58)
[2016-07-10] MEDS: CMC:Pravastatin (NF) 20 MG TAB PO SCH (10:21)
[2016-07-10] MEDS: Prenatal Vitamin TAB PO SCH (10:21)
[2016-07-10] MEDS: Cholecalciferol TAB* 1000 UNITS PO SCH (10:21)
[2016-07-10] MEDS: Cyanocobalamin TAB* 500 MCG PO SCH (10:23)
[2016-07-10] MEDS: Diltiazem CD CAP* 240 MG PO SCH (10:24)
[2016-07-10] MEDS: Torsemide TAB* 20 MG PO SCH (10:33)
[2016-07-10] MEDS: Morphine INJ* 2 MG/ML 1 ML SYRINGE IV PRN (21:44)
[2016-07-10] MEDS: Acetaminophen TAB* 325 MG PO PRN (21:52)
[2016-07-10] MEDS: diPHENhydraMINE PO* 25 MG PO PRN (23:28)
--- NOTE | 2016-07-11 03:41 | DS ---
UPDATED ADDENDUM INCLUDED ON THIS REPORT DISCHARGE SUMMARY: DATE OF ADMISSION: 07/03/16 DATE OF DISCHARGE: 07/10/16 UPDATED DATE OF DISCHARGE: 07/13/16 The patient is being discharged home. PRIMARY CARE PROVIDER: Dr. Holloway. DISCHARGE DIAGNOSES: 1. Acute respiratory failure secondary to acute diastolic congestive heart failure. The patient was placed on noninvasive ventilation in the ICU transiently. 2. Hypoxemia. The patient is going to be discharged home on 2 L of oxygen continuously. 3. Severe mitral regurgitation. The patient was deemed not to be at this current point a surgical candidate or if her functional capacity improves, she may be able to be evaluated for CRUZ and further evaluation of her mitral valve. 4. Worsening anemia in a patient with history of myelodysplastic syndrome. SECONDARY DIAGNOSES: 1. Atrial fibrillation. 2. Hypertension. 3. Chronic obstructive pulmonary disease. 4. History of cardiac arrest. 5. Tracheostomy. 6. History of PEG tube in the past. 7. Osteoarthritis. 8. Osteoporosis. 9. Dyslipidemia. 10. Transient ischemic attack. 11. History of GI bleed. The patient has no anticoagulation for cardioembolic stroke prevention with her atrial fibrillation due to that. 12. Depression. 13. Hyperlipidemia. 14. Aortic valve replacement. 15. Bioprosthetic valve. 16. Tricuspid valve repair in [facility] in 2010. 17. Pacemaker placement in 2011. 18. Bilateral knee replacement surgery. MEDICATIONS AT DISCHARGE: Include: 1. Calcium citrate and vitamin D 1 tablet daily. 2. Albuterol inhaler 2 inhalations every 4 hours p.r.n. 3. Pulmicort nebulizer 0.5 mg b.i.d. 4. Vitamin D3 5000 units daily. 5. Vitamin B12 1000 mcg daily. 6. Diltiazem CD 240 mg daily. 7. Flaxseed oil 1000 mg daily. 8. Folic acid 800 mg daily. 9. Formoterol nebulizer 200 mcg b.i.d. 10. Glucosamine 1 chewable daily. 11. Lorazepam 0.5 mg 1 tablet every 6 hours for anxiety. The patient was dispensed 20 tablets prescription. I-STOP was checked. She did not have any prescriptions of controlled substances in the past 6 months. 12. Levothyroxine 25 mcg daily. 13. Lysine 500 mg daily. 14. Magnesium citrate 200 mg b.i.d. 15. Multivitamin 1 tablet daily. 16. Pravachol 10 mg daily. 17. Aldactone 25 mg Sundays, Tuesdays, , and Saturdays only. 18. Spiriva 1 inhalation daily. 19. Torsemide 10 mg Mondays, Wednesdays, and Fridays. 20. Astragalus root 2 capsules daily. CONSULTATIONS DURING THE HOSPITAL STAY: Included Dr. Martini from Cardiology; Dr. Vasquez, the senior quality assurance specialist; Dr. Oakley, Cardiology. LABORATORY DATA/STUDIES: Performed during the hospital stay include: On , white blood cell count of 6.5, hemoglobin of 7.2, hematocrit of 21, MCV of 120, and platelets of 227. Sodium was 132, potassium 4.7, chloride 98, carbon dioxide 30, BUN 9, creatinine 0.53. Transthoracic echocardiogram obtained on 07/03/16 showed normal EF with mild concentric LVH at 65%. Pacemaker wire was visualized in right ventricle. The right atrial cavity size was severely dilated. Moderate to severe tricuspid regurgitation. Evidence of severe pulmonary hypertension. Moderate mitral annular calcification. Aortic bioprosthesis peak velocity and gradient are higher than prior. Visualized leaflet portions appear to have been adequately, although cannot exclude some degree of obstruction. There was moderate to severe mitral regurgitation that is eccentric and posterior directed and may be underestimated in severity. There was some degree of mitral valve prolapse. Cannot exclude severe primary mitral regurgitation. Compared to prior study from 2016, tricuspid regurgitation and pulmonary hypertension are worse. Again was noted severe primary mitral regurgitation. HOSPITALIZATION COURSE: Ms. Hernandez is an 86-year-old female with above- mentioned chronic medical conditions who was in chronic atrial fibrillation and not on anticoagulation due to history of bleeding who presented complaining of shortness of breath on 07/03/16. The patient was in respiratory distress and hypoxemia and required noninvasive positive-pressure ventilation in the ICU. The senior bioinformatics specialist was consulted and thankfully so, the patient did not require intubation. She was noted to have severe mitral regurgitation and exacerbation of her chronic diastolic CHF. Cardiology was consulted and added Aldactone to her medications for CHF. The patient gradually diuresed and got better. She had severe mitral regurgitation, which appears that may have gotten worse comparing with prior. She also was noted to have worsening severe pulmonary hypertension. Dr. Martini as well as Dr. Oakley saw the patient in consultation from Cardiology. Dr. Oakley, who is also the patient's primary porcelain enamel installer as an outpatient, did not recommend further diagnostic evaluation for CRUZ and mitral valve replacement at this point due to the patient's poor overall status and deconditioning. Dr. Oakley spoke with the patient and recommended palliative care and possibility of hospice. The patient was seen by Dr. Marin in consultation, but could not decide what her wishes were. She continued on to defer to her , who also had problems with memory. Finally , her daughter, Billy, their phone number is [phone], informed me that the patient is not interested in hospice for the time being. The patient also had intermittent hemoptysis during the hospital stay, which was intermittent, scant, bright red and chronic most likely due to CHF. She was informed that most likely she is in the end-of-life stage, but once again, the family was not interested in the hospice. They were also strongly recommended for the patient to either have 24 x 7 care or be placed in a fpc due to her overall deconditioning. The family had long-term care insurance and asked [facility], a private home care agency, to be involved. [facility] evaluated the patient the day prior to discharge and are going to provide care at discharge. The patient also was evaluated by Physical Therapy and was ambulated well on 2 L of oxygen without a walker. At this point, the prognosis is very guarded. The patient wishes to go home. She understands that her CHF and mitral regurgitation as well as severe pulmonary hypertension most likely will progress in the future. Please also note that the patient's hemoglobin was down to 7 during the hospital stay. The patient has a history of myelodysplastic syndrome and had been transfused in the past. Due to her respiratory failure and hypoxemia, it was decided for the patient to not undergo transfusion and not to worsen her CHF , but to continue to monitor. The patient most likely will be monitored as outpatient in regards to that unless she decides to go to outpatient hospice. The patient's family was given information about hospice in case they change their mind and wanted to sign in for outpatient hospice. If not, the family is recommended to follow up with the patient's primary care provider, Dr. Holloway, within the next 4 to 7 days. PHYSICAL EXAMINATION: At the time of discharge, blood pressure of 125/38, heart rate of 91 and irregularly irregular, respiratory rate 18, oxygen saturation 92% on 2 L of oxygen nasal cannula, temperature of 98.3. General: The patient is a very pleasant 86-year-old female, who is in no acute distress. The patient is alert and oriented x3, very poor short-term memory. HEENT: Head is atraumatic, normocephalic. Eyes: Pupils equal and reactive to light and accommodation. Oropharynx clear. Mucosa moist. Neck: Supple. No JVD. No bruits bilaterally. Respiratory: Distended breath sounds bilaterally with bibasilar crackles. Cardiovascular: Irregularly irregular rhythm with 2/6 systolic ejection murmur noted on auscultation of the apex. Abdomen: Soft, nontender. Bowel sounds present in all 4 quadrants. Extremities: There is no edema. Pulses +2 bilaterally. No clubbing or cyanosis. Neuro Evaluation: Poor short-term memory. Cranial nerves II through XII grossly intact. Motor strength is 5/5 bilaterally. Please note this is a short summary of the patient's hospital stay. Please refer to further medical records for details. TIME SPENT: Approximately 40 minutes were spent on the patient's discharge. ADDENDUM TO ORIGINAL DISCHARGE SUMMARY DICTATED ON 07/10/16: Please note that from the dictation of the last discharge summary on 07/10/16, the patient was ready for discharge, but the family was unable to take her home due to inability for the private home care agency to be able to take care of the patient over the weekend. The family appealed the patient's discharge and the patient stayed over the week-end under my care. During the past 2 days, the patient's hemoglobin continues to be in the 7's range. She has history of myelofibrosis and that is a slight worsening from her chronic anemia. At this point, it was decided for the patient to be transfused 1 unit of packed red blood cells. She had been transfused in the past for her myelofibrosis also. The patient tolerated the transfusion well and her repeat hemoglobin was up to 8.9 the day prior to discharge. The patient also had atrial fibrillation that is chronic with the heart rate up to the 130s when the patient was changing position or going from the bed to chair. At that point, the patient was placed on digoxin and she is being discharged on digoxin at 0.125 mg daily. Recommendation is for the patient to check her digoxin level in approximately 2 days with the report to be sent to Dr. Oakley and Dr. Holloway. Please note the medications on discharge are unchanged apart from the addition of the digoxin at 0.125 mg daily. The patient is continued on 2 L of oxygen at all times. The patient's last laboratory values obtained on 07/12/16 show white blood cell count 15.7, hemoglobin of 8.9, hematocrit of 27, and platelets of 241. On 07/09/16, sodium of 132, potassium 4.7, chloride 98, carbon dioxide 30, BUN 9 , creatinine 0.53. PHYSICAL EXAM AT THE TIME OF DISCHARGE: Blood pressure 140/53, heart rate of 93 and irregularly irregular, respiratory rate 20, oxygen saturation 95% on 2 L of oxygen nasal cannula. General: The patient is a very pleasant 86-year-old female, who is in no acute distress. The patient has poor short-term memory, but she is alert and oriented x3. HEENT: Head atraumatic, normocephalic. Eyes : Pupils equal, reactive to light and accommodation. Oropharynx clear. Mucosa moist. Neck: Supple. No JVD. No bruits bilaterally. Cardiovascular: Irregularly irregular rhythm with 2/6 systolic ejection murmur noted on the auscultation of the apex. Respiratory: Clear to auscultation bilaterally. Abdomen: Soft, nontender. Bowel sounds present in all 4 quadrants. Extremities : There is no edema. Pulses 2+ bilaterally. No clubbing or cyanosis. Neuro evaluation: Nonfocal. Speech is clear. Cranial nerves II through XII grossly intact. Motor strength is 5/5 bilaterally. Please note this is an addendum to the discharge summary originally dictated on 07/10/16. CC: Dr. Holloway; Dr. Damon; Dr. Steel; Dr. Oakley; Dr. Martini; Dr. Marin * [id number]/[facility] #: [id number]- [id number] #: [id number]
[2016-07-11] MEDS: Levothyroxine TAB* 25 MCG TAB PO SCH (05:27)
[2016-07-11] MEDS: Heparin VIAL(*) 5000 UNITS/ML VIAL (FIVE THOUSAND) SUBCUT SCH (05:28)
[2016-07-11] MEDS: Budesonide NEB* 0.5 MG/2 ML NEB.SOLN INH SCH ×2 (08:25→19:55)
[2016-07-11] MEDS: CMCS: Formoterol 20 MCG/2ML NEB (NF) 10 MCG/ML NEB.SOLN INH SCH ×2 (08:25→19:55)
[2016-07-11] MEDS: Tiotropium CAP.INH* CAP.INH/18 MCG INH SCH (08:25)
[2016-07-11] MEDS: Cholecalciferol TAB* 1000 UNITS PO SCH (09:07)
[2016-07-11] MEDS: Prenatal Vitamin TAB PO SCH (09:08)
[2016-07-11] MEDS: Diltiazem CD CAP* 240 MG PO SCH (09:08)
[2016-07-11] MEDS: Cyanocobalamin TAB* 500 MCG PO SCH (09:08)
[2016-07-11] MEDS: Spironolactone TAB* 25 MG PO SCH (09:08)
[2016-07-11] MEDS: CMC:Pravastatin (NF) 20 MG TAB PO SCH (09:08)
[2016-07-11 11:20] LABS: Hematocrit 23 % (35-47); Hemoglobin 7.7 g/dl (12.0-16.0); Mean Corpuscular HGB Conc 33 g/dl (31-36); Mean Corpuscular Hemoglobin 40 pg (27-31); Mean Platelet Volume 9 um3 (7.4-10.4); Red Blood Count 1.92 10^6/ul (4.0-5.4); Red Cell Distribution Width 22 % (10.5-15); White Blood Count 15.4 10^3/ul (3.5-10.8)
[2016-07-11 11:28] LABS: Comments Flag Yes
[2016-07-11 11:29] LABS: Add Diff/Slide Review? Manual Diff Added; Mean Corpuscular Volume 121 fL (80-97)
[2016-07-11] MEDS ORDERED: Furosemide IV* 10 MG/ML 10 ML VIAL (100 MG) IV ONE (11:53)
[2016-07-11 11:58] LABS: Hypochromasia 1+; Immature Granulocytes 2 % (0-9); Macrocytosis 2+; Myelocytes % 1 % (0-1); Neutrophil % 80 % (38-83); Reactive Lymph % 1 % (0-6); Toxic Granulation 2+
[2016-07-11 11:59] LABS: Add Path Review? YES
--- NOTE | 2016-07-11 12:01 | PN ---
Subjective Date of Service: 07/11/16 Interval History: Pt continues to cough up scant bright red blood. Otherwise feels unchanged. MAJANO persists Family History: Unchanged from Admission Social History: Unchanged from Admission Past Medical History: Unchanged from Admission Objective Active Medications: Acetaminophen (Tylenol Tab*) 650 mg PO Q6H PRN PRN Reason: pain/fever Last Admin: 07/10/16 21:52 Dose: 650 mg Albuterol (Ventolin Hfa Inhaler*) 2 puff INH Q4H PRN PRN Reason: SOB/WHEEZING Last Admin: 07/09/16 03:44 Dose: 2 inhaler Budesonide (Pulmicort Neb*) 0.5 mg INH BID [facility] Last Admin: 07/11/16 08:25 Dose: 0.5 mg Cholecalciferol (Vitamin D Tab*) 5,000 units PO DAILY [facility] Last Admin: 07/11/16 09:07 Dose: 5,000 units Cyanocobalamin (Vitamin B12 Tab*) 1,000 mcg PO DAILY [facility] Last Admin: 07/11/16 09:08 Dose: 1,000 mcg Diltiazem HCl (Cardizem Cd Cap*) 240 mg PO DAILY [facility] Last Admin: 07/11/16 09:08 Dose: 240 mg Diphenhydramine HCl (Benadryl Po*) 25 mg PO BEDTIME PRN PRN Reason: SLEEP Last Admin: 07/10/16 23:28 Dose: 25 mg Formoterol Fumarate (Perforomist Neb.Soln*(Nf)) 20 mcg INH BID [facility] Last Admin: 07/11/16 08:25 Dose: 20 mcg Furosemide (Lasix Iv*) 20 mg IV ONCE ONE Stop: 07/11/16 11:54 Guaifenesin (Robitussin*) 5 ml PO Q4H PRN PRN Reason: COUGH Last Admin: 07/08/16 05:25 Dose: 5 ml Heparin Sodium (Porcine) (Heparin Vial(*)) 5,000 units SUBCUT Q8HR [facility] Last Admin: 07/11/16 05:28 Dose: 5,000 units Levothyroxine Sodium (Synthroid Tab*) 25 mcg PO 0600 [facility] Last Admin: 07/11/16 05:27 Dose: 25 mcg Morphine Sulfate (Morphine Inj (Syringe)*) 2 mg IV Q4H PRN PRN Reason: PAIN - MILD Last Admin: 07/10/16 21:44 Dose: 2 mg Morphine Sulfate (Morphine Oral Concentrate*) 1.5 mg SL Q2H PRN PRN Reason: PAIN Multivitamins ( Vitamin Tab*) 1 tab PO DAILY [facility] Last Admin: 07/11/16 09:08 Dose: 1 tab Pravastatin Sodium (Pravachol (Nf)) 10 mg PO DAILY [facility] PRN Reason: Protocol Last Admin: 07/11/16 09:08 Dose: 10 mg Senna (Senokot Tab*) 2 tab PO BEDTIME PRN PRN Reason: CONSTIPATION Last Admin: 07/06/16 22:00 Dose: 2 tab Spironolactone (Aldactone Tab*) 25 mg PO SUTUTHSA [facility] Last Admin: 07/11/16 09:08 Dose: 25 mg Tiotropium [place] (Spiriva Cap.Inh*) 1 cap INH DAILY [facility] Last Admin: 07/11/16 08:25 Dose: 1 cap Torsemide (Demadex*) 10 mg PO MOWEFR [facility] Last Admin: 07/10/16 10:33 Dose: 10 mg Vital Signs 07/10/16 07/10/16 07/10/16 12:05 16:18 19:31 Temperature 98.4 F 98.4 F 98.7 F Pulse Rate 106 92 82 Respiratory 16 20 20 Rate Blood Pressure 131/57 106/37 118/32 (mmHg) O2 Sat by Pulse 94 95 Oximetry 07/10/16 07/10/16 07/10/16 20:00 20:03 21:44 Temperature Pulse Rate 89 Respiratory 18 18 Rate Blood Pressure (mmHg) O2 Sat by Pulse 99 Oximetry 07/10/16 07/10/16 07/11/16 23:28 23:35 04:12 Temperature 97.5 F Pulse Rate 77 65 Respiratory 16 16 16 Rate Blood Pressure 109/42 123/37 (mmHg) O2 Sat by Pulse 91 92 Oximetry 07/11/16 07/11/16 07/11/16 04:31 07:21 07:38 Temperature 98.7 F 98.6 F Pulse Rate 116 Respiratory 18 18 Rate Blood Pressure 103/42 (mmHg) O2 Sat by Pulse 100 Oximetry 07/11/16 07/11/16 08:30 11:47 Temperature 98.3 F Pulse Rate 96 156 Respiratory 20 16 Rate Blood Pressure 107/32 (mmHg) O2 Sat by Pulse 96 96 Oximetry Oxygen Devices in Use Now: Nasal Cannula - 1L Appearance: 86 yo F in nAD, aAOx3, poor short term memory Eyes: No Scleral Icterus, PERRLA Ears/Nose/Mouth/Throat: NL Teeth, Lips, Gums, Mucous Membranes Moist Neck: NL Appearance and Movements; NL JVP, Trachea Midline Respiratory: Symmetrical Chest Expansion and Respiratory Effort, - - RLL dry crackles Cardiovascular: - - irregular, tachy, 2/6 OSIRIS at apex Abdominal: NL Sounds; No Tenderness; No Distention, No Hepatosplenomegaly Lymphatic: No Cervical Adenopathy Extremities: No Edema, No Clubbing, Cyanosis Skin: No Rash or Ulcers, No Nodules or Sclerosis Neurological: Alert and Oriented x 3, NL Muscle Strength and Tone Result Diagrams: 07/11/16 11:09 07/09/16 05:39 Additional Lab and Data: Lab Results 07/02/16 07/02/16 07/02/16 Range/Units 23:25 23:25 23:25 WBC 17.5 H (3.5-10.8) 10^3/ul RBC 2.22 L (4.0-5.4) 10^6/ul Hgb 8.9 L (12.0-16.0) g/dl Hct 27 L (35-47) % MCV 124 H (80-97) fL MCH 40 H (27-31) pg MCHC 33 (31-36) g/dl RDW 24 H (10.5-15) % Plt Count 331 (150-450) 10^3/ul MPV 9 (7.4-10.4) um3 Immature Gran % (Auto) 5 (0-9) % Neut % (Auto) 72.6 (38-83) % Lymph % (Auto) 16.6 L (25-47) % [place] % (Auto) 9.1 H (1-9) % Eos % (Auto) 1.5 (0-6) % Baso % (Auto) 0.2 (0-2) % Absolute Neuts (auto) 12.7 H (1.5-7.7) 10^3/ul Absolute Lymphs (auto) 2.9 (1.0-4.8) 10^3/ul Absolute Monos (auto) 1.6 H (0-0.8) 10^3/ul Absolute Eos (auto) 0.3 (0-0.6) 10^3/ul Absolute Basos (auto) 0 (0-0.2) 10^3/ul Absolute Nucleated RBC 0.30 10^3/ul Neutrophils % 75 (38-83) % Band Neutrophils % 5 (0-8) % Lymphocytes % 11 L (25-47) % Monocytes % 7 (0-13) % Eosinophils % 2 (0-6) % Nucleated RBC % 1.7 Nucleated RBCs/100 WBC 2 H (0-0) Toxic Granulation 1+ Normal RBC Morphology Not Reportable Polychromasia 1+ Macrocytosis 3+ Target Cells 1+ Alicia Cells 1+ Elliptocytes 1+ Schistocytes 1+ Hem Pathologist Commnt Pending Patient Temperature ABG pH (7.35-7.45) ABG pCO2 (35-45) mmHg ABG pO2 (80-100) mmHg ABG HCO3 (19-31) mmol/L ABG O2 Saturation (95-98) % ABG Base Excess (-2.0-2.0) Respiration Rate O2 Delivery Device Ventilator Type Vent Mode FiO2 Inspiratory Time PEEP Pressure Support Pressure Control EPAP IPAP BiPAP Sodium 133 (133-145) mmol/L Potassium 4.7 (3.5-5.0) mmol/L Chloride 100 L (101-111) mmol/L Carbon Dioxide 25 (22-32) mmol/L Anion Gap 8 (2-11) mmol/L BUN 25 H (6-24) mg/dL Creatinine 0.88 (0.51-0.95) mg/dL Est GFR ( Amer) 78.0 (>60) Est GFR (Non-Af Amer) 60.6 (>60) BUN/Creatinine Ratio 28.4 H (8-20) Glucose 222 H (70-100) mg/dL Lactic Acid 1.5 (0.5-2.0) mmol/L Calcium 9.3 (8.6-10.3) mg/dL Total Bilirubin 1.10 H (0.2-1.0) mg/dL AST 34 (13-39) U/L ALT 15 (7-52) U/L Alkaline Phosphatase 56 (34-104) U/L Troponin I 0.03 (<0.04) ng/mL B-Natriuretic Peptide ( - 100) pg/mL Total Protein 6.8 (6.4-8.9) g/dL Albumin 4.4 (3.2-5.2) g/dL Globulin 2.4 (2-4) g/dL Albumin/Globulin Ratio 1.8 (1-3) 07/02/16 07/03/16 Range/Units 23:25 00:15 WBC (3.5-10.8) 10^3/ul RBC (4.0-5.4) 10^6/ul Hgb (12.0-16.0) g/dl Hct (35-47) % MCV (80-97) fL MCH (27-31) pg MCHC (31-36) g/dl RDW (10.5-15) % Plt Count (150-450) 10^3/ul MPV (7.4-10.4) um3 Immature Gran % (Auto) (0-9) % Neut % (Auto) (38-83) % Lymph % (Auto) (25-47) % [place] % (Auto) (1-9) % Eos % (Auto) (0-6) % Baso % (Auto) (0-2) % Absolute Neuts (auto) (1.5-7.7) 10^3/ul Absolute Lymphs (auto) (1.0-4.8) 10^3/ul Absolute Monos (auto) (0-0.8) 10^3/ul Absolute Eos (auto) (0-0.6) 10^3/ul Absolute Basos (auto) (0-0.2) 10^3/ul Absolute Nucleated RBC 10^3/ul Neutrophils % (38-83) % Band Neutrophils % (0-8) % Lymphocytes % (25-47) % Monocytes % (0-13) % Eosinophils % (0-6) % Nucleated RBC % Nucleated RBCs/100 WBC (0-0) Toxic Granulation Normal RBC Morphology Polychromasia Macrocytosis Target Cells Alicia Cells Elliptocytes Schistocytes Hem Pathologist Commnt Patient Temperature Not Reportable ABG pH 7.38 (7.35-7.45) ABG pCO2 38 (35-45) mmHg ABG pO2 179 H (80-100) mmHg ABG HCO3 23.1 (19-31) mmol/L ABG O2 Saturation 100.1 H (95-98) % ABG Base Excess -2.4 L (-2.0-2.0) Respiration Rate Not Reportable O2 Delivery Device V60 Ventilator Type Not Reportable Vent Mode Not Reportable FiO2 50 Inspiratory Time Not Reportable PEEP Not Reportable Pressure Support Not Reportable Pressure Control Not Reportable EPAP 5 IPAP 10 BiPAP Not Reportable Sodium (133-145) mmol/L Potassium (3.5-5.0) mmol/L Chloride (101-111) mmol/L Carbon Dioxide (22-32) mmol/L Anion Gap (2-11) mmol/L BUN (6-24) mg/dL Creatinine (0.51-0.95) mg/dL Est GFR ( Amer) (>60) Est GFR (Non-Af Amer) (>60) BUN/Creatinine Ratio (8-20) Glucose (70-100) mg/dL Lactic Acid (0.5-2.0) mmol/L Calcium (8.6-10.3) mg/dL Total Bilirubin (0.2-1.0) mg/dL AST (13-39) U/L ALT (7-52) U/L Alkaline Phosphatase (34-104) U/L Troponin I (<0.04) ng/mL B-Natriuretic Peptide 643 H ( - 100) pg/mL Total Protein (6.4-8.9) g/dL Albumin (3.2-5.2) g/dL Globulin (2-4) g/dL Albumin/Globulin Ratio (1-3) Assess/Plan/Problems-Billing Assessment: Mrs. Hernandez is a 86yo F with PMH of Afib, HTN, diastolic CHF, s/p AVR, s/p pacer , MDS, COPD, cardiac arrest x 2, h/o trach/PEG, HLD, TIA, GI bleed, anxiety, depression, who presents with acute hypoxemic respiratory failure secondary to acute CHF exacerbation. - Patient Problems (1) Acute hypoxemic respiratory failure Comment: - Secondary to CHF exacerbation. - Continues to improve, -qualifies for 02 at home (2) Acute diastolic CHF (congestive heart failure) Comment: - Secondary to dietary non-compliance in patient with advanced CHF and minimal reserve.. - Echocardiogram showed a hyperdynamic LV, EF>65%, RA/LA severely dilated, with severe TR/MR. - was seen seen by Dr. Oakley on 07/08/16 to discuss CRUZ and MV clipping. Pt is not a candidate for surgery right now. Pt and family are aware. Palliative care consult done-family not interested in hospice services right now, although pt is eligible for the benefit. (3) Severe mitral regurgitation Comment: - After acute episode is resolved, - considering her age, frailty, and comorbidities pt is appropiate for palliative care/hospice, but family declined (4) COPD (chronic obstructive pulmonary disease) Comment: - Continue inhaled steroids and bronchodilators. (5) MDS (myelodysplastic syndrome) Comment: - Hb is below baseline and she has no signs of bleeding at this time. - will slowly teansfuse 1 U PRBC followed by a dose of Lasix today (6) Hemoptysis Comment: suspect due to CHF, had been ongoing for days. Very scant Will d/c DVT prophylaxis heparin (7) Full code status (8) DVT prophylaxis Comment: - SQ Heparin discontinued due to hemoptysis. SCD's Status and Disposition: Inpatient. Discharge on 07/10/16 was appealed by family since they were unable to arrange Arie's help on the weekend.
[2016-07-11] MEDS ORDERED: Docusate CAP* 100 MG PO PRN (12:48)
[2016-07-11] MEDS ORDERED: Magnesium Hydroxide LIQ* 30 ML UDC PO ONE (12:49)
[2016-07-11] MEDS: Acetaminophen TAB* 325 MG PO PRN (22:10)
[2016-07-11] MEDS: Senna TAB PO PRN (22:20)
[2016-07-11] MEDS: diPHENhydraMINE PO* 25 MG PO PRN (22:21)
[2016-07-12] MEDS: Levothyroxine TAB* 25 MCG TAB PO SCH (05:05)
[2016-07-12] MEDS: Acetaminophen TAB* 325 MG PO PRN (07:34)
[2016-07-12] MEDS: Diltiazem CD CAP* 240 MG PO SCH (07:34)
[2016-07-12] MEDS: Cholecalciferol TAB* 1000 UNITS PO SCH (07:34)
[2016-07-12] MEDS: Prenatal Vitamin TAB PO SCH (07:34)
[2016-07-12] MEDS: Cyanocobalamin TAB* 500 MCG PO SCH (07:35)
[2016-07-12] MEDS: CMC:Pravastatin (NF) 20 MG TAB PO SCH (07:35)
[2016-07-12] MEDS ORDERED: Digoxin IV* 0.5 MG/2 ML AMP (0.25 MG/ML) IV SLOW PU ONE (08:29)
[2016-07-12] MEDS: Tiotropium CAP.INH* CAP.INH/18 MCG INH SCH (08:44)
[2016-07-12] MEDS: Budesonide NEB* 0.5 MG/2 ML NEB.SOLN INH SCH ×2 (08:46→20:13)
[2016-07-12] MEDS: CMCS: Formoterol 20 MCG/2ML NEB (NF) 10 MCG/ML NEB.SOLN INH SCH ×2 (08:46→20:13)
[2016-07-12] MEDS: Spironolactone TAB* 25 MG PO SCH (09:23)
[2016-07-12 12:07] LABS: Hematocrit 27 % (35-47); Hemoglobin 8.9 g/dl (12.0-16.0); Mean Corpuscular HGB Conc 33 g/dl (31-36); Mean Corpuscular Hemoglobin 37 pg (27-31); Mean Corpuscular Volume 112 fL (80-97); Mean Platelet Volume 9 um3 (7.4-10.4); Red Blood Count 2.41 10^6/ul (4.0-5.4); Red Cell Distribution Width 30 % (10.5-15); White Blood Count 15.7 10^3/ul (3.5-10.8)
[2016-07-12 12:08] LABS: Comments Flag Yes
--- NOTE | 2016-07-12 14:57 | PN ---
Subjective Date of Service: 07/12/16 Interval History: Pt offers no complaints. did not notice blood in her sputum today Family History: Unchanged from Admission Social History: Unchanged from Admission Past Medical History: Unchanged from Admission Objective Active Medications: Acetaminophen (Tylenol Tab*) 650 mg PO Q6H PRN PRN Reason: pain/fever Last Admin: 07/12/16 07:34 Dose: 650 mg Albuterol (Ventolin Hfa Inhaler*) 2 puff INH Q4H PRN PRN Reason: SOB/WHEEZING Last Admin: 07/09/16 03:44 Dose: 2 inhaler Budesonide (Pulmicort Neb*) 0.5 mg INH BID [facility] Last Admin: 07/12/16 08:46 Dose: 0.5 mg Cholecalciferol (Vitamin D Tab*) 5,000 units PO DAILY [facility] Last Admin: 07/12/16 07:34 Dose: 5,000 units Cyanocobalamin (Vitamin B12 Tab*) 1,000 mcg PO DAILY [facility] Last Admin: 07/12/16 07:35 Dose: 1,000 mcg Digoxin (Lanoxin Tab*) 0.25 mg PO 1700 [facility] Diltiazem HCl (Cardizem Cd Cap*) 240 mg PO DAILY [facility] Last Admin: 07/12/16 07:34 Dose: 240 mg Diphenhydramine HCl (Benadryl Po*) 25 mg PO BEDTIME PRN PRN Reason: SLEEP Last Admin: 07/11/16 22:21 Dose: 25 mg Docusate Sodium (Colace Cap*) 100 mg PO BID PRN PRN Reason: CONSTIPATION Last Admin: 07/11/16 13:29 Dose: 100 mg Formoterol Fumarate (Perforomist Neb.Soln*(Nf)) 20 mcg INH BID [facility] Last Admin: 07/12/16 08:46 Dose: 20 mcg Guaifenesin (Robitussin*) 5 ml PO Q4H PRN PRN Reason: COUGH Last Admin: 07/08/16 05:25 Dose: 5 ml Levothyroxine Sodium (Synthroid Tab*) 25 mcg PO 0600 [facility] Last Admin: 07/12/16 05:05 Dose: 25 mcg Morphine Sulfate (Morphine Inj (Syringe)*) 2 mg IV Q4H PRN PRN Reason: PAIN - MILD Last Admin: 07/10/16 21:44 Dose: 2 mg Morphine Sulfate (Morphine Oral Concentrate*) 1.5 mg SL Q2H PRN PRN Reason: PAIN Multivitamins ( Vitamin Tab*) 1 tab PO DAILY [facility] Last Admin: 07/12/16 07:34 Dose: 1 tab Pravastatin Sodium (Pravachol (Nf)) 10 mg PO DAILY [facility] PRN Reason: Protocol Last Admin: 07/12/16 07:35 Dose: 10 mg Senna (Senokot Tab*) 2 tab PO BEDTIME PRN PRN Reason: CONSTIPATION Last Admin: 07/11/16 22:20 Dose: 2 tab Spironolactone (Aldactone Tab*) 25 mg PO SUTUTHSA [facility] Last Admin: 07/12/16 09:23 Dose: 25 mg Tiotropium [place] (Spiriva Cap.Inh*) 1 cap INH DAILY [facility] Last Admin: 07/12/16 08:44 Dose: 1 cap Torsemide (Demadex*) 10 mg PO MOWEFR [facility] Last Admin: 07/10/16 10:33 Dose: 10 mg Vital Signs 07/11/16 07/11/16 07/11/16 15:13 19:45 19:59 Temperature 97.4 F 98.4 F Pulse Rate 84 77 83 Respiratory 20 28 18 Rate Blood Pressure 126/43 115/33 (mmHg) O2 Sat by Pulse 99 96 95 Oximetry 07/11/16 07/11/16 07/11/16 20:00 20:24 22:21 Temperature Pulse Rate Respiratory 18 18 Rate Blood Pressure (mmHg) O2 Sat by Pulse 95 Oximetry 07/11/16 07/12/16 07/12/16 23:29 00:21 03:49 Temperature 98.8 F 98.4 F Pulse Rate 97 41 Respiratory 16 16 16 Rate Blood Pressure 107/32 105/36 (mmHg) O2 Sat by Pulse 99 100 Oximetry 07/12/16 07/12/16 07/12/16 06:49 07:25 08:50 Temperature 98.2 F Pulse Rate 60 86 Respiratory 20 16 15 Rate Blood Pressure 121/52 (mmHg) O2 Sat by Pulse 100 99 Oximetry 07/12/16 07/12/16 09:05 11:20 Temperature 97.9 F Pulse Rate 140 80 Respiratory 16 Rate Blood Pressure 108/34 (mmHg) O2 Sat by Pulse 97 Oximetry Oxygen Devices in Use Now: None Appearance: 86 yo F in nAD, AAOx3, poor historian Eyes: No Scleral Icterus, PERRLA Ears/Nose/Mouth/Throat: NL Teeth, Lips, Gums, Mucous Membranes Moist Neck: NL Appearance and Movements; NL JVP, Trachea Midline Respiratory: Symmetrical Chest Expansion and Respiratory Effort, - Cardiovascular: - - irregular, 2/6 OSIRIS at apex Abdominal: NL Sounds; No Tenderness; No Distention, No Hepatosplenomegaly Lymphatic: No Cervical Adenopathy Extremities: No Edema, No Clubbing, Cyanosis Skin: No Rash or Ulcers, No Nodules or Sclerosis Neurological: Alert and Oriented x 3, NL Muscle Strength and Tone Result Diagrams: 07/12/16 11:55 07/09/16 05:39 Additional Lab and Data: Lab Results 07/02/16 07/02/16 07/02/16 Range/Units 23:25 23:25 23:25 WBC 17.5 H (3.5-10.8) 10^3/ul RBC 2.22 L (4.0-5.4) 10^6/ul Hgb 8.9 L (12.0-16.0) g/dl Hct 27 L (35-47) % MCV 124 H (80-97) fL MCH 40 H (27-31) pg MCHC 33 (31-36) g/dl RDW 24 H (10.5-15) % Plt Count 331 (150-450) 10^3/ul MPV 9 (7.4-10.4) um3 Immature Gran % (Auto) 5 (0-9) % Neut % (Auto) 72.6 (38-83) % Lymph % (Auto) 16.6 L (25-47) % [place] % (Auto) 9.1 H (1-9) % Eos % (Auto) 1.5 (0-6) % Baso % (Auto) 0.2 (0-2) % Absolute Neuts (auto) 12.7 H (1.5-7.7) 10^3/ul Absolute Lymphs (auto) 2.9 (1.0-4.8) 10^3/ul Absolute Monos (auto) 1.6 H (0-0.8) 10^3/ul Absolute Eos (auto) 0.3 (0-0.6) 10^3/ul Absolute Basos (auto) 0 (0-0.2) 10^3/ul Absolute Nucleated RBC 0.30 10^3/ul Neutrophils % 75 (38-83) % Band Neutrophils % 5 (0-8) % Lymphocytes % 11 L (25-47) % Monocytes % 7 (0-13) % Eosinophils % 2 (0-6) % Nucleated RBC % 1.7 Nucleated RBCs/100 WBC 2 H (0-0) Toxic Granulation 1+ Normal RBC Morphology Not Reportable Polychromasia 1+ Macrocytosis 3+ Target Cells 1+ [place] Cells 1+ Elliptocytes 1+ Schistocytes 1+ Hem Pathologist Commnt Pending Patient Temperature ABG pH (7.35-7.45) ABG pCO2 (35-45) mmHg ABG pO2 (80-100) mmHg ABG HCO3 (19-31) mmol/L ABG O2 Saturation (95-98) % ABG Base Excess (-2.0-2.0) Respiration Rate O2 Delivery Device Ventilator Type Vent Mode FiO2 Inspiratory Time PEEP Pressure Support Pressure Control EPAP IPAP BiPAP Sodium 133 (133-145) mmol/L Potassium 4.7 (3.5-5.0) mmol/L Chloride 100 L (101-111) mmol/L Carbon Dioxide 25 (22-32) mmol/L Anion Gap 8 (2-11) mmol/L BUN 25 H (6-24) mg/dL Creatinine 0.88 (0.51-0.95) mg/dL Est GFR ( Amer) 78.0 (>60) Est GFR (Non-Af Amer) 60.6 (>60) BUN/Creatinine Ratio 28.4 H (8-20) Glucose 222 H (70-100) mg/dL Lactic Acid 1.5 (0.5-2.0) mmol/L Calcium 9.3 (8.6-10.3) mg/dL Total Bilirubin 1.10 H (0.2-1.0) mg/dL AST 34 (13-39) U/L ALT 15 (7-52) U/L Alkaline Phosphatase 56 (34-104) U/L Troponin I 0.03 (<0.04) ng/mL B-Natriuretic Peptide ( - 100) pg/mL Total Protein 6.8 (6.4-8.9) g/dL Albumin 4.4 (3.2-5.2) g/dL Globulin 2.4 (2-4) g/dL Albumin/Globulin Ratio 1.8 (1-3) 07/02/16 07/03/16 Range/Units 23:25 00:15 WBC (3.5-10.8) 10^3/ul RBC (4.0-5.4) 10^6/ul Hgb (12.0-16.0) g/dl Hct (35-47) % MCV (80-97) fL MCH (27-31) pg MCHC (31-36) g/dl RDW (10.5-15) % Plt Count (150-450) 10^3/ul MPV (7.4-10.4) um3 Immature Gran % (Auto) (0-9) % Neut % (Auto) (38-83) % Lymph % (Auto) (25-47) % [place] % (Auto) (1-9) % Eos % (Auto) (0-6) % Baso % (Auto) (0-2) % Absolute Neuts (auto) (1.5-7.7) 10^3/ul Absolute Lymphs (auto) (1.0-4.8) 10^3/ul Absolute Monos (auto) (0-0.8) 10^3/ul Absolute Eos (auto) (0-0.6) 10^3/ul Absolute Basos (auto) (0-0.2) 10^3/ul Absolute Nucleated RBC 10^3/ul Neutrophils % (38-83) % Band Neutrophils % (0-8) % Lymphocytes % (25-47) % Monocytes % (0-13) % Eosinophils % (0-6) % Nucleated RBC % Nucleated RBCs/100 WBC (0-0) Toxic Granulation Normal RBC Morphology Polychromasia Macrocytosis Target Cells Alicia Cells Elliptocytes Schistocytes Hem Pathologist Commnt Patient Temperature Not Reportable ABG pH 7.38 (7.35-7.45) ABG pCO2 38 (35-45) mmHg ABG pO2 179 H (80-100) mmHg ABG HCO3 23.1 (19-31) mmol/L ABG O2 Saturation 100.1 H (95-98) % ABG Base Excess -2.4 L (-2.0-2.0) Respiration Rate Not Reportable O2 Delivery Device V60 Ventilator Type Not Reportable Vent Mode Not Reportable FiO2 50 Inspiratory Time Not Reportable PEEP Not Reportable Pressure Support Not Reportable Pressure Control Not Reportable EPAP 5 IPAP 10 BiPAP Not Reportable Sodium (133-145) mmol/L Potassium (3.5-5.0) mmol/L Chloride (101-111) mmol/L Carbon Dioxide (22-32) mmol/L Anion Gap (2-11) mmol/L BUN (6-24) mg/dL Creatinine (0.51-0.95) mg/dL Est GFR ( Amer) (>60) Est GFR (Non-Af Amer) (>60) BUN/Creatinine Ratio (8-20) Glucose (70-100) mg/dL Lactic Acid (0.5-2.0) mmol/L Calcium (8.6-10.3) mg/dL Total Bilirubin (0.2-1.0) mg/dL AST (13-39) U/L ALT (7-52) U/L Alkaline Phosphatase (34-104) U/L Troponin I (<0.04) ng/mL B-Natriuretic Peptide 643 H ( - 100) pg/mL Total Protein (6.4-8.9) g/dL Albumin (3.2-5.2) g/dL Globulin (2-4) g/dL Albumin/Globulin Ratio (1-3) Microbiology and Other Data: Microbiology 07/11/16 18:00 Transfusion Reaction Culture - Preliminary Blood Bag Culture Under Incubation Transfusion Reaction Gram Stain - Preliminary Assess/Plan/Problems-Billing Assessment: Mrs. Hernandez is a 86yo F with PMH of Afib, HTN, diastolic CHF, s/p AVR, s/p pacer , MDS, COPD, cardiac arrest x 2, h/o trach/PEG, HLD, TIA, GI bleed, anxiety, depression, who presents with acute hypoxemic respiratory failure secondary to acute CHF exacerbation. - Patient Problems (1) Acute hypoxemic respiratory failure Comment: - Secondary to CHF exacerbation. - Continues to improve, -qualified for 02 at home (2) Acute diastolic CHF (congestive heart failure) Comment: - Secondary to dietary non-compliance in patient with advanced CHF and minimal reserve.. - Echocardiogram showed a hyperdynamic LV, EF>65%, RA/LA severely dilated, with severe TR/MR. - was seen seen by Dr. Oakley on 07/08/16 to discuss CRUZ and MV clipping. Pt is not a candidate for surgery right now. Pt and family are aware. Palliative care consult done-family not interested in hospice services right now, although pt is eligible for the benefit. (3) Severe mitral regurgitation Comment: - After acute episode is resolved, - considering her age, frailty, and comorbidities pt is appropiate for palliative care/hospice, but family declined (4) COPD (chronic obstructive pulmonary disease) Comment: - Continue inhaled steroids and bronchodilators. (5) MDS (myelodysplastic syndrome) Comment: s/p 1 U PRBC transfusion on 07/11/16, Hb ana appropiately (6) Hemoptysis Comment: suspect due to CHF, had been ongoing for days. Very scant Not evident today. (7) Full code status (8) Atrial fibrillation Comment: HR increased today. Will add digoxin to daily Cardizem dose. (9) DVT prophylaxis Comment: - SQ Heparin discontinued due to hemoptysis. SCD's Status and Disposition: Inpatient. Discharge on 07/10/16 was appealed by family since they were unable to arrange A[facility]'s help on the weekend.
[2016-07-12] MEDS ORDERED: Digoxin TAB* 0.25 MG PO SCH (17:00)
[2016-07-12] MEDS: diPHENhydraMINE PO* 25 MG PO PRN (21:02)
[2016-07-12] MEDS: Morphine INJ* 2 MG/ML 1 ML SYRINGE IV PRN (23:04)
[2016-07-13] MEDS: Levothyroxine TAB* 25 MCG TAB PO SCH (05:41)
[2016-07-13] MEDS: Tiotropium CAP.INH* CAP.INH/18 MCG INH SCH (08:08)
[2016-07-13] MEDS: Budesonide NEB* 0.5 MG/2 ML NEB.SOLN INH SCH (08:08)
[2016-07-13] MEDS: CMCS: Formoterol 20 MCG/2ML NEB (NF) 10 MCG/ML NEB.SOLN INH SCH (08:08)
[2016-07-13] MEDS: Cholecalciferol TAB* 1000 UNITS PO SCH (09:15)
[2016-07-13] MEDS: Cyanocobalamin TAB* 500 MCG PO SCH (09:16)
[2016-07-13] MEDS: Diltiazem CD CAP* 240 MG PO SCH (09:17)
[2016-07-13] MEDS: CMC:Pravastatin (NF) 20 MG TAB PO SCH (09:17)
[2016-07-13] MEDS: Torsemide TAB* 20 MG PO SCH (09:21)
[2016-07-13] MEDS: Prenatal Vitamin TAB PO SCH (09:21)
[2016-07-13 11:44] VITALS: BP 118/38
--- NOTE | 2016-07-14 01:41 | DS ---
DISCHARGE SUMMARY: * ADDENDUM: Please note that from the dictation of the last discharge summary on 07/10/16, the patient was ready for discharge, but the family was unable to take her home due to inability for the private home care agency to be able to take care of the patient over the weekend. The family appealed the patient's discharge and the patient stayed over the week-end under my care. During the past 2 days, the patient's hemoglobin continues to be in the 7's range. She has history of myelofibrosis and that is a slight worsening from her chronic anemia. At this point, it was decided for the patient to be transfused 1 unit of packed red blood cells. She had been transfused in the past for her myelofibrosis also. The patient tolerated the transfusion well and her repeat hemoglobin was up to 8.9 the day prior to discharge. The patient also had atrial fibrillation that is chronic with the heart rate up to the 130s when the patient was changing position or going from the bed to chair. At that point, the patient was placed on digoxin and she is being discharged on digoxin at 0.125 mg daily. Recommendation is for the patient to check her digoxin level in approximately 2 days with the report to be sent to Dr. Oakley and Dr. Holloway. Please note the medications on discharge are unchanged apart from the addition of the digoxin at 0.125 mg daily. The patient is continued on 2 L of oxygen at all times. The patient's last laboratory values obtained on 07/12/16 show white blood cell count 15.7, hemoglobin of 8.9, hematocrit of 27, and platelets of 241. On 07/09/16, sodium of 132, potassium 4.7, chloride 98, carbon dioxide 30, BUN 9 , creatinine 0.53. PHYSICAL EXAM AT THE TIME OF DISCHARGE: Blood pressure 140/53, heart rate of 93 and irregularly irregular, respiratory rate 20, oxygen saturation 95% on 2 L of oxygen nasal cannula. General: The patient is a very pleasant 86-year-old female, who is in no acute distress. The patient has poor short-term memory, but she is alert and oriented x3. HEENT: Head atraumatic, normocephalic. Eyes : Pupils equal, reactive to light and accommodation. Oropharynx clear. Mucosa moist. Neck: Supple. No JVD. No bruits bilaterally. Cardiovascular: Irregularly irregular rhythm with 2/6 systolic ejection murmur noted on the auscultation of the apex. Respiratory: Clear to auscultation bilaterally. Abdomen: Soft, nontender. Bowel sounds present in all 4 quadrants. Extremities : There is no edema. Pulses 2+ bilaterally. No clubbing or cyanosis. Neuro evaluation: Nonfocal. Speech is clear. Cranial nerves II through XII grossly intact. Motor strength is 5/5 bilaterally. Please note this is an addendum to the discharge summary originally dictated on 07/10/16. CC: Dr. Holloway; Dr. Oakley; Dr. Damon; Dr. Steel; Dr. Martini; Dr. Marin * [id number]/[facility] #: [id number] [facility]
== END 2016-07-13 14:06 | disposition home health service (06) | DRG 291 ==
LOC: ED 23:12 → OBSVTOIN 07-03 01:58 → ICU 07-03 01:58 → MEDTELE 07-06 12:09
PROVIDERS: ADMIT Internal Medicine; ATTEND Internal Medicine
PROC: 5A09357 Assistance with Respiratory Ventilation, Less than 24 Consecutive Hours, Continuous Positive Airway Pressure (ICD-10-PCS; 2016-07-02)
PROC: 30233N1 Transfusion of Nonautologous Red Blood Cells into Peripheral Vein, Percutaneous Approach (ICD-10-PCS; principal; 2016-07-11)
DX: I11.0 Hypertensive heart disease with heart failure (principal); J96.01 Acute respiratory failure with hypoxia; R64 Cachexia; I27.2 Other secondary pulmonary hypertension; I08.1 Rheumatic disorders of both mitral and tricuspid valves; R04.2 Hemoptysis; Z68.1 Body mass index [BMI] 19.9 or less, adult; D46.9 Myelodysplastic syndrome, unspecified; I50.43 Acute on chronic combined systolic (congestive) and diastolic (congestive) heart failure; E03.9 Hypothyroidism, unspecified; J44.9 Chronic obstructive pulmonary disease, unspecified; M19.90 Unspecified osteoarthritis, unspecified site; M81.0 Age-related osteoporosis without current pathological fracture; F41.9 Anxiety disorder, unspecified; F32.9 Major depressive disorder, single episode, unspecified; E78.5 Hyperlipidemia, unspecified; Z96.653 Presence of artificial knee joint, bilateral; R54 Age-related physical debility; G47.33 Obstructive sleep apnea (adult) (pediatric); I48.0 Paroxysmal atrial fibrillation; Z86.73 Personal history of transient ischemic attack (TIA), and cerebral infarction without residual deficits; Z95.0 Presence of cardiac pacemaker; Z97.4 Presence of external hearing-aid; Z95.3 Presence of xenogenic heart valve; Z91.11 Patient's noncompliance with dietary regimen
CPT/HCPCS: 36415; 36600; 71010; 80048; 80053; 80076; 82607; 82728; 82746; 82803; 83540; 83550; 83605; 83735; 83880; 84100; 84484; 85025; 85027; 85060; 86078; 86850; 86900; 86901; 86922; 87040; 93005; 93306; 94640; 94660; 94760; A9270-GY; J1160; J1644; J1940; J2270; J2920; P9040

== ENCOUNTER 2016-07-17 15:34 | Emergency (ER) | payer MEDICARE, OTHER ==
[2016-07-17 17:18] VITALS: BP 110/40
--- NOTE | 2016-07-17 18:09 | UC ---
Carolina Gabriel Michael, scribed for Sara Iniguez MD on 07/17/16 at 1650 . Respiratory Complaint HPI - HPI Summary HPI Summary: 86 y/o female comes to [facility] presenting with a productive cough that worsened last night while the pt was sleeping. The pt's granddaughter was bedside, and she reports that the sputum is yellow/brown. The pt notes intermittent episodes of coughing up pink blood. The productive cough is aggravated with laying down and not alleviated with Robitussin. She sleeps with a 2 pillow incline that does not alleviate the cough. She also c/o SOB, fatigue, and a fever with a temperature of 101, but currently her temperature is 98.3. The PMHx is significant for CHF. - History of Current Complaint Chief Complaint: UCRespiratory Stated Complaint: COUGH Hx Obtained From: Patient, Medical Records Onset/Duration: Gradual Onset, Lasting Days, Still Present Timing: Intermittent Episodes Severity Initially: Moderate Severity Currently: Moderate Pain Intensity: 8 Pain Scale Used: 0-10 Numeric Character: Sputum Description: - yellow/brown. blood:pink Aggravating Factors: Recumbent Position - laying down Alleviating Factors: Nothing Associated Signs And Symptoms: Positive: Fever - productive cough. SOB. fatigue. - Allergies/Home Medications Allergies/Adverse Reactions: Allergies Allergy/AdvReac Type Severity Reaction Status Date / Time No Known Allergies Allergy Verified 07/17/16 16:07 PMH/Surg Hx/FS Hx/Imm Hx Endocrine History Of: Reports: Thyroid Disease - hypothyroid Denies: Diabetes, Hyperthyroidism, Hypothyroidism Cardiovascular History Of: Reports: Cardiac Disorders - Afib s/p pacemaker, cardiac arrest x 2, AVR, tricuspid repair, ?CHF, Hypertension, Pacemaker/ICD, Congestive Heart Failure Respiratory History Of: Reports: COPD, Asthma GI/ History Of: Reports: Gastrointestinal Bleed Neurological History Of: 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 knee surgery. Pacemaker - Family History Known Family History: Negative: Cardiac Disease, Diabetes - Social History Occupation: Retired Lives: With Family Alcohol Use: None Substance Use Type: None Smoking Status (MU): Never Smoked Tobacco - Immunization History Most Recent Influenza Vaccination: [id number] season Most Recent Tetanus Shot: within 10 years Most Recent Pneumonia Vaccination: Within the last couple of years Review of Systems Constitutional: Fever, Fatigue Skin: Negative Eyes: Negative ENT: Negative Respiratory: Shortness Of Breath, Cough Cardiovascular: Other - no chest pain no sob Gastrointestinal: Negative Genitourinary: Negative Motor: Weakness Neurovascular: Negative Musculoskeletal: Other: Psychological: Negative All Other Systems Reviewed And Are Negative: Yes Physical Exam Triage Information Reviewed: Yes Appearance: Thin, Other: - looks tired. sitting up in chair. Vital Signs: Initial Vital Signs Temp 98.3 F 07/17/16 15:57 Pulse 101 07/17/16 15:57 Resp 18 07/17/16 15:57 BP 120/36 07/17/16 15:57 Pulse Ox 100 07/17/16 15:57 Vital Signs Reviewed: Yes Eye Exam: Normal - grossly normal pupils ENT Exam: Normal - grossly normal. mmm. Neck exam: Normal - trachea midline Neck: Positive: Supple Respiratory: Positive: Decreased breath sounds, Other: - decreased bibasilar breath sounds scattered crackles L>R. Able to converse in full sentances. Resp exam performed while pt in sitting position Cardiovascular: Positive: Other: - Irreg rhythm, pacer 1+ dp & bp both feet. Abdominal Exam: Normal Musculoskeletal Exam: Other - Moves all 4 ext's. Minimal pedal edema. + hemosiderosis. + varicosities. Feet warm to touch. Leg circumference visually similar. Neurological Exam: Normal - grossly nonfocal. Conversing appropriately. Psychological Exam: Normal - conversing easily and appropriately Skin Exam: Normal - a little pale. Nondiaphoretic. Diagnostic Evaluation - Laboratory O2 Sat by Pulse Oximetry: 100 Respiratory Course/Dx - Course Course Of Treatment: No new problems while in [facility]. I reviewed most recent H/P and recent labs and echocardiogram from hospital admission June 2016. She will benefit from transfer to the ED for further evaluation and treatment. Diff dx is extensive including albeit not limited to pneumonia, chf, cardiac issue, electrolyte imbalance. D/w pt and family and aide present. They express understanding and agreement. Will go directly to ED. They politely but firmly decline EMS. AMA signed. Discussed with Dr. Brown at 1651. - Differential Dx/Diagnosis Provider Diagnoses: shortness of breath, cough Discharge - Discharge Plan Condition: Stable Disposition: TRANS HIGHER L OF CARE FAC Referrals: Gudelia Holloway MD [Primary Care Provider] - The documentation as recorded by the Carolina lobo Michael accurately reflects the service I personally performed and the decisions made by me, Sara Iniguez MD.
== END 2016-07-17 16:52 | disposition short-term general hospital (02) ==
LOC: UCEAST 15:34
DX: R06.02 Shortness of breath (principal); R05 Cough; I50.9 Heart failure, unspecified; E03.9 Hypothyroidism, unspecified; I48.91 Unspecified atrial fibrillation; F41.9 Anxiety disorder, unspecified; F32.9 Major depressive disorder, single episode, unspecified; I10 Essential (primary) hypertension; J44.9 Chronic obstructive pulmonary disease, unspecified; Z95.0 Presence of cardiac pacemaker; Z86.74 Personal history of sudden cardiac arrest; Z86.73 Personal history of transient ischemic attack (TIA), and cerebral infarction without residual deficits
CPT/HCPCS: 99213; G0463

== ENCOUNTER 2016-07-17 17:30 | Inpatient (IN) | payer MEDICARE, OTHER ==
[2016-07-17] MEDS ORDERED: NS 0.9% 1000 ML* 1,000 ML IV ONE (18:39)
[2016-07-17] MEDS ORDERED: Levofloxacin 750 MG IVPREMIX(* 750 MG/150 ML BAG IVPB ONE (18:39)
[2016-07-17 19:27] LABS: Hematocrit 29 % (35-47); Hemoglobin 9.8 g/dl (12.0-16.0); Mean Corpuscular HGB Conc 33 g/dl (31-36); Mean Corpuscular Hemoglobin 37 pg (27-31); Mean Platelet Volume 8 um3 (7.4-10.4); Red Blood Count 2.66 10^6/ul (4.0-5.4); Red Cell Distribution Width 28 % (10.5-15); White Blood Count 10.9 10^3/ul (3.5-10.8)
--- NOTE | 2016-07-17 19:30 | RAD ---
HISTORY: Cough COMPARISONS: May 04, 2016 VIEWS: 2: Frontal and lateral views of the chest. FINDINGS: CARDIOMEDIASTINAL SILHOUETTE: The cardiac silhouette is enlarged. A prosthetic heart valve is noted The cardiomediastinal silhouette is otherwise normal. LILLIAN: The lillian are normal. PLEURA: The costophrenic angles are sharp. No pleural abnormalities are noted. LUNG PARENCHYMA: There is a diffuse reticular pattern, somewhat improved from the previous examination. There is patchy alveolar opacification of the retroareolar left lower lobe ABDOMEN: The upper abdomen is clear. There is no subphrenic gas. BONES AND SOFT TISSUES: The patient is status post median sternotomy. Degenerative changes are noted, with calcific density along the proximal right humerus. OTHER: Left-sided pacemaker is noted IMPRESSION: 1. CARDIOMEGALY WITH MILD PULMONARY INTERSTITIAL EDEMA, IMPROVED FROM THE PREVIOUS EXAMINATION. 2. LEFT LOWER LUNG CONSOLIDATION. RECOMMEND FOLLOW-UP UNTIL RESOLUTION TO EXCLUDE UNDERLYING PULMONARY PARENCHYMAL PATHOLOGY
[2016-07-17 19:34] LABS: Add Diff/Slide Review? Slide Review Added; Comments Flag Yes; Mean Corpuscular Volume 110 fL (80-97)
[2016-07-17 19:42] LABS: Albumin 3.8 g/dL (3.2-5.2); BUN/Creatinine Ratio 23.3 (8-20); Calcium 9.7 mg/dL (8.6-10.3); EGFR African American 96.8 (>60); EGFR Non-African American 75.2 (>60); Globulin 3.4 g/dL (2-4); Potassium 4.8 mmol/L (3.5-5.0); Total Bilirubin 1.2 mg/dL (0.2-1.0); Total Protein 7.2 g/dL (6.4-8.9)
[2016-07-17 19:52] LABS: C Reactive Protein 111.91 mg/L (< 5.00)
[2016-07-17] MEDS ORDERED: Iohexol 350* (CONTRAST) 500 ML MDV IV ONE (20:46)
[2016-07-17] MEDS ORDERED: Cefepime(*) 2 GM in NS 0.9% 50 ML* 50 ML IVPB SCH (21:00)
[2016-07-17] MEDS ORDERED: Mometasone/Formoter 200/5 MDI INH SCH (21:00)
[2016-07-17 21:11] LABS: Troponin I 0.05 ng/mL (<0.04)
[2016-07-17] MEDS ORDERED: NS 0.9% 50 ML* 50 ML ONE (21:24)
--- NOTE | 2016-07-17 21:24 | RAD ---
HISTORY: Pneumonia, shortness of breath COMPARISONS: March 18, 2016 TECHNIQUE: Multiple contiguous axial CT scans of the chest were obtained after the administration of nonionic intravenous contrast, timed to the pulmonary arterial phase of contrast enhancement.. Coronal and sagittal multiplanar reformations are also submitted for review. FINDINGS: The study is limited by patient motion artifact.Evaluation is also limited by streak artifact from a left sided pacemaker NECK AND THYROID: The lower neck and thyroid are unremarkable. CHEST WALL: There is no lower cervical, axillary, or supraclavicular lymphadenopathy by size criteria. A left-sided pacemaker is noted HEART AND PERICARDIUM: There is biatrial and biventricular enlargement. Coronary and valvular cardiac calcifications are noted. A prosthetic heart valve is noted. AORTA AND PULMONARY VASCULATURE: The aorta is not well evaluated secondary to the phase of contrast demonstration. There is atherosclerosis of the aorta. There is no pulmonary arterial filling defect to suggest pulmonary embolism. The pulmonary artery is enlarged compared to the aorta MEDIASTINUM: There is no mediastinal lymphadenopathy by size criteria. LILLIAN: There is no hilar lymphadenopathy by size criteria. AIRWAY AND ESOPHAGUS: The airway is unremarkable, without endobronchial filling defect. The esophagus is grossly normal. LUNG PARENCHYMA: There is segmental consolidation of the left lower lobe PLEURA: No pleural abnormalities are noted. UPPER ABDOMEN: The upper abdomen is unremarkable. BONES AND SOFT TISSUES: There is diffuse osteopenia. Degenerative changes are noted of the spine. OTHER: None. IMPRESSION: 1. LIMITED STUDY. 2. WITHIN THE LIMITATIONS OF THE STUDY, THERE IS NO PULMONARY ARTERIAL FILLING DEFECT TO SUGGEST PULMONARY WAS. 3. CARDIOMEGALY 4. PULMONARY ARTERIAL ENLARGEMENT SUGGESTIVE OF PULMONARY ARTERIAL HYPERTENSION. 5. LEFT LOWER LOBE CONSOLIDATION. 6. OSTEOPENIA. 7. ATHEROSCLEROSIS
[2016-07-17] MEDS: Cefepime(*) 2 GM in NS 0.9% 50 ML* 50 ML IVPB SCH (21:40)
--- NOTE | 2016-07-17 22:31 | ED ---
Tony Gabriel Benjamin, scribed for Beltran Montes MD on 07/17/16 at 1902 . HPI Chest Pain - HPI Summary HPI Summary: 86yo female c/o right anterior CP today, also burning sensation in lungs, and cough since yesterday. Per home service technician, pt started having deeper, raspy cough since this morning. Pt also reports fatigue and a fever. - History of Current Complaint Chief Complaint: EDChestPainROMI Time Seen by Provider: 07/17/16 18:29 Hx Obtained From: Patient, Family/Bicycle Inspector - home service technician Onset/Duration: Started Days Ago - 1 day vaishnavi, Still Present Timing: Constant Initial Severity: Moderate Current Severity: Moderate Pain Intensity: 8 Pain Scale Used: 0-10 Numeric Chest Pain Location: Right Anterior Chest Pain Radiates: No Character: Burning, Cough, Non-Productive Aggravating Factor(s): Nothing Alleviating Factor(s): Nothing Associated Signs and Symptoms: Positive: Chest Pain, Cough, Other: - fatigue - Additional Pertinent History Primary Care Physician: HAYLEY - Allergy/Home Medications Allergies/Adverse Reactions: Allergies Allergy/AdvReac Type Severity Reaction Status Date / Time No Known Allergies Allergy Verified 07/17/16 16:07 Home Medications: Home Medications Aspirin EC Low Dose* [Ecotrin EC Low Dose 81 MG*] 81 mg PO DAILY 07/17/16 [ History Confirmed 07/17/16] Budesonide NEB* [Pulmicort NEB*] 0.5 mg INH BID 07/17/16 [History Confirmed 07/29] Calcium Carbonate-Cholecalcife [Calcium 600+D3 600-400 mg-Unit] 1 tab PO DAILY 07/17/16 [History Confirmed 07/17/16] Cholecalciferol [Vitamin D3 Ultra Strength] 5,000 unit PO DAILY 07/17/16 [ History Confirmed 07/17/16] Cyanocobalamin TAB* [Vitamin B12 TAB*] 1,000 mcg PO DAILY 07/17/16 [History Confirmed 07/17/16] Digoxin TAB* [Lanoxin TAB*] 0.125 mg PO MOTUWETHFR 07/17/16 [History Confirmed 07/17/16] Diltiazem HCl Extended Release [Diltiazem HCl ER] 240 mg PO DAILY 07/17/16 [ History Confirmed 07/17/16] Flaxseed (Linseed) [Flax Seed Oil 1000 mg] 1 cap PO DAILY 07/17/16 [History Confirmed 07/17/16] Folic Acid 800 mcg PO DAILY 07/17/16 [History Confirmed 07/17/16] Folic Acid-Vit B6-Vit B12-Vit [Animi-3/Vitamin D] 1 cap PO DAILY 07/17/16 [ History Confirmed 07/17/16] Formoterol 20 MCG/2ML NEB (NF) [Perforomist NEB.SOLN*(NF)] 20 mcg INH BID [History Confirmed 07/17/16] Glucosamine-Chondroitin [Glucosamine/Chondroitin T 750-600 mg] 1 tab PO DAILY [History Confirmed 07/17/16] Levothyroxine TAB* [Synthroid TAB*] 50 mcg PO DAILY 07/17/16 [History Confirmed 07/17/16] Lysine HCl [l-Lysine] 500 mg PO DAILY 07/17/16 [History Confirmed 07/17/16] Multiple Vitamins W/ Iron [One Daily Multivitamin/Ir] 1 tab PO DAILY 07/17/16 [ History Confirmed 07/17/16] Pravastatin (NF) [Pravachol (NF)] 20 mg PO DAILY 07/17/16 [History Confirmed 07/29] Tiotropium CAP.INH* [Spiriva CAP.INH*] 1 cap.inh INH BEDTIME 07/17/16 [History Confirmed 07/17/16] Torsemide TAB* [Demadex*] 10 mg PO MOWESA 07/17/16 [History Confirmed 07/17/16] Tragacanth [Astragalus Root] 2 liq PO DAILY 07/17/16 [History Confirmed 07/17/16 ] PMH/Surg Hx/FS Hx/Imm Hx Endocrine/Hematology History: Reports: Hx Thyroid Disease - hypothyroid Denies: Hx Diabetes Cardiovascular History: Reports: Hx Atrial Fibrillation, Hx Auto Implanted Cardiovert Defib, Hx Cardiac Arrest - x2, Hx Congestive Heart Failure, Hx Hypercholesterolemia, Hx Hypertension, Hx Pacemaker/ICD, Hx Valvular Heart Disease - Aortic valve replacement with bioprosthetic valve and tricuspid repair , Other Cardiovascular Problems/Disorders - open heart surgery Denies: Hx Peripheral Vascular Disease Respiratory History: Reports: Hx Asthma, Hx Chronic Obstructive Pulmonary Disease (COPD), Other Respiratory Problems/Disorders - Tracheostomy with removal GI History: Reports: Hx Gastrointestinal Bleed Musculoskeletal History: Reports: Other Musculoskeletal History - osteoarthritis Denies: Hx Arthritis, Hx Osteoporosis Sensory History: Reports: Hx Contacts or Glasses, Hx Hearing Aid, Hx Hearing Problem Opthamlomology History: Reports: Hx Contacts or Glasses Neurological History: Reports: Hx Transient Ischemic Attacks (TIA) Denies: Hx Headaches Psychiatric History: Reports: Hx Anxiety, Hx Depression - Surgical History Surgery Procedure, Year, and Place: open heart, unsure of year. knee surgery. Pacemaker - Immunization History Date of Tetanus Vaccine: unknown Infectious Disease History: No Infectious Disease History: Denies: Hx Clostridium Difficile, Hx Hepatitis, Hx Human Immunodeficiency Virus (HIV), Hx of Known/Suspected MRSA, Hx Shingles, Hx Tuberculosis, Hx Known/ Suspected VRE, Hx Known/Suspected VRSA, History Other Infectious Disease, Traveled Outside the in Last 30 Days - Family History Known Family History: Negative: Cardiac Disease, Diabetes - Social History Occupation: Retired Lives: Alone Alcohol Use: None Substance Use Type: Reports: None Hx Tobacco Use: No Smoking Status (MU): Never Smoked Tobacco Review of Systems Positive: Fever, Fatigue Eyes: Negative ENT: Negative Positive: Chest Pain Positive: Cough Gastrointestinal: Negative Genitourinary: Negative Musculoskeletal: Negative Skin: Negative Neurological: Negative Psychological: Normal All Other Systems Reviewed And Are Negative: Yes Physical Exam Triage Information Reviewed: Yes Vital Signs On Initial Exam: Initial Vitals Temp Pulse Resp BP Pulse Ox 98.4 F 77 20 128/81 100 07/17/16 17:37 07/17/16 17:37 07/17/16 17:37 07/17/16 17:37 07/17/16 17:37 Vital Signs Reviewed: Yes Appearance: Positive: Well-Appearing, No Pain Distress, Well-Nourished Skin: Positive: Warm, Skin Color Reflects Adequate Perfusion, Dry - dehydrated Head/Face: Positive: Normal Head/Face Inspection Eyes: Positive: EOMI, JOE ENT: Positive: Other - dry mucuous membrane Neck: Positive: Supple, Nontender Respiratory/Lung Sounds: Positive: Other - crackles on left lower base Cardiovascular: Positive: Normal Abdomen Description: Positive: Nontender, No Organomegaly Bowel Sounds: Positive: Present Musculoskeletal: Positive: Strength/ROM Intact Neurological: Positive: Normal, Sensory/Motor Intact, Alert, Oriented to Person Place, Time, CN Intact II-III Psychiatric: Positive: Affect/Mood Appropriate Diagnostics - Vital Signs Vital Signs Temp Pulse Resp BP Pulse Ox 07/17/16 18:25 101.5 F 62 16 116/55 100 07/17/16 17:37 98.4 F 77 20 128/81 100 - Laboratory Lab Results: Lab Results 07/17/16 07/17/16 07/17/16 Range/Units 19:15 19:15 19:15 WBC 10.9 H (3.5-10.8) 10^3/ul RBC 2.66 L (4.0-5.4) 10^6/ul Hgb 9.8 L (12.0-16.0) g/dl Hct 29 L (35-47) % MCV 110 H (80-97) fL MCH 37 H (27-31) pg MCHC 33 (31-36) g/dl RDW 28 H (10.5-15) % Plt Count 394 (150-450) 10^3/ul MPV 8 (7.4-10.4) um3 Neut % (Auto) 71.3 (38-83) % Lymph % (Auto) 6.3 L (25-47) % Lowndes % (Auto) 17.7 H (1-9) % Eos % (Auto) 1.4 (0-6) % Baso % (Auto) 3.3 H (0-2) % Absolute Neuts (auto) 7.8 H (1.5-7.7) 10^3/ul Absolute Lymphs (auto) 0.7 L (1.0-4.8) 10^3/ul Absolute Monos (auto) 1.9 H (0-0.8) 10^3/ul Absolute Eos (auto) 0.2 (0-0.6) 10^3/ul Absolute Basos (auto) 0.4 H (0-0.2) 10^3/ul Absolute Nucleated RBC 0.07 10^3/ul Nucleated RBC % 0.6 D-Dimer, Quantitative (Less Than 230) ng/mL Sodium 127 L (133-145) mmol/L Potassium 4.8 (3.5-5.0) mmol/L Chloride 90 L (101-111) mmol/L Carbon Dioxide 30 (22-32) mmol/L Anion Gap 7 (2-11) mmol/L BUN 17 (6-24) mg/dL Creatinine 0.73 (0.51-0.95) mg/dL Est GFR ( Amer) 96.8 (>60) Est GFR (Non-Af Amer) 75.2 (>60) BUN/Creatinine Ratio 23.3 H (8-20) Glucose 89 (70-100) mg/dL Lactic Acid 0.7 (0.5-2.0) mmol/L Calcium 9.7 (8.6-10.3) mg/dL Total Bilirubin 1.20 H (0.2-1.0) mg/dL AST 31 (13-39) U/L ALT 50 (7-52) U/L Alkaline Phosphatase 91 (34-104) U/L Troponin I 0.05 H* (<0.04) ng/mL C-Reactive Protein 111.91 H (< 5.00) mg/L B-Natriuretic Peptide ( - 100) pg/mL Total Protein 7.2 (6.4-8.9) g/dL Albumin 3.8 (3.2-5.2) g/dL Globulin 3.4 (2-4) g/dL Albumin/Globulin Ratio 1.1 (1-3) 07/17/16 07/17/16 Range/Units 19:15 19:15 WBC (3.5-10.8) 10^3/ul RBC (4.0-5.4) 10^6/ul Hgb (12.0-16.0) g/dl Hct (35-47) % MCV (80-97) fL MCH (27-31) pg MCHC (31-36) g/dl RDW (10.5-15) % Plt Count (150-450) 10^3/ul MPV (7.4-10.4) um3 Neut % (Auto) (38-83) % Lymph % (Auto) (25-47) % Lowndes % (Auto) (1-9) % Eos % (Auto) (0-6) % Baso % (Auto) (0-2) % Absolute Neuts (auto) (1.5-7.7) 10^3/ul Absolute Lymphs (auto) (1.0-4.8) 10^3/ul Absolute Monos (auto) (0-0.8) 10^3/ul Absolute Eos (auto) (0-0.6) 10^3/ul Absolute Basos (auto) (0-0.2) 10^3/ul Absolute Nucleated RBC 10^3/ul Nucleated RBC % D-Dimer, Quantitative 636 H (Less Than 230) ng/mL Sodium (133-145) mmol/L Potassium (3.5-5.0) mmol/L Chloride (101-111) mmol/L Carbon Dioxide (22-32) mmol/L Anion Gap (2-11) mmol/L BUN (6-24) mg/dL Creatinine (0.51-0.95) mg/dL Est GFR ( Amer) (>60) Est GFR (Non-Af Amer) (>60) BUN/Creatinine Ratio (8-20) Glucose (70-100) mg/dL Lactic Acid (0.5-2.0) mmol/L Calcium (8.6-10.3) mg/dL Total Bilirubin (0.2-1.0) mg/dL AST (13-39) U/L ALT (7-52) U/L Alkaline Phosphatase (34-104) U/L Troponin I (<0.04) ng/mL C-Reactive Protein (< 5.00) mg/L B-Natriuretic Peptide 560 H ( - 100) pg/mL Total Protein (6.4-8.9) g/dL Albumin (3.2-5.2) g/dL Globulin (2-4) g/dL Albumin/Globulin Ratio (1-3) Result Diagrams: 07/17/16 19:15 07/17/16 19:15 Lab Statement: Any lab studies that have been ordered have been reviewed, and results considered in the medical decision making process. - Radiology CXR Xray Interpretation: Positive (See Comments) - IMPRESSION: 1. CARDIOMEGALY WITH MILD PULMONARY INTERSTITIAL EDEMA, IMPROVED FROM THE PREVIOUS EXAMINATION. 2. LEFT LOWER LUNG CONSOLIDATION. RECOMMEND FOLLOW-UP UNTIL RESOLUTION TO EXCLUDE UNDERLYING PULMONARY PARENCHYMAL PATHOLOGY Radiology Interpretation Completed By: Radiologist - EKG 2002 Cardiac Rate: NL - 61bpm EKG Rhythm: Atrial Fibrillation EKG Interpretation: V- paced. EKG Comparison: No Significant Change - from 07/02/16 Chest Pain Course/Dx - Course Course Of Treatment: Ms. Hernandez presented febrile and coughing. She had crackles on the left and consolidation there on x-ray so she was treated for pneumonia. Her BNP, D-Dimer and Trop were all elevated a little so I was judicious with fluids. - Diagnoses Provider Diagnoses: Pneumonia - Provider Notifications Discussed Care Of Patient With: Dr. Mcclendon - Critical Care Time Critical Care Time: 30-74 min Discharge - Discharge Plan Condition: Stable Disposition: ADMITTED TO [facility] The documentation as recorded by the Tony lobo Benjamin accurately reflects the service I personally performed and the decisions made by me, Beltran Montes MD.
--- NOTE | 2016-07-17 23:03 | HP ---
AMENDED REPORT NOW INCLUDES COSIGNER DESIGNATION - ESIGNED BEFORE ADJUSTMENT HISTORY AND PHYSICAL: DATE OF ADMISSION: 07/17/16 PRIMARY CARE PROVIDER: Dr. Holloway. ATTENDING PHYSICIAN WHILE IN THE HOSPITAL: Dr. Joel Damon * (report dictated by Augustine Abbasi NP). CHIEF COMPLAINT: 1. Cough. 2. Fever. HISTORY OF PRESENT ILLNESS: Ms. Hernandez is an 86-year-old female patient with an extensive cardiac history. She has a history of atrial fibrillation, hypertension, COPD, cardiac cath, mitral regurg, arthritis, CHF, osteoporosis, hyperlipidemia, TIA, GI bleed, anxiety, depression, hypothyroidism and anemia. She comes into the ER today stating that since being discharged on Wednesday, she has had progressive worsening cough bringing up brownish type, yellowish type sputum. It has gotten more and more worse. They have also noted that she has been complaining of chills. She had a fever on Wednesday of 101. She says that she has been short of breath since going home as well. There has been no weight gain. No changes in the medication except that she is off potassium. The patient states that she had been coughing more. There was concern by the Juliet aide that she went home with that she might be coming down with a possible pneumonia. The patient and family were concerned. She came into the hospital and ultimately was found to what appeared to be a left lower lobe infiltrate and because of this finding, the hospitalist service was asked to evaluate. She does state that it hurts to breathe. She states that she has got some back pain particularly on the left side and she says that her shortness of breath is little worse than her baseline. She was evaluated by Dr. Montes and it was found that she was febrile here. It was noted that she had an infiltrate on x-ray. Hospitalist service was asked to evaluate for admission. PAST MEDICAL HISTORY: Significant for: 1. AFib. 2. Hypertension. 3. COPD. 4. Mitral regurg. 5. Osteoarthritis. 6. CHF. 7. Osteoporosis. 8. Hyperlipidemia. 9. TIA. 10. History of GI bleed. 11. Anxiety. 12. Depression. 13. Hypothyroidism. 14. Anemia. PAST SURGICAL HISTORY: 1. She has had a cardiac catheterization. 2. Tracheostomy with removal. 3. PEG tube with removal. 4. Aortic valve replacement. 5. Tricuspid repair. 6. Pacemaker placement. 8. Bilateral total knee replacement. 9. History of myelodysplastic syndrome. HOME MEDICATIONS: According to the list that they provided us today in the ER includes: 1. Astragalus Root 2 liquid p.o. daily. 2. Demadex 10 mg p.o. Wednesday, Wednesday, Wednesday. 3. Spiriva 1 capsule inhaled at bedtime. 4. Pravachol 20 mg p.o. daily. 5. Multivitamin 1 tablet p.o. daily. 6. Mag citrate 200 mg p.o. b.i.d. 7. Lysine 500 mg p.o. daily. 8. Synthroid 50 mcg daily. 9. Glucosamine chondroitin 1 tablet p.o. daily. 10. Perforomist 20 mcg inhaled b.i.d. 11. Folic acid with vitamin B one capsule daily. 12. Folic acid 800 mcg daily. 13. Flaxseed 1 capsule p.o. daily. 14. Diltiazem ER 240 daily. 15. Digoxin 0.125 mg p.o. Wednesday, Wednesday, Wednesday, , Wednesday. 16. B12 1000 mcg p.o. daily. 17. Vitamin D3 5000 units daily. 18. Calcium carbonate 1 tablet daily. 19. Pulmicort 0.5 mg inhaled b.i.d. 20. Aspirin 81 mg daily. ALLERGIES TO MEDICATIONS: Include no known drug allergies. FAMILY HISTORY: Unknown. SOCIAL HISTORY: She does not smoke. She does not drink. She lives with her and has 24 hour [facility] Aide Service. Surrogate decision maker is her daughters. REVIEW OF SYSTEMS: There is a documented fever. No significant weight change. No double vision. No ear discharge. She denied having any rhinorrhea. There is no sore throat. No thyroid enlargement. She denied having any chest pain with the exception of taking deep breath. There is no orthopnea. There is no nocturnal dyspnea or dyspnea on exertion. There is no abdominal pain. There is no nausea, no vomiting. No dysuria, no frequency. No seizure. No loss of conscious. No pruritus. No skin ulcerations. Review of 14 systems completed and all others negative. PHYSICAL EXAMINATION GENERAL: At this time, Mrs. Hernandez is an 86-year-old female patient. She is sitting in the ER stretcher and does not appear to be in any acute distress. VITAL SIGNS: Blood pressure 113/74, pulse 64, respirations 24, O2 sat 100% on 1 L and temperature of 101.5. HEENT: Head is atraumatic, normocephalic. Eyes: EOMs intact. Sclerae anicteric, not pale. NECK: Supple. Throat: Oral mucosa appears to be dry. No oropharyngeal erythema. LUNGS: She had some crackles and wheeze noted on the left side on exam. She had equal diaphragmatic expansion. HEART: Sounds S1, S2. Regular rate and rhythm. She does have a mitral murmur heard, it is a grade 2-3. ABDOMEN: Soft. It was flat, nontender. Bowel sounds present. EXTREMITIES: Pulses 2+ throughout. She is able to move all 4 extremities with 5/5 strength. NEUROLOGIC: She is awake. She is alert. She is oriented x3. Tongue midline. [employer] Terminal Operator were equal. No gross focal deficits. SKIN: Intact. DIAGNOSTIC STUDIES/LABORATORY DATA: Today revealed WBC 10.9, RBC of 2.66, hemoglobin is 9.8, baseline rate is right around 8, hematocrit 29, platelet count 394. D-dimer was 636. Sodium was 127, potassium 4.8, chloride 90, bicarb 30, BUN 17, creatinine 0.73, glucose 89, lactic 0.7. Calcium 9.7, total bili 1.2. AST 31, ALT 50, alk phos 91. Her troponin is pending. The CRP was 119. BNP of 560. She had an EKG obtained today which showed atrial fibrillation, it does have paced beats with LVH. It was reviewed to previous EKG, it appears to be similar. Chest x-ray showed a cardiomegaly with mild pulmonary interstitial edema improved from previous exam, left lower lung consolidation, recommend followup until resolution to exclude underlying pulmonary parenchymal pathology. Old medical records were reviewed. ASSESSMENT AND PLAN: Ms. Hernandez is an 86-year-old female patient coming into the ER today with complaints of cough bringing up a brownish-type sputum and yellow sputum at times and worsening shortness of breath with fever. She will be admitted under inpatient status for: 1. Pneumonia. At this point, she recently was in the hospital. I think it is appropriate to go ahead and put her on azithromycin, cefepime. We will get flutter valve. We will go ahead and put her on the Pulmicort. I am going to hold steroids because of her history of heart failure and her extensive cardiac history. I do not want her to retain fluids. She is not wheezing terribly on exam so I think we can wait and we will go ahead and put her on azithromycin. We will get the Legionella and Strep pneumo antigens, flu swab, sputum cultures , blood cultures were sent. We will continue to follow. She got some fluid here in the ER, normal IV fluids for now that will diurese and hydrate her as needed. Her blood pressure is stable. 2. Atrial fibrillation. I have switched over her diltiazem to immediate release in the setting of acute illness. We will continue this as prescribed. She is not on blood thinners because of history of bleeding. 3. Hypertension. We will continue her diltiazem with hold parameter. 4. Chronic obstructive pulmonary disease. She will be on a neb and inhaled steroids and pulmonary toileting. 5. Mitral regurgitation. We will watch fluid status carefully. 6. Arthritis. Continue supportive care. 7. History of congestive heart failure. Does not appear to be in acute failure at this point. We will monitor and diurese as needed. 8. Elevated D-dimer. We will get a CT of the chest. 9. Osteoporosis. Follow with the primary. 10. Hyperlipidemia. Continue meds as prescribed. 11. History of transient ischemic attack. Continue secondary prevention. 12. Anxiety and depression. Continue with supportive care. 13. Hypothyroidism. Continue her Synthroid. 14. Anemia. We will follow her H and H daily and then transfuse as needed. 15. DVT prophylaxis. She is high risk. She will be placed on heparin subcu. 16. Hyponatremia. This could be related to possibly a Legionella pneumonia. It could be dehydration, she got some fluids here in the ED. We will repeat this in the morning. We will sent off the TSH, cortisol. In addition to this, we will get a serum osmol, urine osmol and urine sodium. 17. Code status. She wishes to be a full code. 18. Fluid and nutrition. She can have a low sodium diet. TIME SPENT: Time spent on the admission was 70 minutes; greater than half the time was spent [id number] with the patient obtaining my history and physical, other half of the time spent going over the plan of care with the patient and implementing plan of care. I did discuss the plan of care with my attending, Dr. Damon; he is in agreement. AUGUSTINE ABBASI NP CC: Dr. Holloway * [id number]/CPS #: [id number] SOUMYA
[2016-07-17] MEDS: Digoxin TAB* 0.125 MG PO SCH (23:17)
[2016-07-17] MEDS: Azithromycin IV(*) 500 MG in NS 0.9% 250 ML* 250 ML IVPB SCH (23:18)
[2016-07-17] MEDS: Heparin VIAL(*) 5000 UNITS/ML VIAL (FIVE THOUSAND) SUBCUT SCH (23:22)
[2016-07-17] MEDS: Albuterol/Ipratropium NEB.SOL* Albuterol 2.5 MG/Ipratropium 0.5 MG 3 ML INH SCH (23:33)
[2016-07-17] MEDS: Budesonide NEB* 0.5 MG/2 ML NEB.SOLN INH SCH (23:33)
[2016-07-17] MEDS: Acetaminophen TAB* 325 MG PO PRN (23:53)
[2016-07-18 01:59] LABS: Urine Bilirubin Negative (Negative); Urine Glucose Negative (Negative); Urine Nitrite Negative (Negative)
[2016-07-18] MEDS: Albuterol/Ipratropium NEB.SOL* Albuterol 2.5 MG/Ipratropium 0.5 MG 3 ML INH SCH ×2 (03:10→07:20)
[2016-07-18] MEDS: Levothyroxine TAB* 50 MCG TAB PO SCH (05:43)
[2016-07-18] MEDS: Heparin VIAL(*) 5000 UNITS/ML VIAL (FIVE THOUSAND) SUBCUT SCH ×3 (05:43→20:51)
[2016-07-18] MEDS: Budesonide NEB* 0.5 MG/2 ML NEB.SOLN INH SCH ×2 (07:20→19:46)
[2016-07-18 08:12] LABS: Hematocrit 23 % (35-47); Hemoglobin 7.9 g/dl (12.0-16.0); Mean Corpuscular HGB Conc 34 g/dl (31-36); Mean Corpuscular Hemoglobin 38 pg (27-31); Mean Platelet Volume 8 um3 (7.4-10.4); Red Blood Count 2.09 10^6/ul (4.0-5.4); Red Cell Distribution Width 27 % (10.5-15); White Blood Count 7.2 10^3/ul (3.5-10.8)
[2016-07-18 08:13] LABS: Add Diff/Slide Review? Slide Review Added; Comments Flag Yes; Mean Corpuscular Volume 110 fL (80-97)
[2016-07-18 08:17] LABS: BUN/Creatinine Ratio 20.3 (8-20); Calcium 8.3 mg/dL (8.6-10.3); EGFR African American 103.3 (>60); EGFR Non-African American 80.3 (>60); Potassium 4.2 mmol/L (3.5-5.0)
[2016-07-18] MEDS: Aspirin EC Low Dose* 81 MG TAB.EC PO SCH (08:21)
[2016-07-18] MEDS: Atorvastatin* 10 MG TAB PO SCH (08:22)
[2016-07-18] MEDS: Acetaminophen TAB* 325 MG PO PRN ×2 (08:22→23:38)
[2016-07-18 08:45] LABS: Eosinophils % 1 % (0-6); Hypochromasia 2+; Immature Granulocytes 9 % (0-9); Macrocytosis 1+; Myelocytes % 2 % (0-1); Neutrophil % 69 % (38-83); Reactive Lymph % 1 % (0-6)
[2016-07-18 08:46] LABS: Basophilic Stippling 1+
--- NOTE | 2016-07-18 09:09 | PN ---
Subjective Date of Service: 07/18/16 Interval History: Pt is feeling ok other than pain in her R knee. She requests pain medication. She denies any SOB. Objective Active Medications: Acetaminophen (Tylenol Tab*) 650 mg PO Q4H PRN PRN Reason: FEVER/PAIN Last Admin: 07/18/16 08:22 Dose: 650 mg Albuterol (Ventolin 2.5 Mg/3 Ml Neb.Sasha*) 2.5 mg INH Q2H PRN PRN Reason: SOB/WHEEZING Albuterol/Ipratropium (Duoneb (Albuterol 2.5 Mg/Ipratropium 0.5 Mg)) 1 neb INH [id number] AWAKE [facility] Last Admin: 07/18/16 07:20 Dose: 1 neb Aspirin (Aspirin Ec Low Dose*) 81 mg PO DAILY [facility] Last Admin: 07/18/16 08:21 Dose: 81 mg Atorvastatin Calcium (Lipitor*) 5 mg PO DAILY [facility] PRN Reason: Protocol Last Admin: 07/18/16 08:22 Dose: 5 mg Budesonide (Pulmicort Neb*) 0.5 mg INH RT.BID [facility] Last Admin: 07/18/16 07:20 Dose: 0.5 mg Digoxin (Lanoxin Tab*) 0.125 mg PO MOTUWETHFR [facility] Last Admin: 07/17/16 23:17 Dose: 0.125 mg Heparin Sodium (Porcine) (Heparin Vial(*)) 5,000 units SUBCUT Q8HR [facility] Last Admin: 07/18/16 05:43 Dose: 5,000 units Azithromycin 500 mg/ Sodium (Chloride) 250 mls @ 250 mls/hr IVPB Q24H [facility] Last Admin: 07/17/16 23:18 Dose: 250 mls/hr Cefepime HCl 2 gm/ Sodium (Chloride) 50 mls @ 100 mls/hr IVPB Q24H [facility] Last Admin: 07/17/16 21:40 Dose: 100 mls/hr Levothyroxine Sodium (Synthroid Tab*) 50 mcg PO 0600 [facility] Last Admin: 07/18/16 05:43 Dose: 50 mcg Non-Formulary Medication (Diltiazem Hcl Extended Release [Diltiazem Hcl Er]) 240 mg PO DAILY [facility] Vital Signs 07/17/16 07/17/16 07/17/16 21:00 21:45 21:47 Temperature Pulse Rate 68 70 70 Respiratory 24 26 Rate Blood Pressure 113/60 113/60 (mmHg) O2 Sat by Pulse 100 100 100 Oximetry 07/17/16 07/17/16 07/17/16 22:12 22:20 23:17 Temperature 97.2 F 97.2 F Pulse Rate 77 77 75 Respiratory 78 20 Rate Blood Pressure 107/43 107/43 (mmHg) O2 Sat by Pulse 100 100 Oximetry 07/17/16 07/17/16 07/18/16 23:22 23:34 00:22 Temperature 98.2 F Pulse Rate 87 98 Respiratory 16 78 Rate Blood Pressure 114/36 (mmHg) O2 Sat by Pulse 100 20 98 Oximetry 07/18/16 07/18/16 07/18/16 03:41 07:21 07:22 Temperature 97.7 F 97.4 F Pulse Rate 58 71 74 Respiratory 16 24 Rate Blood Pressure 110/31 116/46 (mmHg) O2 Sat by Pulse 100 100 100 Oximetry 07/18/16 07:25 Temperature Pulse Rate 80 Respiratory 25 Rate Blood Pressure (mmHg) O2 Sat by Pulse 100 Oximetry Oxygen Devices in Use Now: Nasal Cannula - 2L-100% Appearance: Very thin elderly female lying in bed sleeping, awakens to voice, NAD Eyes: No Scleral Icterus Ears/Nose/Mouth/Throat: Mucous Membranes Moist Respiratory: Symmetrical Chest Expansion and Respiratory Effort, - - bibasilar crackles Cardiovascular: NL Sounds; No Murmurs; No JVD, RRR, No Edema Abdominal: NL Sounds; No Tenderness; No Distention Extremities: No Clubbing, Cyanosis Skin: No Rash or Ulcers, No Nodules or Sclerosis Neurological: Alert and Oriented x 3 Result Diagrams: 07/18/16 07:37 07/18/16 07:37 Additional Lab and Data: Lab Results 07/17/16 07/17/16 07/17/16 Range/Units 19:15 19:15 19:15 WBC 10.9 H (3.5-10.8) 10^3/ul RBC 2.66 L (4.0-5.4) 10^6/ul Hgb 9.8 L (12.0-16.0) g/dl Hct 29 L (35-47) % MCV 110 H (80-97) fL MCH 37 H (27-31) pg MCHC 33 (31-36) g/dl RDW 28 H (10.5-15) % Plt Count 394 (150-450) 10^3/ul MPV 8 (7.4-10.4) um3 Neut % (Auto) 71.3 (38-83) % Lymph % (Auto) 6.3 L (25-47) % [place] % (Auto) 17.7 H (1-9) % Eos % (Auto) 1.4 (0-6) % Baso % (Auto) 3.3 H (0-2) % Absolute Neuts (auto) 7.8 H (1.5-7.7) 10^3/ul Absolute Lymphs (auto) 0.7 L (1.0-4.8) 10^3/ul Absolute Monos (auto) 1.9 H (0-0.8) 10^3/ul Absolute Eos (auto) 0.2 (0-0.6) 10^3/ul Absolute Basos (auto) 0.4 H (0-0.2) 10^3/ul Absolute Nucleated RBC 0.07 10^3/ul Nucleated RBC % 0.6 D-Dimer, Quantitative (Less Than 230) ng/mL Sodium 127 L (133-145) mmol/L Potassium 4.8 (3.5-5.0) mmol/L Chloride 90 L (101-111) mmol/L Carbon Dioxide 30 (22-32) mmol/L Anion Gap 7 (2-11) mmol/L BUN 17 (6-24) mg/dL Creatinine 0.73 (0.51-0.95) mg/dL Est GFR ( Amer) 96.8 (>60) Est GFR (Non-Af Amer) 75.2 (>60) BUN/Creatinine Ratio 23.3 H (8-20) Glucose 89 (70-100) mg/dL Lactic Acid 0.7 (0.5-2.0) mmol/L Calcium 9.7 (8.6-10.3) mg/dL Total Bilirubin 1.20 H (0.2-1.0) mg/dL AST 31 (13-39) U/L ALT 50 (7-52) U/L Alkaline Phosphatase 91 (34-104) U/L Troponin I 0.05 H* (<0.04) ng/mL C-Reactive Protein 111.91 H (< 5.00) mg/L B-Natriuretic Peptide ( - 100) pg/mL Total Protein 7.2 (6.4-8.9) g/dL Albumin 3.8 (3.2-5.2) g/dL Globulin 3.4 (2-4) g/dL Albumin/Globulin Ratio 1.1 (1-3) 07/17/16 07/17/16 Range/Units 19:15 19:15 WBC (3.5-10.8) 10^3/ul RBC (4.0-5.4) 10^6/ul Hgb (12.0-16.0) g/dl Hct (35-47) % MCV (80-97) fL MCH (27-31) pg MCHC (31-36) g/dl RDW (10.5-15) % Plt Count (150-450) 10^3/ul MPV (7.4-10.4) um3 Neut % (Auto) (38-83) % Lymph % (Auto) (25-47) % [place] % (Auto) (1-9) % Eos % (Auto) (0-6) % Baso % (Auto) (0-2) % Absolute Neuts (auto) (1.5-7.7) 10^3/ul Absolute Lymphs (auto) (1.0-4.8) 10^3/ul Absolute Monos (auto) (0-0.8) 10^3/ul Absolute Eos (auto) (0-0.6) 10^3/ul Absolute Basos (auto) (0-0.2) 10^3/ul Absolute Nucleated RBC 10^3/ul Nucleated RBC % D-Dimer, Quantitative 636 H (Less Than 230) ng/mL Sodium (133-145) mmol/L Potassium (3.5-5.0) mmol/L Chloride (101-111) mmol/L Carbon Dioxide (22-32) mmol/L Anion Gap (2-11) mmol/L BUN (6-24) mg/dL Creatinine (0.51-0.95) mg/dL Est GFR ( Amer) (>60) Est GFR (Non-Af Amer) (>60) BUN/Creatinine Ratio (8-20) Glucose (70-100) mg/dL Lactic Acid (0.5-2.0) mmol/L Calcium (8.6-10.3) mg/dL Total Bilirubin (0.2-1.0) mg/dL AST (13-39) U/L ALT (7-52) U/L Alkaline Phosphatase (34-104) U/L Troponin I (<0.04) ng/mL C-Reactive Protein (< 5.00) mg/L B-Natriuretic Peptide 560 H ( - 100) pg/mL Total Protein (6.4-8.9) g/dL Albumin (3.2-5.2) g/dL Globulin (2-4) g/dL Albumin/Globulin Ratio (1-3) Microbiology and Other Data: Microbiology 07/17/16 21:00 Influenza Types A,B Antigen (JACOB) - Final Nasal Specimen received for Influenza A/B Molecular testing Assess/Plan/Problems-Billing Ms Hernandez is an 86 yo F who has a h/o afib, myelofibrosis, HTN, COPD, diastolic CHF, hypothyroidism and depression/anxiety who presented to the ER from home with c/o cough and fever and was found to have a LLL infiltrate and fever and was admitted for treatment of pneumonia. - Patient Problems (1) LLL pneumonia Current Visit: Yes Status: Acute Code(s): J18.1 - LOBAR PNEUMONIA, UNSPECIFIED ORGANISM SNOMED Code(s): 341971626 Comment: The patient's CTA showed a LLL consolidation. This in conjunction with the fever, cough and elevated WBC count make me believe pneumonia is likely. Will continue cefepime and azithromycin for now. Her WBC count has normalized and her fever has resolved. Will monitor today and likely home tomorrow if she is stable. Will need to determine what Abx to send her out on. (2) Hyponatremia Current Visit: Yes Status: Acute Code(s): E87.1 - HYPO-OSMOLALITY AND HYPONATREMIA SNOMED Code(s): 97724652 Comment: This is a new finding for the patient. Urine studies are pending. After receiving fluids in the ER her Na dropped. Will hold off on further fluid , resume home diuretic dose and follow up labs tomorrow. (3) Diastolic CHF Current Visit: Yes Status: Acute Code(s): I50.30 - UNSPECIFIED DIASTOLIC ( CONGESTIVE) HEART FAILURE SNOMED Code(s): 813477124 Comment: No signs of fluid overload at this time. Continue usual home diuretic regimen. (4) Myelodysplasia (myelodysplastic syndrome) Current Visit: Yes Status: Chronic Code(s): D46.9 - MYELODYSPLASTIC SYNDROME , UNSPECIFIED SNOMED Code(s): 152179550 Comment: H/H down from d/c 4 days ago but close to her baseline. For now will continue to monitor. I doubt she is bleeding and the drop in the H/H is likely related to her myelofibrosis. Follow up with Dr. Steel as outpatient. (5) Atrial fibrillation Current Visit: Yes Status: Acute Code(s): I48.91 - UNSPECIFIED ATRIAL FIBRILLATION SNOMED Code(s): 61384539 Comment: HR is controlled. Continue diltiazem CD and digoxin. Check digoxin level. (6) COPD (chronic obstructive pulmonary disease) Current Visit: Yes Status: Acute Code(s): J44.9 - CHRONIC OBSTRUCTIVE PULMONARY DISEASE, UNSPECIFIED SNOMED Code(s): 37334532 Comment: No signs of exacerbation. Continue home inhaler/neb regimen. (7) Hypothyroidism Current Visit: Yes Status: Acute Code(s): E03.9 - HYPOTHYROIDISM, UNSPECIFIED SNOMED Code(s): 36453318 Comment: Continue home dose of synthroid. (8) HLD (hyperlipidemia) Current Visit: Yes Status: Acute Code(s): E78.5 - HYPERLIPIDEMIA, UNSPECIFIED SNOMED Code(s): 15169966 Comment: Continue statin. (9) DVT prophylaxis Current Visit: Yes Status: Acute Code(s): IXH3038 - SNOMED Code(s): 920921691 Comment: SQ heparin (10) Full code status Current Visit: Yes Status: Acute Code(s): Z78.9 - OTHER SPECIFIED HEALTH STATUS SNOMED Code(s): 232802170 (11) Elevated troponin Current Visit: Yes Status: Acute Code(s): R74.8 - ABNORMAL LEVELS OF OTHER SERUM ENZYMES SNOMED Code(s): 732193425
[2016-07-18 09:19] LABS: Digoxin 1.6 ng/ml (0.8-2.0)
[2016-07-18 09:48] LABS: Troponin I 0.03 ng/mL (<0.04)
[2016-07-18] MEDS: Diltiazem CD CAP* 240 MG PO SCH (10:38)
[2016-07-18] MEDS: Torsemide TAB* 20 MG PO SCH (10:38)
[2016-07-18] MEDS: traMADol TAB* 50 MG PO PRN (18:36)
[2016-07-18] MEDS: Albuterol 2.5 MG/3 ML NEB.SOL* (0.083%) INH PRN (19:46)
[2016-07-18] MEDS: Cefepime(*) 2 GM in NS 0.9% 50 ML* 50 ML IVPB SCH (20:50)
[2016-07-18] MEDS: Azithromycin IV(*) 500 MG in NS 0.9% 250 ML* 250 ML IVPB SCH (23:07)
[2016-07-19] MEDS: GuaiFENesin DM* 5 ML UDC PO PRN ×2 (05:27→12:15)
[2016-07-19] MEDS: Levothyroxine TAB* 50 MCG TAB PO SCH (05:28)
[2016-07-19] MEDS: Heparin VIAL(*) 5000 UNITS/ML VIAL (FIVE THOUSAND) SUBCUT SCH ×3 (05:28→20:37)
[2016-07-19 07:03] LABS: Hematocrit 23 % (35-47); Hemoglobin 7.8 g/dl (12.0-16.0); Mean Corpuscular HGB Conc 34 g/dl (31-36); Mean Corpuscular Hemoglobin 37 pg (27-31); Mean Platelet Volume 8 um3 (7.4-10.4); Red Blood Count 2.08 10^6/ul (4.0-5.4); Red Cell Distribution Width 27 % (10.5-15); White Blood Count 6.2 10^3/ul (3.5-10.8)
[2016-07-19 07:04] LABS: Comments Flag Yes
[2016-07-19 07:05] LABS: Mean Corpuscular Volume 109 fL (80-97)
[2016-07-19 07:28] LABS: BUN/Creatinine Ratio 17.4 (8-20); Calcium 8.1 mg/dL (8.6-10.3); EGFR African American 103.3 (>60); EGFR Non-African American 80.3 (>60); Potassium 3.8 mmol/L (3.5-5.0)
[2016-07-19] MEDS: Budesonide NEB* 0.5 MG/2 ML NEB.SOLN INH SCH ×2 (07:33→20:00)
[2016-07-19] MEDS: Tiotropium CAP.INH* CAP.INH/18 MCG INH SCH (07:40)
[2016-07-19] MEDS ORDERED: Diltiazem TAB* 60 MG PO SCH (09:00)
[2016-07-19] MEDS ORDERED: Spiriva Inhaler DEVICE* 1 EACH DEVICE ONE (09:00)
[2016-07-19] MEDS ORDERED: Spiriva Inhaler DEVICE* 1 EACH DEVICE INH ONE (09:00)
[2016-07-19] MEDS: Diltiazem CD CAP* 240 MG PO SCH (09:18)
[2016-07-19] MEDS: Aspirin EC Low Dose* 81 MG TAB.EC PO SCH (09:18)
[2016-07-19] MEDS: Atorvastatin* 10 MG TAB PO SCH (09:19)
--- NOTE | 2016-07-19 11:06 | PN ---
Subjective Date of Service: 07/19/16 Interval History: Pt is feeling tired. She states she did not sleep well over night. She denies any SOB to me. She states she has an occasional cough but no significant mucous. Objective Active Medications: Acetaminophen (Tylenol Tab*) 650 mg PO Q4H PRN PRN Reason: FEVER/PAIN Last Admin: 07/18/16 23:38 Dose: 650 mg Albuterol (Ventolin 2.5 Mg/3 Ml Neb.Sasha*) 2.5 mg INH Q2H PRN PRN Reason: SOB/WHEEZING Last Admin: 07/18/16 19:46 Dose: 2.5 mg Aspirin (Aspirin Ec Low Dose*) 81 mg PO DAILY [facility] Last Admin: 07/19/16 09:18 Dose: 81 mg Atorvastatin Calcium (Lipitor*) 5 mg PO DAILY [facility] PRN Reason: Protocol Last Admin: 07/19/16 09:19 Dose: 5 mg Budesonide (Pulmicort Neb*) 0.5 mg INH RT.BID [facility] Last Admin: 07/19/16 07:33 Dose: 0.5 mg Digoxin (Lanoxin Tab*) 0.125 mg PO MOTUWETHFR [facility] Last Admin: 07/17/16 23:17 Dose: 0.125 mg Diltiazem HCl (Cardizem Cd Cap*) 240 mg PO DAILY [facility] Last Admin: 07/19/16 09:18 Dose: 240 mg Guaifenesin/Dextromethorphan (Robitussin Dm*) 10 ml PO Q4H PRN PRN Reason: COUGH Last Admin: 07/19/16 05:27 Dose: 10 ml Heparin Sodium (Porcine) (Heparin Vial(*)) 5,000 units SUBCUT Q8HR [facility] Last Admin: 07/19/16 05:28 Dose: 5,000 units Azithromycin 500 mg/ Sodium (Chloride) 250 mls @ 250 mls/hr IVPB Q24H [facility] Last Admin: 07/18/16 23:07 Dose: 250 mls/hr Cefepime HCl 2 gm/ Sodium (Chloride) 50 mls @ 100 mls/hr IVPB Q24H [facility] Last Admin: 07/18/16 20:50 Dose: 100 mls/hr Levothyroxine Sodium (Synthroid Tab*) 50 mcg PO 0600 [facility] Last Admin: 07/19/16 05:28 Dose: 50 mcg Tiotropium [place] (Spiriva Cap.Inh*) 1 cap INH DAILY [facility] Last Admin: 07/19/16 07:40 Dose: 1 cap Torsemide (Demadex*) 10 mg PO MOWESA [facility] Last Admin: 07/18/16 10:38 Dose: 10 mg Tramadol HCl (Ultram*) 25 mg PO Q6H PRN PRN Reason: PAIN Last Admin: 07/18/16 18:36 Dose: 25 mg Vital Signs 07/18/16 07/18/16 07/18/16 12:45 15:21 16:12 Temperature 97.8 F Pulse Rate 80 74 Respiratory 24 Rate Blood Pressure 116/39 105/39 (mmHg) O2 Sat by Pulse 100 100 98 Oximetry 07/18/16 07/18/16 07/18/16 18:36 19:46 20:00 Temperature Pulse Rate 75 Respiratory 16 16 22 Rate Blood Pressure (mmHg) O2 Sat by Pulse 99 Oximetry 07/18/16 07/18/16 07/18/16 20:36 21:26 23:27 Temperature 98.7 F 98.2 F Pulse Rate 87 92 Respiratory 18 28 24 Rate Blood Pressure 109/44 127/36 (mmHg) O2 Sat by Pulse 99 100 Oximetry 07/18/16 07/19/16 07/19/16 23:48 00:57 03:19 Temperature 97.3 F Pulse Rate 64 Respiratory 16 22 Rate Blood Pressure 132/26 (mmHg) O2 Sat by Pulse 97 96 Oximetry 07/19/16 07/19/16 07/19/16 06:00 06:03 07:35 Temperature 98.4 F Pulse Rate 71 68 Respiratory 18 16 Rate Blood Pressure 137/40 (mmHg) O2 Sat by Pulse 100 98 Oximetry Oxygen Devices in Use Now: Nasal Cannula - 2L-98% Appearance: Thin elderly female lying flat in bed, NAD Eyes: No Scleral Icterus Ears/Nose/Mouth/Throat: Mucous Membranes Moist Respiratory: Symmetrical Chest Expansion and Respiratory Effort, - - lung sounds are tight, few expiratory squeaks, no clear crackles on exam Cardiovascular: NL Sounds; No Murmurs; No JVD, RRR, No Edema Abdominal: NL Sounds; No Tenderness; No Distention Extremities: No Clubbing, Cyanosis Skin: No Rash or Ulcers, No Nodules or Sclerosis Neurological: Alert and Oriented x 3 Result Diagrams: 07/19/16 06:42 07/19/16 06:38 Additional Lab and Data: Lab Results 07/17/16 07/17/16 07/17/16 Range/Units 19:15 19:15 19:15 WBC 10.9 H (3.5-10.8) 10^3/ul RBC 2.66 L (4.0-5.4) 10^6/ul Hgb 9.8 L (12.0-16.0) g/dl Hct 29 L (35-47) % MCV 110 H (80-97) fL MCH 37 H (27-31) pg MCHC 33 (31-36) g/dl RDW 28 H (10.5-15) % Plt Count 394 (150-450) 10^3/ul MPV 8 (7.4-10.4) um3 Neut % (Auto) 71.3 (38-83) % Lymph % (Auto) 6.3 L (25-47) % [place] % (Auto) 17.7 H (1-9) % Eos % (Auto) 1.4 (0-6) % Baso % (Auto) 3.3 H (0-2) % Absolute Neuts (auto) 7.8 H (1.5-7.7) 10^3/ul Absolute Lymphs (auto) 0.7 L (1.0-4.8) 10^3/ul Absolute Monos (auto) 1.9 H (0-0.8) 10^3/ul Absolute Eos (auto) 0.2 (0-0.6) 10^3/ul Absolute Basos (auto) 0.4 H (0-0.2) 10^3/ul Absolute Nucleated RBC 0.07 10^3/ul Nucleated RBC % 0.6 D-Dimer, Quantitative (Less Than 230) ng/mL Sodium 127 L (133-145) mmol/L Potassium 4.8 (3.5-5.0) mmol/L Chloride 90 L (101-111) mmol/L Carbon Dioxide 30 (22-32) mmol/L Anion Gap 7 (2-11) mmol/L BUN 17 (6-24) mg/dL Creatinine 0.73 (0.51-0.95) mg/dL Est GFR ( Amer) 96.8 (>60) Est GFR (Non-Af Amer) 75.2 (>60) BUN/Creatinine Ratio 23.3 H (8-20) Glucose 89 (70-100) mg/dL Lactic Acid 0.7 (0.5-2.0) mmol/L Calcium 9.7 (8.6-10.3) mg/dL Total Bilirubin 1.20 H (0.2-1.0) mg/dL AST 31 (13-39) U/L ALT 50 (7-52) U/L Alkaline Phosphatase 91 (34-104) U/L Troponin I 0.05 H* (<0.04) ng/mL C-Reactive Protein 111.91 H (< 5.00) mg/L B-Natriuretic Peptide ( - 100) pg/mL Total Protein 7.2 (6.4-8.9) g/dL Albumin 3.8 (3.2-5.2) g/dL Globulin 3.4 (2-4) g/dL Albumin/Globulin Ratio 1.1 (1-3) 07/17/16 07/17/16 Range/Units 19:15 19:15 WBC (3.5-10.8) 10^3/ul RBC (4.0-5.4) 10^6/ul Hgb (12.0-16.0) g/dl Hct (35-47) % MCV (80-97) fL MCH (27-31) pg MCHC (31-36) g/dl RDW (10.5-15) % Plt Count (150-450) 10^3/ul MPV (7.4-10.4) um3 Neut % (Auto) (38-83) % Lymph % (Auto) (25-47) % [place] % (Auto) (1-9) % Eos % (Auto) (0-6) % Baso % (Auto) (0-2) % Absolute Neuts (auto) (1.5-7.7) 10^3/ul Absolute Lymphs (auto) (1.0-4.8) 10^3/ul Absolute Monos (auto) (0-0.8) 10^3/ul Absolute Eos (auto) (0-0.6) 10^3/ul Absolute Basos (auto) (0-0.2) 10^3/ul Absolute Nucleated RBC 10^3/ul Nucleated RBC % D-Dimer, Quantitative 636 H (Less Than 230) ng/mL Sodium (133-145) mmol/L Potassium (3.5-5.0) mmol/L Chloride (101-111) mmol/L Carbon Dioxide (22-32) mmol/L Anion Gap (2-11) mmol/L BUN (6-24) mg/dL Creatinine (0.51-0.95) mg/dL Est GFR ( Amer) (>60) Est GFR (Non-Af Amer) (>60) BUN/Creatinine Ratio (8-20) Glucose (70-100) mg/dL Lactic Acid (0.5-2.0) mmol/L Calcium (8.6-10.3) mg/dL Total Bilirubin (0.2-1.0) mg/dL AST (13-39) U/L ALT (7-52) U/L Alkaline Phosphatase (34-104) U/L Troponin I (<0.04) ng/mL C-Reactive Protein (< 5.00) mg/L B-Natriuretic Peptide 560 H ( - 100) pg/mL Total Protein (6.4-8.9) g/dL Albumin (3.2-5.2) g/dL Globulin (2-4) g/dL Albumin/Globulin Ratio (1-3) Microbiology and Other Data: Microbiology 07/17/16 21:00 Influenza Types A,B Antigen (JACOB) - Final Nasal Specimen received for Influenza A/B Molecular testing Assess/Plan/Problems-Billing Ms Hernandez is an 86 yo F who has a h/o afib, myelofibrosis, HTN, COPD, diastolic CHF, hypothyroidism and depression/anxiety who presented to the ER from home with c/o cough and fever and was found to have a LLL infiltrate and fever and was admitted for treatment of pneumonia. - Patient Problems (1) LLL pneumonia Current Visit: Yes Status: Acute Code(s): J18.1 - LOBAR PNEUMONIA, UNSPECIFIED ORGANISM SNOMED Code(s): 200204529 Comment: The patient's CTA showed a LLL consolidation. This in conjunction with the fever, cough and elevated WBC count make me believe pneumonia is likely. Her WBC count remains normal. She remains afebrile. Her lungs do not sound as good today as they did yesterday. Will repeat CXR now. If CXR stable and her lungs are improved after moving. Will likely d/c pt home this afternoon. (2) Elevated troponin Current Visit: Yes Status: Acute Code(s): R74.8 - ABNORMAL LEVELS OF OTHER SERUM ENZYMES SNOMED Code(s): 924095259 Comment: Likely secondary to demand ischemia. Subsequent troponin trended down. No further work up at this time. (3) Hyponatremia Current Visit: Yes Status: Acute Code(s): E87.1 - HYPO-OSMOLALITY AND HYPONATREMIA SNOMED Code(s): 62987125 Comment: Improving. Continue to follow intermittently. (4) Diastolic CHF Current Visit: Yes Status: Acute Code(s): I50.30 - UNSPECIFIED DIASTOLIC ( CONGESTIVE) HEART FAILURE SNOMED Code(s): 606621411 Comment: No signs of fluid overload at this time. Continue usual home diuretic regimen. (5) Myelodysplasia (myelodysplastic syndrome) Current Visit: Yes Status: Chronic Code(s): D46.9 - MYELODYSPLASTIC SYNDROME , UNSPECIFIED SNOMED Code(s): 594559692 Comment: H/H stable but low secondary to her h/o myelofibrosis. Follow up as outpatient with Dr. Steel. (6) Atrial fibrillation Current Visit: Yes Status: Acute Code(s): I48.91 - UNSPECIFIED ATRIAL FIBRILLATION SNOMED Code(s): 64860278 Comment: HR is controlled. Continue diltiazem CD and digoxin. (7) COPD (chronic obstructive pulmonary disease) Current Visit: Yes Status: Acute Code(s): J44.9 - CHRONIC OBSTRUCTIVE PULMONARY DISEASE, UNSPECIFIED SNOMED Code(s): 94639370 Comment: No signs of exacerbation. Continue home inhaler/neb regimen. (8) Hypothyroidism Current Visit: Yes Status: Acute Code(s): E03.9 - HYPOTHYROIDISM, UNSPECIFIED SNOMED Code(s): 92127966 Comment: Continue home dose of synthroid. (9) HLD (hyperlipidemia) Current Visit: Yes Status: Acute Code(s): E78.5 - HYPERLIPIDEMIA, UNSPECIFIED SNOMED Code(s): 45799302 Comment: Continue statin. (10) DVT prophylaxis Current Visit: Yes Status: Acute Code(s): [id number] - SNOMED Code(s): 896964687 Comment: SQ heparin (11) Full code status Current Visit: Yes Status: Acute Code(s): Z78.9 - OTHER SPECIFIED HEALTH STATUS SNOMED Code(s): 216697470
--- NOTE | 2016-07-19 11:43 | RAD ---
INDICATION: Evaluate pulmonary edema COMPARISON: Most recent comparison chest x-rays dated July 17, 2016 TECHNIQUE: Single AP portable view of the chest was obtained. FINDINGS: Image quality is compromised due to the relative inferiority of a portable chest x-ray. Stable iatrogenic findings include left upper chest single lead cardiac pacemaker, prostatic aortic valve and sternotomy wires. There is a moderate degree of cardiomegaly unchanged from the previous chest x-ray as well as coarse calcification overlying the arch of the aorta. The lungs appear hyperaerated in the AP view but are adequately aerated. The diaphragm and costophrenic angles are adequately defined as well. Evidence of healed rib fractures are noted overlying the posterior left upper ribs. IMPRESSION: Chronic findings as described above with no radiographic evidence of acute cardiopulmonary abnormality.
[2016-07-19] MEDS: Albuterol 2.5 MG/3 ML NEB.SOL* (0.083%) INH PRN (16:20)
[2016-07-19] MEDS: traMADol TAB* 50 MG PO PRN (20:37)
[2016-07-19] MEDS: Cefepime(*) 2 GM in NS 0.9% 50 ML* 50 ML IVPB SCH (20:39)
[2016-07-19] MEDS: Azithromycin IV(*) 500 MG in NS 0.9% 250 ML* 250 ML IVPB SCH (23:00)
[2016-07-20] MEDS ORDERED: LORazepam INJ* 2 MG/ML 1 ML VIAL ONE (01:59)
[2016-07-20] MEDS ORDERED: LORazepam INJ* 2 MG/ML 1 ML VIAL IV PUSH ONE (02:00)
[2016-07-20] MEDS: Heparin VIAL(*) 5000 UNITS/ML VIAL (FIVE THOUSAND) SUBCUT SCH ×3 (06:27→21:17)
[2016-07-20] MEDS: Levothyroxine TAB* 50 MCG TAB PO SCH (06:27)
[2016-07-20] MEDS: Tiotropium CAP.INH* CAP.INH/18 MCG INH SCH (07:54)
[2016-07-20] MEDS: Budesonide NEB* 0.5 MG/2 ML NEB.SOLN INH SCH ×2 (07:54→20:23)
--- NOTE | 2016-07-20 08:52 | PN ---
Subjective Date of Service: 07/20/16 Interval History: Pt is feeling poor this AM. She received ativan very early this AM due to not being able to sleep well. She states her breathing is not good. She does not c/ o pain at this time. Objective Active Medications: Acetaminophen (Tylenol Tab*) 650 mg PO Q4H PRN PRN Reason: FEVER/PAIN Last Admin: 07/18/16 23:38 Dose: 650 mg Albuterol (Ventolin 2.5 Mg/3 Ml Neb.Sasha*) 2.5 mg INH Q2H PRN PRN Reason: SOB/WHEEZING Last Admin: 07/19/16 16:20 Dose: 2.5 mg Aspirin (Aspirin Ec Low Dose*) 81 mg PO DAILY [facility] Last Admin: 07/19/16 09:18 Dose: 81 mg Atorvastatin Calcium (Lipitor*) 5 mg PO DAILY [facility] PRN Reason: Protocol Last Admin: 07/19/16 09:19 Dose: 5 mg Budesonide (Pulmicort Neb*) 0.5 mg INH RT.BID [facility] Last Admin: 07/20/16 07:54 Dose: 0.5 mg Digoxin (Lanoxin Tab*) 0.125 mg PO MOTUWETHFR [facility] Last Admin: 07/17/16 23:17 Dose: 0.125 mg Diltiazem HCl (Cardizem Cd Cap*) 240 mg PO DAILY [facility] Last Admin: 07/19/16 09:18 Dose: 240 mg Guaifenesin/Dextromethorphan (Robitussin Dm*) 10 ml PO Q4H PRN PRN Reason: COUGH Last Admin: 07/19/16 12:15 Dose: 10 ml Heparin Sodium (Porcine) (Heparin Vial(*)) 5,000 units SUBCUT Q8HR [facility] Last Admin: 07/20/16 06:27 Dose: 5,000 units Azithromycin 500 mg/ Sodium (Chloride) 250 mls @ 250 mls/hr IVPB Q24H [facility] Last Admin: 07/19/16 23:00 Dose: 250 mls/hr Cefepime HCl 2 gm/ Sodium (Chloride) 50 mls @ 100 mls/hr IVPB Q24H [facility] Last Admin: 07/19/16 20:39 Dose: 100 mls/hr Levothyroxine Sodium (Synthroid Tab*) 50 mcg PO 0600 [facility] Last Admin: 07/20/16 06:27 Dose: 50 mcg Tiotropium [place] (Spiriva Cap.Inh*) 1 cap INH DAILY [facility] Last Admin: 07/20/16 07:54 Dose: 1 cap Torsemide (Demadex*) 10 mg PO MOWESA [facility] Last Admin: 07/18/16 10:38 Dose: 10 mg Tramadol HCl (Ultram*) 25 mg PO Q6H PRN PRN Reason: PAIN Last Admin: 07/19/16 20:37 Dose: 25 mg Vital Signs 07/19/16 07/19/16 07/19/16 11:10 15:21 16:22 Temperature 97.3 F 97.3 F Pulse Rate 79 55 62 Respiratory 17 17 Rate Blood Pressure 133/27 119/31 (mmHg) O2 Sat by Pulse 100 100 98 Oximetry 07/19/16 07/19/16 07/19/16 20:00 20:05 20:12 Temperature Pulse Rate 60 70 Respiratory 20 Rate Blood Pressure (mmHg) O2 Sat by Pulse 100 99 Oximetry 07/19/16 07/19/16 07/19/16 20:14 20:37 22:37 Temperature 97.6 F Pulse Rate 59 Respiratory 15 20 20 Rate Blood Pressure 121/36 (mmHg) O2 Sat by Pulse 100 Oximetry 07/19/16 07/20/16 07/20/16 23:14 02:19 03:19 Temperature 97.5 F Pulse Rate 65 Respiratory 16 22 18 Rate Blood Pressure 107/38 (mmHg) O2 Sat by Pulse 100 Oximetry 07/20/16 07/20/16 07:52 08:02 Temperature 98.0 F Pulse Rate 46 78 Respiratory 16 14 Rate Blood Pressure 121/42 (mmHg) O2 Sat by Pulse 100 99 Oximetry Oxygen Devices in Use Now: Nasal Cannula - 2L-98% Appearance: [place] thin female lying in bed, NAD Eyes: No Scleral Icterus Ears/Nose/Mouth/Throat: Mucous Membranes Moist Respiratory: - - very coarse breath sounds, slightly tachypnic at rest Cardiovascular: NL Sounds; No Murmurs; No JVD, RRR, No Edema Abdominal: NL Sounds; No Tenderness; No Distention Extremities: No Clubbing, Cyanosis Skin: No Rash or Ulcers, No Nodules or Sclerosis Neurological: - - sleepy but able to awake and carry on a conversation Result Diagrams: 07/19/16 06:42 07/19/16 06:38 Additional Lab and Data: Lab Results 07/17/16 07/17/16 07/17/16 Range/Units 19:15 19:15 19:15 WBC 10.9 H (3.5-10.8) 10^3/ul RBC 2.66 L (4.0-5.4) 10^6/ul Hgb 9.8 L (12.0-16.0) g/dl Hct 29 L (35-47) % MCV 110 H (80-97) fL MCH 37 H (27-31) pg MCHC 33 (31-36) g/dl RDW 28 H (10.5-15) % Plt Count 394 (150-450) 10^3/ul MPV 8 (7.4-10.4) um3 Neut % (Auto) 71.3 (38-83) % Lymph % (Auto) 6.3 L (25-47) % [place] % (Auto) 17.7 H (1-9) % Eos % (Auto) 1.4 (0-6) % Baso % (Auto) 3.3 H (0-2) % Absolute Neuts (auto) 7.8 H (1.5-7.7) 10^3/ul Absolute Lymphs (auto) 0.7 L (1.0-4.8) 10^3/ul Absolute Monos (auto) 1.9 H (0-0.8) 10^3/ul Absolute Eos (auto) 0.2 (0-0.6) 10^3/ul Absolute Basos (auto) 0.4 H (0-0.2) 10^3/ul Absolute Nucleated RBC 0.07 10^3/ul Nucleated RBC % 0.6 D-Dimer, Quantitative (Less Than 230) ng/mL Sodium 127 L (133-145) mmol/L Potassium 4.8 (3.5-5.0) mmol/L Chloride 90 L (101-111) mmol/L Carbon Dioxide 30 (22-32) mmol/L Anion Gap 7 (2-11) mmol/L BUN 17 (6-24) mg/dL Creatinine 0.73 (0.51-0.95) mg/dL Est GFR ( Amer) 96.8 (>60) Est GFR (Non-Af Amer) 75.2 (>60) BUN/Creatinine Ratio 23.3 H (8-20) Glucose 89 (70-100) mg/dL Lactic Acid 0.7 (0.5-2.0) mmol/L Calcium 9.7 (8.6-10.3) mg/dL Total Bilirubin 1.20 H (0.2-1.0) mg/dL AST 31 (13-39) U/L ALT 50 (7-52) U/L Alkaline Phosphatase 91 (34-104) U/L Troponin I 0.05 H* (<0.04) ng/mL C-Reactive Protein 111.91 H (< 5.00) mg/L B-Natriuretic Peptide ( - 100) pg/mL Total Protein 7.2 (6.4-8.9) g/dL Albumin 3.8 (3.2-5.2) g/dL Globulin 3.4 (2-4) g/dL Albumin/Globulin Ratio 1.1 (1-3) 07/17/16 07/17/16 Range/Units 19:15 19:15 WBC (3.5-10.8) 10^3/ul RBC (4.0-5.4) 10^6/ul Hgb (12.0-16.0) g/dl Hct (35-47) % MCV (80-97) fL MCH (27-31) pg MCHC (31-36) g/dl RDW (10.5-15) % Plt Count (150-450) 10^3/ul MPV (7.4-10.4) um3 Neut % (Auto) (38-83) % Lymph % (Auto) (25-47) % [place] % (Auto) (1-9) % Eos % (Auto) (0-6) % Baso % (Auto) (0-2) % Absolute Neuts (auto) (1.5-7.7) 10^3/ul Absolute Lymphs (auto) (1.0-4.8) 10^3/ul Absolute Monos (auto) (0-0.8) 10^3/ul Absolute Eos (auto) (0-0.6) 10^3/ul Absolute Basos (auto) (0-0.2) 10^3/ul Absolute Nucleated RBC 10^3/ul Nucleated RBC % D-Dimer, Quantitative 636 H (Less Than 230) ng/mL Sodium (133-145) mmol/L Potassium (3.5-5.0) mmol/L Chloride (101-111) mmol/L Carbon Dioxide (22-32) mmol/L Anion Gap (2-11) mmol/L BUN (6-24) mg/dL Creatinine (0.51-0.95) mg/dL Est GFR ( Amer) (>60) Est GFR (Non-Af Amer) (>60) BUN/Creatinine Ratio (8-20) Glucose (70-100) mg/dL Lactic Acid (0.5-2.0) mmol/L Calcium (8.6-10.3) mg/dL Total Bilirubin (0.2-1.0) mg/dL AST (13-39) U/L ALT (7-52) U/L Alkaline Phosphatase (34-104) U/L Troponin I (<0.04) ng/mL C-Reactive Protein (< 5.00) mg/L B-Natriuretic Peptide 560 H ( - 100) pg/mL Total Protein (6.4-8.9) g/dL Albumin (3.2-5.2) g/dL Globulin (2-4) g/dL Albumin/Globulin Ratio (1-3) Microbiology and Other Data: Microbiology 07/17/16 21:00 Influenza Types A,B Antigen (JACOB) - Final Nasal Specimen received for Influenza A/B Molecular testing Assess/Plan/Problems-Billing Ms Hernandez is an 86 yo F who has a h/o afib, myelofibrosis, HTN, COPD, diastolic CHF, hypothyroidism and depression/anxiety who presented to the ER from home with c/o cough and fever and was found to have a LLL infiltrate and fever and was admitted for treatment of pneumonia. - Patient Problems (1) LLL pneumonia Current Visit: Yes Status: Acute Code(s): J18.1 - LOBAR PNEUMONIA, UNSPECIFIED ORGANISM SNOMED Code(s): 700540856 Comment: The patient's breath sounds are much worse today. Will continue current Abx regimen but I think her worsened respiratory status is secondary to fluid overload. She is to get her usual dose of torsemide this AM. If no improvement will give IV lasix. She is not stable enough to go home today. I have asked for a family meeting as I believe the patient is going to continue to fail and I believe she would do better with hospice. (2) Elevated troponin Current Visit: Yes Status: Acute Code(s): R74.8 - ABNORMAL LEVELS OF OTHER SERUM ENZYMES SNOMED Code(s): 122544510 Comment: Likely secondary to demand ischemia. Subsequent troponin trended down. No further work up at this time. (3) Hyponatremia Current Visit: Yes Status: Acute Code(s): E87.1 - HYPO-OSMOLALITY AND HYPONATREMIA SNOMED Code(s): 01821530 Comment: Improving. Continue to follow intermittently-recheck tomorrow. (4) Diastolic CHF Current Visit: Yes Status: Acute Code(s): I50.30 - UNSPECIFIED DIASTOLIC ( CONGESTIVE) HEART FAILURE SNOMED Code(s): 959402365 Comment: Pt likely with pulmonary edema. Check CXR. Will give usual dose of torsemide this AM and if she fails to improve will give IV lasix. Family meeting as above. (5) Myelodysplasia (myelodysplastic syndrome) Current Visit: Yes Status: Chronic Code(s): D46.9 - MYELODYSPLASTIC SYNDROME , UNSPECIFIED SNOMED Code(s): 278393356 Comment: H/H stable but low secondary to her h/o myelofibrosis. Follow up as outpatient with Dr. Steel. (6) Atrial fibrillation Current Visit: Yes Status: Acute Code(s): I48.91 - UNSPECIFIED ATRIAL FIBRILLATION SNOMED Code(s): 00303923 Comment: HR is controlled. Continue diltiazem CD and digoxin. (7) COPD (chronic obstructive pulmonary disease) Current Visit: Yes Status: Acute Code(s): J44.9 - CHRONIC OBSTRUCTIVE PULMONARY DISEASE, UNSPECIFIED SNOMED Code(s): 99505713 Comment: No signs of exacerbation. Continue home inhaler/neb regimen. (8) Hypothyroidism Current Visit: Yes Status: Acute Code(s): E03.9 - HYPOTHYROIDISM, UNSPECIFIED SNOMED Code(s): 18094949 Comment: Continue home dose of synthroid. (9) HLD (hyperlipidemia) Current Visit: Yes Status: Acute Code(s): E78.5 - HYPERLIPIDEMIA, UNSPECIFIED SNOMED Code(s): 95780886 Comment: Continue statin. (10) DVT prophylaxis Current Visit: Yes Status: Acute Code(s): UNG2390 - SNOMED Code(s): 950971014 Comment: SQ heparin (11) Full code status Current Visit: Yes Status: Acute Code(s): Z78.9 - OTHER SPECIFIED HEALTH STATUS SNOMED Code(s): 012456955
[2016-07-20] MEDS: Diltiazem CD CAP* 240 MG PO SCH (09:06)
[2016-07-20] MEDS: Aspirin EC Low Dose* 81 MG TAB.EC PO SCH (09:07)
[2016-07-20] MEDS: Torsemide TAB* 20 MG PO SCH (09:07)
[2016-07-20] MEDS: Atorvastatin* 10 MG TAB PO SCH (09:07)
--- NOTE | 2016-07-20 10:14 | RAD ---
HISTORY: Evaluate for worsening pulmonary edema COMPARISONS: July 19, 2016 VIEWS:1: Single frontal portable view of the chest at 9:20 AM FINDINGS: LINES AND TUBES: A left-sided pacemaker is noted. A prosthetic heart valve is noted CARDIOMEDIASTINAL SILHOUETTE: The cardiac silhouette is enlarged. The cardiomediastinal silhouette is otherwise normal for portable technique. PLEURA: The costophrenic angles are sharp. No pleural abnormalities are noted. LUNG PARENCHYMA: There is a diffuse reticular pattern with indistinct pulmonary vessels. This has developed from the previous examination. ABDOMEN: The upper abdomen is clear. There is no subphrenic gas. BONES AND SOFT TISSUES: The patient is status post median sternotomy. IMPRESSION: CARDIOMEGALY WITH PULMONARY INTERSTITIAL EDEMA
[2016-07-20] MEDS: Albuterol 2.5 MG/3 ML NEB.SOL* (0.083%) INH PRN ×2 (13:21→20:23)
[2016-07-20] MEDS: Cefepime(*) 2 GM in NS 0.9% 50 ML* 50 ML IVPB SCH (21:15)
[2016-07-20] MEDS: Digoxin TAB* 0.125 MG PO SCH (21:15)
[2016-07-20] MEDS: traMADol TAB* 50 MG PO PRN (21:20)
[2016-07-20] MEDS: Azithromycin IV(*) 500 MG in NS 0.9% 250 ML* 250 ML IVPB SCH (22:43)
[2016-07-21] MEDS: traMADol TAB* 50 MG PO PRN (04:10)
[2016-07-21 05:31] LABS: Hematocrit 21 % (35-47); Mean Corpuscular HGB Conc 33 g/dl (31-36); Mean Corpuscular Hemoglobin 36 pg (27-31); Mean Corpuscular Volume 109 fL (80-97); Mean Platelet Volume 8 um3 (7.4-10.4); Red Blood Count 1.92 10^6/ul (4.0-5.4); Red Cell Distribution Width 27 % (10.5-15); White Blood Count 5.2 10^3/ul (3.5-10.8)
[2016-07-21 05:35] LABS: Comments Flag Yes
[2016-07-21 05:41] LABS: EGFR African American 110.6 (>60); Potassium 4.3 mmol/L (3.5-5.0)
[2016-07-21] MEDS: Heparin VIAL(*) 5000 UNITS/ML VIAL (FIVE THOUSAND) SUBCUT SCH (05:55)
[2016-07-21] MEDS: Levothyroxine TAB* 50 MCG TAB PO SCH (05:55)
[2016-07-21 07:25] VITALS: BP 98/48
[2016-07-21] MEDS: Tiotropium CAP.INH* CAP.INH/18 MCG INH SCH (07:45)
[2016-07-21] MEDS: Budesonide NEB* 0.5 MG/2 ML NEB.SOLN INH SCH (07:45)
[2016-07-21] MEDS: Acetaminophen TAB* 325 MG PO PRN (08:35)
[2016-07-21] MEDS: Aspirin EC Low Dose* 81 MG TAB.EC PO SCH (08:36)
[2016-07-21] MEDS: Diltiazem CD CAP* 240 MG PO SCH (08:36)
[2016-07-21] MEDS: Atorvastatin* 10 MG TAB PO SCH (08:36)
--- NOTE | 2016-07-21 12:12 | DS ---
DATE OF ADMISSION: 07/17/2016. DATE OF DISCHARGE: 07/21/2016. PRIMARY CARE PHYSICIAN: Dr. Holloway. PRIMARY DIAGNOSIS: Left lower lobe pneumonia. SECONDARY DIAGNOSES: Acute diastolic heart failure exacerbation, severe protein calorie malnutrition, elevated troponin with demand ischemia, hyponatremia, myelodysplastic syndrome, atrial fibrillation, COPD, hypothyroidism, hyperlipidemia. DISPOSITION ON DISCHARGE: Home with 24 hours care and Hospice, to be signed on with [facility] today on the day of discharge. MEDICATIONS ON DISCHARGE: 1. Torsemide 10 mg Wednesday, Wednesday, and Wednesday. 2. Tiotropium one cap inhaled at bedtime. 3. Pravastatin 20 mg daily. 4. Levothyroxine 50 mcg daily. 5. Formoterol 20 mcg twice daily. 6. Diltiazem ER 240 mg daily. 7. Digoxin 0.125 mg Wednesday, Wednesday, Wednesday, , and Wednesday. 8. Budesonide 0.5 mg inhaled twice daily. 9. Aspirin 81 mg daily. 10. Tiotropium one cap inhaled daily. 11. Morphine oral concentrate 5 mg every 2 hours as needed for shortness of breath or pain. 12. Lorazepam 0.5 mg every 4 hours as needed for agitation. 13. Guaifenesin 10 ml every 4 hours as needed for cough. HISTORY OF PRESENT ILLNESS AND HOSPITAL COURSE: This is an 86-year-old female with a past medical history as outlined in the history of present illness on the day of admission who presented to the hospital with a progressive worsening cough and fever prior to presentation. She is thought to have a pneumonia consistent with CAT scan. She was started on antibiotics. However, despite improvement in her leukocytosis, her lung sounds progressively worsen thought to be consistent with diastolic heart failure exacerbation. She was diuresed with some improvement. She was seen in conjunction with our Palliative Care team. Patient and her family opted to return home with hospice services. Her antibiotics were discontinued on the day of discharge. Her leukocytosis had resolved. She had no additional fevers after the day of admission on 2016. She will be maintained on her COPD medications as well as atrial fibrillation medications with the addition Morphine and Lorazepam as needed. She has not needed Morphine during the course of the hospital stay. She did receive Lorazepam the night prior to discharge. She had very minimal intake during the course of her hospital stay. She has a BMI of 15 with severe protein ____calorie wasting and severe muscle wasting with temporal wasting. At the time of discharge, she is a DNI but not DNR. This is to be evaluated further by hospice care services at home today. This was a complicated hospital stay. Please refer to the complete medical record for further details surrounding this patient's hospital stay. Greater than 45 minutes were spent on the discharge of this patient with greater than half spent [id number] with the patient and her aide. CC: Dr. Holloway * [id number]/CPS #: [id number]
== END 2016-07-21 12:50 | disposition hospice, home (50) | DRG 193 ==
LOC: ED 17:30 → MED 20:34
PROVIDERS: ADMIT Internal Medicine; ATTEND Internal Medicine
DX: J18.9 Pneumonia, unspecified organism (principal); I50.31 Acute diastolic (congestive) heart failure; E43 Unspecified severe protein-calorie malnutrition; I24.8 Other forms of acute ischemic heart disease; I48.91 Unspecified atrial fibrillation; J44.9 Chronic obstructive pulmonary disease, unspecified; I34.0 Nonrheumatic mitral (valve) insufficiency; Z68.1 Body mass index [BMI] 19.9 or less, adult; E87.1 Hypo-osmolality and hyponatremia; I11.0 Hypertensive heart disease with heart failure; R74.8 Abnormal levels of other serum enzymes; D46.9 Myelodysplastic syndrome, unspecified; E03.9 Hypothyroidism, unspecified; E78.5 Hyperlipidemia, unspecified; M19.90 Unspecified osteoarthritis, unspecified site; F41.9 Anxiety disorder, unspecified; F32.9 Major depressive disorder, single episode, unspecified; Z95.2 Presence of prosthetic heart valve; Z95.0 Presence of cardiac pacemaker; Z96.653 Presence of artificial knee joint, bilateral; Z79.01 Long term (current) use of anticoagulants; Z79.82 Long term (current) use of aspirin; Z79.899 Other long term (current) drug therapy
CPT/HCPCS: 36415; 71010; 71020; 71275; 80048; 80053; 80162; 81003; 83605; 83880; 83930; 83935; 84300; 84484; 85025; 85027; 85379; 85610; 86140; 87040; 87502; 87899; 93005; 94640; 94760; 99213; A9270-GY; G0463; J0456; J0692; J1644; J2060; Q9967